=== PATIENT | female | born 1930 | race Caucasian/White ===

== ENCOUNTER → 2016-11-21 | Outpatient (CLI) | payer BC ==
[~2016-11-21] MED LIST: ASPI-232 PO; CALC/MAG/ZINC PO; CHOL1000 PO; HMLI SC; INSDGIPEN SC; LISI-729 PO; NIAC500T11 PO; PLV75 PO; SIMV40TA2 PO
[2016-11-21 10:04] LABS: ESTIMATED AVERAGE GLUCOSE 146 mg/dl; HA1C FLAG Normal (Normal)
[2016-11-21 10:14] LABS: ALT/SGPT 19 U/L (12-78); AST/SGOT 18 U/L (15-37); BLOOD UREA NITROGEN 33 mg/dl (7-18); BUN/CREATININE RATIO 30.3 (10-20); CALCIUM 8.8 mg/dl (8.5-10.1); CARBON DIOXIDE 29 mmol/L (21-32); CHLORIDE 110 mmol/L (98-107); GLUCOSE 97 mg/dl (70-99); POTASSIUM 4.6 mmol/L (3.5-5.1); SODIUM 145 mmol/L (136-145)
[2016-11-21 10:27] LABS: ALKALINE PHOSPHATASE 78 U/L (45-117); CHOLESTEROL 118 mg/dl (0-200); HDL CHOLESTEROL 40 mg/dl; LDL CHOLESTEROL CALCULATED 57 mg/dl; TRIGLYCERIDES 104 mg/dl (0-150); VERY LOW DENSITY LIPOPROT CALC 21 mg/dl
[2016-11-21 10:40] LABS: RATIO 51.6 mcg/mg (0-30.0)
== END | disposition home or self-care (01) ==
LOC: C.LAB1850 08:14
PROVIDERS: ATTEND Nurse Practitioner Family
DX: E11.40 Type 2 diabetes mellitus with diabetic neuropathy, unspecified (principal); I25.10 Atherosclerotic heart disease of native coronary artery without angina pectoris

== ENCOUNTER → 2017-05-19 | Outpatient (CLI) | payer BC ==
[2017-05-19 10:39] LABS: CHOLESTEROL/HDL RATIO 3.3
[2017-05-19 10:43] LABS: RATIO 29.1 mcg/mg (0-30.0)
== END | disposition home or self-care (01) ==
LOC: C.LAB1850 09:08
PROVIDERS: ATTEND Internal Medicine Cardiovascular Disease
DX: E11.40 Type 2 diabetes mellitus with diabetic neuropathy, unspecified (principal); E78.5 Hyperlipidemia, unspecified

== ENCOUNTER → 2017-11-24 | Outpatient (CLI) | payer BC ==
[~2017-11-24] MED LIST changes: +ASPCH81 PO; +CEPH500C PO; +CHOL100027 PO; +CLOP1TAB15 PO; +CYAN10005 PO; +INSU100I2 SQ; +LPT40 PO; +VITA400C3 PO
[2017-11-24 10:05] LABS: HEMOGLOBIN A1C 6.7 % (4.5-5.6)
--- NOTE | 2017-12-08 06:42 | CODING QUERY NO DIAGNOSIS ---
TREATMENT RENDERED WITHOUT A DIAGNOSIS Dr. Syed, To promote full compliance with coding requirements relating to patient care, physician participation is requested in all cases of named account executive uncertainty. Please assist us with providing a diagnosis/symptom for the test(s) below: A diagnosis/symptom was not documented on your Order. A valid diagnosis/symptom is required to bill all insurances. Please remember that we are unable to code a diagnosis of rule out, probable, possible, questionable, or suspected. Tests that require a diagnosis: * SGOT DIAGNOSIS: * LIPID PANEL DIAGNOSIS: * SGPT (ALT) DIAGNOSIS: DATE OF SERVICE: 11/24/17 Provider Signature: Date: Thank you Garfield Hoang [facility] Information Management Once completed, please kindly fax back to [phone] For questions please call [phone]
== END | disposition home or self-care (01) ==
LOC: C.LAB1850 08:36
PROVIDERS: ATTEND Internal Medicine Cardiovascular Disease
DX: E11.40 Type 2 diabetes mellitus with diabetic neuropathy, unspecified (principal); E78.00 Pure hypercholesterolemia, unspecified

== ENCOUNTER → 2018-03-24 | Outpatient (CLI) | payer BC ==
[~2018-03-24] MED LIST changes: -ASPI-232 PO; -CEPH500C PO; -CHOL1000 PO; -HMLI SC; -PLV75 PO; -SIMV40TA2 PO
== END | disposition home or self-care (01) ==
LOC: C.RDSM 14:00
PROVIDERS: ATTEND Family Medicine
DX: M25.551 Pain in right hip (principal); M25.552 Pain in left hip

== ENCOUNTER 2019-05-09 11:10 | Observation (INO) ==
[2019-05-09] MEDS ORDERED: SODIUM CHLORIDE 0.9% 500 ML IV ONE (12:10)
[2019-05-09 12:29] LABS: Appearance Urine Clear (Clear); Bacteria Urine Automated 3+ (Negative); Bilirubin Urine Negative (Negative); Blood Urine 1+ (Negative); Color Urine Yellow; Glucose Urine UA Negative (Negative); Ketones Urine Negative (Negative); Leukocyte Esterase Urine 2+ (Negative); Nitrite Urine Positive (Negative); Protein Urine Negative (Negative); RBC Urine Automated 0-4 /hpf (0-4); Specific Gravity Urine 1.015 (1.000-1.030); Urobilinogen Urine Negative (Negative); WBC Urine Automated >30 /hpf (0-5)
[2019-05-09 12:34] LABS: Basophils # (auto) 0.02 K/uL (0-0.2); Basophils % (auto) 0.3 %; Eosinophils % (auto) 1.3 %; Hematocrit (blood only) 35.8 % (37-47); Hemoglobin 11.7 g/dL (12.0-16.0); Immature Granulocytes # (auto) 0.02 K/uL (0.00-0.02); Immature Granulocytes % (auto) 0.3 %; Lymphocytes # (auto) 3.58 K/uL (1.2-3.4); Lymphocytes % (auto) 45.3 %; Mean Corpuscular Hgb Conc 32.7 g/dL (32-36); Mean Corpuscular Volume 88.6 fL (80-100); Mean Platelet Volume 11.2 fL (7.4-10.4); Monocytes # (auto) 0.33 K/uL (0.11-0.59); Monocytes % (auto) 4.2 %; Neutrophils # (auto) 3.85 K/uL (1.4-6.5); Neutrophils % (auto) 48.6 %; Platelet Count 173 K/uL (130-400); RDW Coefficient of Variation 13.9 % (11.5-14.5); RDW Standard Deviation 44.9 fL (36.4-46.3); Red Blood Count 4.04 M/uL (4.2-5.4)
[2019-05-09 12:41] LABS: Alanine Aminotransferase 41 U/L (12-78); Albumin Level 3.4 gm/dl (3.4-5.0); Aspartate Aminotransferase 35 U/L (15-37); BUN Creatinine Ratio 27.4 (10-20); Blood Urea Nitrogen 36 mg/dl (7-18); Carbon Dioxide 23 mmol/L (21-32); Chloride 106 mmol/L (98-107); Creatinine Clr Calc Pharmacy 25.6 ml/min; Est GFR (African American) 41.6; Est GFR (Non-African American) 35.9; Glucose 213 mg/dl (70-99); Lipase 195 U/L (73-393); Magnesium 1.9 mg/dl (1.8-2.4); Sodium 137 mmol/L (136-145)
--- NOTE | 2019-05-09 12:46 | XRay Report ---
XR chest 1V portable CLINICAL HISTORY: Chest pain. COMPARISON STUDY: Chest radiograph November 28, 2017. FINDINGS: Note is made of median sternotomy wires and mediastinal surgical clips. Cardiomediastinal s ilhouette is normal. There is no pneumothorax or pleural effusion. No consolidation is present. Minim al left lung opacities favor atelectasis. There is subtle interstitial prominence. IMPRESSION: Possible mild pulmonary edema. Electronically signed by: Andrew Rodgers M.D. 05/09/2019 12:44 PM
[2019-05-09 12:52] LABS: Albumin Globulin Ratio 0.9 (0.9-2); Alkaline Phosphatase 90 U/L (45-117); Bilirubin,Total 0.9 mg/dl (0.2-1); Globulin 3.6 gm/dl (2.5-4.0); Phosphorus 3.6 mg/dl (2.5-4.9); Troponin I < 0.015 ng/ml (0-0.045)
[2019-05-09] MEDS ORDERED: cefTRIAXone SODIUM 2,000 MG/70 ML BAG IV STA (12:53)
[2019-05-09] MEDS ORDERED: ACETAMINOPHEN 1,000 MG/100 ML VIAL IV STA (12:54)
[2019-05-09] MEDS ORDERED: OPTIRAY 320 125ml IV PRN (13:28)
--- NOTE | 2019-05-09 13:50 | CT Scan Report ---
UNENHANCED CT OF THE BRAIN; CT ANGIOGRAM OF THE BRAIN; CT ANGIOGRAM OF THE NECK CLINICAL HISTORY: Aphasia. COMPARISON STUDY: CT of the brain dated 11/28/2017. CT angiogram of the head and neck dated 11/29/2017 . TECHNIQUE: Unenhanced axial CT scan of the brain is performed. Subsequently, following the IV adminis tration of 120 of Optiray 320, CT angiogram of the head and neck was performed from the aortic arch t o the vertex. Images are reviewed in the axial, sagittal, and coronal planes. 3-D MIPS images are cre ated and assessed. IV contrast was administered without complication. All measurements were calculate d based on NASCET criteria. A dose lowering technique was utilized adhering to the principles of ALA RA. CT DOSE: 1089.01 mGy.cm FINDINGS: Brain parenchyma: There is age-related involutional change noting minimal microangiopathic disease. T here is no hemorrhage, mass effect, or evidence of acute territorial ischemia by CT criteria. There i s no evidence of enhancing mass lesion on the angiogram phase images. The ventricles, sulci, and cist erns are prominent secondary to involutional change. Hernandez-white matter differentiation is preserved. No extra-axial fluid collection is seen. Thoracic aorta: There is atherosclerotic calcification of the thoracic aorta. Visualized portions of the thoracic aorta are normal in caliber. The aortic arch demonstrates standard 3-vessel anatomy. Right carotid arterial system: The right common carotid artery is widely patent, as are the right int ernal and external carotid arteries. Atherosclerotic plaque is noted in the carotid bulb. Left carotid arterial system: The left common carotid artery is widely patent. There is less than 50% luminal narrowing at the origin of the left internal carotid artery secondary to calcified plaque. T he left internal carotid artery is otherwise widely patent. There is high-grade stenosis of the origi n of the left external carotid artery. The remainder of the vessels patent. Vertebral arteries: The vertebral arteries are widely patent and codominant. Subclavian arteries: Widely patent bilaterally. Intracranial vasculature: There is atherosclerotic calcification of the cavernous carotid and vertebr al arteries. The [place] is developmentally complete. The internal carotid arteries are yanez nt at the skull base, as are the anterior and middle cerebral arteries bilaterally. The vertebrobasil ar system and posterior cerebral arteries are widely patent. The vertebral arteries are codominant. T here is no aneurysm, high-grade stenosis, or focal vessel cut off seen throughout the intracranial ci rculation. Jugular veins: Patent bilaterally. Dural sinuses: Patent. Lung apices: Midline sternotomy wires are noted. Partially visualized upper lobe lung parenchyma appe ars clear. Soft tissues: The visualized pharyngeal soft tissues are normal in appearance noting angiographic pha se technique. The oropharyngeal airway appears widely patent. There are subcentimeter low-attenuation thyroid nodules. Calcifications are present within both thyroid lobes. The salivary glands are aguilar l in appearance. No cervical lymphadenopathy is seen. There are scattered calcified tonsilliths. Skeletal structures: The skeletal structures are osteopenic. The calvarium appears intact. The cervic al spine is maintained noting multilevel spondylosis. No lytic or blastic lesion is seen. Orbits: The bony orbits are intact. Orbital contents are normal in appearance noting bilateral ocular lens implants. Sinuses and mastoids: There is trace mucosal thickening within the maxillary antra. The remaining par anasal sinuses are clear. The mastoid air cells are well pneumatized. IMPRESSION: 1. There is no hemorrhage, mass effect, or evidence of acute territorial ischemia by CT criteria. 2. Unremarkable CT angiogram of the brain. 3. There is less than 50% stenosis at the origin of the left internal carotid artery secondary to sof t plaque. 4. There is high-grade stenosis at the origin of the left external carotid artery. 5. Otherwise unremarkable CT angiogram of the neck. Electronically signed by: Abdoul Shanks M.D. 05/09/2019 1:49 PM
--- NOTE | 2019-05-09 18:13 | History & Physical Report ---
Date of Service May 09, 2019 Assessment & Plan (1) UTI (urinary tract infection): Patient is an 88 year old female with PMHx DM2, S/P CABGx4, HLD, Spinal Stenosis, presenting initially with chief complaint of aphasia and dysuria. UTI -Urine in ED was (+) for Nitrates, Blood, and WBC -Urine sent for culture, results pending -Received 2000mg Ceftriaxone in the ED -Ceftriaxone 1000mg IV Q24h ordered Aphasia -Aphasia appears to have mostly resolved a this point in time. -CT Head negative for acute findings. -MRI pending. -If symptoms worsen/return can consider Neurology consult. -Patient did note a steroid injection in R shoulder 1 week ago. Recent steroid use, while localized, may have some contribution to her altered mental status. Diabetes -Continue home Insulin Glargine scheduled. -SSI ordered. -HgA1C pending. 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 Syed as her [employer] Consultant, next visit in May HLD -Continue home Atorvastatin 40mg QHS Spinal Stenosis of Lumbar Region -Patient states this has been a chronic ongoing issue. -Recently taken off of Gabapentin within the past week. -Currently stable. Dispo: Telemetry Obs. FEN: DM Diet DVT: SCD Code: DNR/DNI Present on Admission?: Yes (2) Aphasia: (3) Diabetes: (4) S/P CABG x 4: (5) HLD (hyperlipidemia): (6) Spinal stenosis of lumbar region: History of Present Illness Chief Complaint: Aphasia Primary Care Provider: Jez Swain DO Patient is an 88 year old female with PMHx of DM2, HLD, HTN, S/P CABGx4, Spinal Stenosis who lives alone at home who presents initially with chief complaint of aphasia and dysuria. Patient states that around midnight last night she was awoken from her sleep with a frontal headache. She notes that she just went back to bed and was awoken again around 7AM this morning when her nephew left her house. She states that at that time she still continued to have her headache, but also was having difficulty word finding and opening her medication bottles. She states that at that time she took 2 aspirin 325mg since she was "afraid of having a stroke" and went back to bed. Around 10:30AM she was awoken by a call from her daughter in law who noted the patient was calling her the wrong name and was still having difficulties talking. At that time she decided to pick the patient up and to bring her to the ED. Patient is currently seated in bed comfortably with her Daughter and Son-in-Law present in the room. She states that she is feeling much better and that her headache has mostly resolved. She does still state she has slight difficulty finding certain words, but that she can understand what people are saying and is able to navigate what she wants to say with other words. She states that she was not having any neurological symptoms yesterday morning or evening, but has been noting some dysuria and burning when she urinates. She notes that she has a similar course in the past where she would have a UTI that would progress to altered mental status like symptoms. She states that her most recent episode was 18 months ago and that it had happened again 3 years prior as well. Each time she was treated appropriately with antibiotics and she had no lasting focal deficits after treatment. Allergies Allergy/AdvReac Type Severity Reaction Status Date / Time No Known Allergies Allergy Mild Unverified 05/09/19 11:56 Home Medications Home Medications Medication Instructions Recorded Confirmed Type atorvastatin 40 mg tablet 40 mg PO HS #90 tab 05/03/19 05/09/19 History blood sugar diagnostic strips #10 ea 05/03/19 05/09/19 History clopidogrel 75 mg tablet 75 mg PO HS tab 05/03/19 05/09/19 History insulin glargine (U- 100) 100 18 units SUBCUT HS #2 ml 05/03/19 05/09/19 History unit/mL subcutaneous solution insulin lispro (U- 100) 100 6 units SUBCUT DAILY@1200,1800 #1 05/03/19 05/09/19 History unit/mL subcutaneous pen ml insulin syringe U-100 with needle #10 ea 05/03/19 05/09/19 History 0.5 mL 31 gauge x 12/30" lisinopril 5 mg tablet 5 mg PO QAM tab 05/03/19 05/09/19 History multivitamin with minerals tablet 1 tab PO QAM tab 05/03/19 05/09/19 History pen needle, diabetic 32 gauge x #10 ea 05/03/19 05/09/19 History " Past Med/Surg History Medical History Diabetes (Chronic) UTI (urinary tract infection) Surgical History S/P CABG x 4 (Resolved) Family History Sister Diabetes Dyslipidemia Sister Dyslipidemia Brother Heart disease Father Cancer Mother Diabetes Other No pertinent family history in first degree relatives Social History Feels Safe at Home: Yes Smoking Status: Never smoker Hx Alcohol Use: No Hx Substance Use: No Review of Systems Constitutional: no fever, no chills, no body aches and no weakness Eyes: no blind spots, no diplopia, no eye pain, no loss of peripheral vision, no photophobia, not seeing flashes, no tunnel vision and no worsening vision Ear, Nose, Mouth, Throat: no ear pain, no tinnitus, no hearing loss and no dizziness Respiratory: no cough, no chest congestion, no dyspnea and no pain with cough Cardiovascular: + dyspnea on exertion (patient states this is chronic); no chest pain, no radiating jaw, neck or arm pain, no palpitations, no lightheadedness, no edema and no calf pain Gastrointestinal: no abdominal pain, no nausea, no vomiting, no constipation, no diarrhea/loose stools, no blood in stools and no melena Genitourinary: + dysuria and + urinary frequency (states this is chronic); no hematuria and no flank pain Musculoskeletal: + back pain (chronic low back pain); no myalgia and no muscle weakness Integumentary: no rash Neurologic: + loss of sensation (decreased sensation of LE b/l 2/2 neuropathy), + tingling, + paresthesia and + problem reported (Difficulty word finding/aphasia); no localized weakness, no headache(s) and no behavioral changes Psychiatric: no behavioral changes Physical Exam Physical Exam: Exam as done by Silvia Escalera DO: Constitutional: WD/WN, vitals as above well developed, well nourished and cooperative; no acute distress Eyes: PERRL, conjunctivae normal, anicteric sclerae normal visual guthrie by confrontation, + anicteric sclerae, PERRL and EOM intact bilaterally ENMT: external ear and nose normal, oropharynx normal Neck: trachea midline, no thyromegaly normal visual inspection and trachea midline Respiratory: normal respiratory effort, lungs clear to auscultation Cardiovascular: Rate/Rhythm: regular rate and regular rhythm Heart Sounds: normal S1 and normal S2 Extremities: no calf tenderness and no edema Gastrointestinal (Abdomen): Inspection/Auscultation: abdomen normal to inspection and normal bowel sounds; abdomen not distended Percussion/Palpation: abdomen soft; abdomen nontender and abdomen not rigid Musculoskeletal: Head/Neck/Chest: normocephalic and head atraumatic Neg for peripheral LE edema, + pedal pulses Skin: no rashes, warm and dry Neurologic: normal touch/pain/proprioception, CN's II-XI intact bilaterally and awake; not confused and not obtunded Speech / Cognition: + abnormal speech (slow speech pattern with pauses for word finding) and + expressive aphasia Motor/Sensory: no pronator drift Cranial Nerves: PERRL, normal accommodation, EOM intact bilaterally, normal facial strength, tongue midline, normal hearing, able to rotate head bilaterally, able to elevate shoulders bilaterally, no nystagmus and symmetric palate elevation Psychiatric: A+Ox3, euthymic affect Genitourinary: no CVA tenderness Lymphatic: Exam as done by Silvia Escalera DO Results & Data Vital Signs (Past 12 Hours) Vital Signs Temp Pulse Pulse Resp BP BP Pulse Ox 05/09/19 15:00 54 L 16 153/75 H 97 05/09/19 13:16 49 L 16 162/58 H 95 05/09/19 12:10 98 05/09/19 11:20 36.5 C 64 18 153/66 H 98 Laboratory Results Abnormal lab results 05/09/19 05/09/19 05/09/19 Range/Units 11:35 11:35 12:15 RBC 4.04 L (4.2-5.4) M/uL Hgb 11.7 L (12.0-16.0) g/dL Hct 35.8 L (37-47) % MPV 11.2 H (7.4-10.4) fL Lymph # (Auto) 3.58 H (1.2-3.4) K/uL BUN 36 H (7-18) mg/dl Creatinine 1.32 H (0.6-1.2) mg/dl BUN/Creatinine Ratio 27.4 H (10-20) Glucose 213 H (70-99) mg/dl Urine Blood 1+ H (Negative) Urine Nitrite Positive A (Negative) Ur Leukocyte Esterase 2+ H (Negative) Urine WBC (Auto) >30 H (0-5) /hpf U Epithel Cells (Auto) 5-10 H (0-5) /lpf Urine Bacteria (Auto) 3+ H (Negative) Medications Administered Current Inpatient Medications Ioversol (Optiray 320 125ml) 120 ml IV ONCE PRN PRN Reason: Interaction Checking Stop: 05/13/19 13:27 Last Admin: 05/09/19 13:29 Dose: 120 ml Documented by: Code Status & VTE Plan Code Status DNR/DNI VTE Prophylaxis Plan VTE Prophylaxis will be ordered: Yes Supervising Physician Co-Signing Physician Notes Pt seen and examined by me. States word finding issues earlier this AM, but improving. Still not at her usual. Hx of similar sx about 18 months go with UTI. 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 Also notes urinary burning. Denies chest pain or SOB. Tolerating PO without issue. Agree with HPI/ROS as noted by resident See above for my exam in PE section Agree with plan as outlined above UTI, ceftriaxone, cx pending TIA vs CVA vs early sepsis from UTI CT head/CTA noted MRI pending Continue plavix Hold on neuro c/s for now given similar sx with UTI and on plavix Cr 1.3, baseline cr 1.3--monitor Taking PO, no IVF PG Care Time/CCT Total # of Minutes Spent Total Time Spent with Patient: Total time spent is greater than 50% in coordination of care (as documented) at patient's floor/unit and/or counseling patient: Resident Activity Tracking Resident Involvement: Resident Care Provided Care Provided: Adult Hospital Medicine
--- NOTE | 2019-05-09 19:49 | Emergency Department Note ---
Entered by Georgina Dooley acting as a scribe for Lawson Shook MD History of Present Illness General Chief complaint: Urinary Symptoms Stated complaint: UTI Time Seen by Provider: 05/09/19 12:09 Source: patient History of Present Illness Onset (ago): hour(s) (14) Location: head Severity: similar to prior episodes Pain Consistency: + other (persistent) Maximum Pain Intensity: 8 Quality: + other (aphasia) Associated symptoms: + headaches and + other (positive trouble finding right words; positive difficulty getting words out; positive slurring words; negative diarrhea); no nausea/vomiting Treatments prior to arrival: aspirin The patient is a 88 year old female who presents to the Emergency Room with complaints of persistent aphasia that began last night at about 2230, about 14 hours prior to arrival, per the patient's daughter. The patient's daughter states that she was on the phone with the patient last night at this time and the patient was having trouble finding the right words and getting her words out. Per the patient's daughter, the patient is somewhat slurring her words. The patient states that she had a headache that began last night and lasted throughout the night. She states that she took Aspirin this morning for her symptoms. Per the patient's daughter, the patient has had two prior episodes of this and she was found to have UTI at this time and it was believed that the patient may have had a TIA. The patient denies nausea, vomiting, and diarrhea. Home Medications Home Medications Medication Instructions Recorded Confirmed Type atorvastatin 40 mg tablet 40 mg PO HS #90 tab 05/03/19 05/09/19 History blood sugar diagnostic strips #10 ea 05/03/19 05/09/19 History clopidogrel 75 mg tablet 75 mg PO HS tab 05/03/19 05/09/19 History insulin glargine (U- 100) 100 18 units SUBCUT HS #2 ml 05/03/19 05/09/19 History unit/mL subcutaneous solution insulin lispro (U- 100) 100 6 units SUBCUT DAILY@1200,1800 #1 05/03/19 05/09/19 History unit/mL subcutaneous pen ml insulin syringe U-100 with needle #10 ea 05/03/19 05/09/19 History 0.5 mL 31 gauge x 5/16" lisinopril 5 mg tablet 5 mg PO QAM tab 05/03/19 05/09/19 History multivitamin with minerals tablet 1 tab PO QAM tab 05/03/19 05/09/19 History pen needle, diabetic 32 gauge x #10 ea 05/03/19 05/09/19 History /32" Allergies Allergy/AdvReac Type Severity Reaction Status Date / Time No Known Allergies Allergy Mild Unverified 05/09/19 11:56 Past Med/Surg History Medical History Diabetes (Chronic) UTI (urinary tract infection) Surgical History S/P CABG x 4 (Resolved) Family History Sister Diabetes Dyslipidemia Sister Dyslipidemia Brother Heart disease Father Cancer Mother Diabetes Other No pertinent family history in first degree relatives Social History Preferred Language: Venezuelan Communication Ability: Effective Business Continuity Planning Director Required: No Beliefs That Will Affect Care: None Current Living Situation: Alone Other Information That Helps Us Care for You: No Feels Safe at Home: Yes Safety Concerns: Feels Safe At This Time Smoking Status: Never smoker Do You Dip or Chew Tobacco: No ; Second Hand Exposure: No ; Tobacco Cessation Education Requested by Patient: No Hx Alcohol Use: No Hx Substance Use: No Review of Systems See HPI for pertinent positives & negatives. and A total of 10 systems reviewed and were otherwise negative Physical Exam Vital Signs Vital Signs - 24 hr 05/09/19 11:20 05/09/19 12:10 05/09/19 13:16 Temperature 36.5 C Temperature Source Oral Sepsis Recent Fever Within 48 Hours No Sepsis New/Unexplained Change in Mental Status No Sepsis Action Taken by Nursing No Action Required Pulse Rate 64 Pulse Rate [Left] 49 L Respiratory Rate 18 16 Respiratory Effort / Characteristics Non-Labored Non-Labored Spontaneous Respiratory Depth Normal Blood Pressure 153/66 H Blood Pressure [Left Arm] 162/58 H Blood Pressure Mean 95 Blood Pressure Mean [Left Arm] 92 Blood Pressure Position [Left Arm] Lying Pulse Oximetry 98 98 95 Oxygen Delivery Method Room Air Room Air Room Air 05/09/19 15:00 Temperature Temperature Source Sepsis Recent Fever Within 48 Hours Sepsis New/Unexplained Change in Mental Status Sepsis Action Taken by Nursing Pulse Rate Pulse Rate [Left] 54 L Respiratory Rate 16 Respiratory Effort / Characteristics Respiratory Depth Blood Pressure Blood Pressure [Left Arm] 153/75 H Blood Pressure Mean Blood Pressure Mean [Left Arm] 101 Blood Pressure Position [Left Arm] Pulse Oximetry 97 Oxygen Delivery Method Room Air GENERAL: Awake, alert, fatigued-appearing, in no distress HENT: Normocephalic, atraumatic. Oropharynx with dry mucous membranes and otherwise unremarkable. EYES: Normal conjunctiva. Sclera non-icteric. EOMI. No nystamgus. PEARRL. NECK: Supple. No nuchal rigidity. FROM. No JVD. RESPIRATORY: CTAB. CARDIAC: Regular rate, normal rhythm. Extremities warm and well perfused. Pulses equal. ABDOMEN: Soft, non-distended. No tenderness to palpation. No rebound or guarding. No masses. RECTAL: Deferred. MUSCULOSKELETAL: Chest examination reveals no tenderness. The back is symmetrical on inspection without obvious abnormality. There is no CVA tenderness to palpation. No joint edema. LOWER EXTREMITIES: Calves are equal size bilaterally and non-tender. No edema. No discoloration. NEURO: Subtle word finding difficulty, fluent speech otherwise. Normal sensorium. No sensory or motor deficits noted. 5/5 strength and SILT x4 extremities. SKIN: No rash or jaundice noted. Course 1240: Past medical records reviewed. The patient was evaluated in room A12B. A complete history and physical exam was performed. 1640: I discussed the patient's case with Dr. Escalera- [facility] Hospitalist, she will accept the patient for further evaluation. Administered Medications Ioversol (Optiray 320 125ml) 120 ml IV ONCE PRN PRN Reason: Interaction Checking Stop: 05/13/19 13:27 Last Admin: 05/09/19 13:29 Dose: 120 ml Documented by: [id number] Discontinued Medications Sodium Chloride (Nss) 500 mls @ 999 mls/hr IV .Q31M ONE Stop: 05/09/19 12:40 Last Infusion: 05/09/19 13:36 Dose: 0 mls/hr Documented by: [id number] Admin: 05/09/19 13:04 Dose: 999 mls/hr Documented by: [id number] Ceftriaxone Sodium (Rocephin) 2,000 mg in 70 mls @ 140 mls/hr IV NOW STA Stop: 05/09/19 13:22 Last Infusion: 05/09/19 13:44 Dose: 0 mls/hr Documented by: [id number] Admin: 05/09/19 13:13 Dose: 140 mls/hr Documented by: [id number] Acetaminophen (Ofirmev) 1,000 mg in 100 mls @ 400 mls/hr IV NOW STA Stop: 05/09/19 13:08 Last Infusion: 05/09/19 13:34 Dose: 0 mls/hr Documented by: [id number] Admin: 05/09/19 13:08 Dose: 400 mls/hr Documented by: [id number] Medical Decision Making Differential Diagnosis Differential Diagnosis includes but is not limited to dehydration, stroke, anemia, hypoglycemia, hyponatremia, hypernatremia, urinary tract infection, pneumonia, bronchitis, sepsis, gastroenteritis, additional abdominal pathology, metabolic abnormalities and infections. Medical Records Attestation: I reviewed the patient's medical records. Home Medications Current Medication List: was personally reviewed by me Laboratory Data Attestation: I reviewed the patient's lab results. Result diagrams: 05/09/19 11:35 05/09/19 11:35 Lab Results 05/09/19 05/09/19 05/09/19 Range/Units 11:35 11:35 12:15 WBC 7.90 (4.8-10.8) K/uL RBC 4.04 L (4.2-5.4) M/uL Hgb 11.7 L (12.0-16.0) g/dL Hct 35.8 L (37-47) % MCV 88.6 (80-100) fL MCH 29.0 (25-34) pg MCHC 32.7 (32-36) g/dL RDW Std Deviation 44.9 (36.4-46.3) fL RDW Coeff of [place] 13.9 (11.5-14.5) % Plt Count 173 (130-400) K/uL MPV 11.2 H (7.4-10.4) fL Immature Gran % (Auto) 0.3 % Neut % (Auto) 48.6 % Lymph % (Auto) 45.3 % Maries % (Auto) 4.2 % Eos % (Auto) 1.3 % Baso % (Auto) 0.3 % Immature Gran # (Auto) 0.02 (0.00-0.02) K/uL Neut # (Auto) 3.85 (1.4-6.5) K/uL Lymph # (Auto) 3.58 H (1.2-3.4) K/uL Maries # (Auto) 0.33 (0.11-0.59) K/uL Eos # (Auto) 0.10 (0-0.5) K/uL Baso # (Auto) 0.02 (0-0.2) K/uL Sodium 137 (136-145) mmol/L Potassium 5.0 (3.5-5.1) mmol/L Chloride 106 (98-107) mmol/L Carbon Dioxide 23 (21-32) mmol/L Anion Gap 8.0 (3-11) BUN 36 H (7-18) mg/dl Creatinine 1.32 H (0.6-1.2) mg/dl Est Cr Clr Drug Dosing 25.6 ml/min Est GFR ( Amer) 41.6 Est GFR (Non-Af Amer) 35.9 BUN/Creatinine Ratio 27.4 H (10-20) Glucose 213 H (70-99) mg/dl Calcium 9.0 (8.5-10.1) mg/dl Phosphorus 3.6 (2.5-4.9) mg/dl Magnesium 1.9 (1.8-2.4) mg/dl Total Bilirubin 0.9 (0.2-1) mg/dl AST 35 (15-37) U/L ALT 41 (12-78) U/L Alkaline Phosphatase 90 (45-117) U/L Troponin I < 0.015 (0-0.045) ng/ml Total Protein 7.0 (6.4-8.2) gm/dl Albumin 3.4 (3.4-5.0) gm/dl Globulin 3.6 (2.5-4.0) gm/dl Albumin/Globulin Ratio 0.9 (0.9-2) Lipase 195 (73-393) U/L TSH 1.440 (0.300-4.500) uIu/ml Urine Color Yellow Urine Appearance Clear (Clear) Urine pH 5.0 (4.5-7.5) Ur Specific [place] 1.015 (1.000-1.030) Urine Protein Negative (Negative) Urine Glucose (UA) Negative (Negative) Urine Ketones Negative (Negative) Urine Blood 1+ H (Negative) Urine Nitrite Positive A (Negative) Urine Bilirubin Negative (Negative) Urine Urobilinogen Negative (Negative) Ur Leukocyte Esterase 2+ H (Negative) Urine WBC (Auto) >30 H (0-5) /hpf Urine RBC (Auto) 0-4 (0-4) /hpf U Hyaline Cast (Auto) 1-5 (0-5) /lpf U Epithel Cells (Auto) 5-10 H (0-5) /lpf Urine Bacteria (Auto) 3+ H (Negative) Imaging Data Radiologist's Impression: Radiology results as stated below per my review and the radiologist's interpretation: XR chest 1V portable CLINICAL HISTORY: Chest pain. COMPARISON STUDY: Chest radiograph November 28, 2017. FINDINGS: Note is made of median sternotomy wires and mediastinal surgical clips. Cardiomediastinal silhouette is normal. There is no pneumothorax or pleural effusion. No consolidation is present. Minimal left lung opacities favor atelectasis. There is subtle interstitial prominence. IMPRESSION: Possible mild pulmonary edema. Electronically signed by: Andrew Rodgers M.D. 05/09/2019 12:[address] OF THE BRAIN; CT ANGIOGRAM OF THE BRAIN; CT ANGIOGRAM OF THE NECK CLINICAL HISTORY: Aphasia. COMPARISON STUDY: CT of the brain dated 11/28/2017. CT angiogram of the head and neck dated 11/29/2017. TECHNIQUE: Unenhanced axial CT scan of the brain is performed. Subsequently, following the IV administration of 120 of Optiray 320, CT angiogram of the head and neck was performed from the aortic arch to the vertex. Images are reviewed in the axial, sagittal, and coronal planes. 3-D MIPS images are created and assessed. IV contrast was administered without complication. All measurements were calculated based on NASCET criteria. A dose lowering technique was utilized adhering to the principles of ALARA. CT DOSE: 1089.01 mGy.cm FINDINGS: Brain parenchyma: There is age-related involutional change noting minimal microangiopathic disease. There is no hemorrhage, mass effect, or evidence of acute territorial ischemia by CT criteria. There is no evidence of enhancing mass lesion on the angiogram phase images. The ventricles, sulci, and cisterns are prominent secondary to involutional change. Hernandez-white matter differentiation is preserved. No extra-axial fluid collection is seen. Thoracic aorta: There is atherosclerotic calcification of the thoracic aorta. Visualized portions of the thoracic aorta are normal in caliber. The aortic arch demonstrates standard 3-vessel anatomy. Right carotid arterial system: The right common carotid artery is widely patent, as are the right internal and external carotid arteries. Atherosclerotic plaque is noted in the carotid bulb. Left carotid arterial system: The left common carotid artery is widely patent. There is less than 50% luminal narrowing at the origin of the left internal carotid artery secondary to calcified plaque. The left internal carotid artery i s otherwise widely patent. 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 The remainder of the vessels patent. Vertebral arteries: The vertebral arteries are widely patent and codominant. Subclavian arteries: Widely patent bilaterally. Intracranial vasculature: There is atherosclerotic calcification of the cavernous carotid and vertebral arteries. The [place] is developmentally complete. The internal carotid arteries are patent at the skull base, as are the anterior and middle cerebral arteries bilaterally. The vertebrobasilar system and posterior cerebral arteries are widely patent. The vertebral arteries are codominant. There is no aneurysm, high-grade stenosis, or focal vessel cut off seen throughout the intracranial circulation. Jugular veins: Patent bilaterally. Dural sinuses: Patent. Lung apices: Midline sternotomy wires are noted. Partially visualized upper lobe lung parenchyma appears clear. Soft tissues: The visualized pharyngeal soft tissues are normal in appearance noting angiographic phase technique. The oropharyngeal airway appears widely patent. There are subcentimeter low-attenuation thyroid nodules. Calcifications are present within both thyroid lobes. The salivary glands are normal in appearance. No cervical lymphadenopathy is seen. There are scattered calcified tonsilliths. Skeletal structures: The skeletal structures are osteopenic. The calvarium appears intact. The cervical spine is maintained noting multilevel spondylosis. No lytic or blastic lesion is seen. Orbits: The bony orbits are intact. Orbital contents are normal in appearance noting bilateral ocular lens implants. Sinuses and mastoids: There is trace mucosal thickening within the maxillary antra. The remaining paranasal sinuses are clear. The mastoid air cells are well pneumatized. IMPRESSION: 1. There is no hemorrhage, mass effect, or evidence of acute territorial ischemia by CT criteria. 2. Unremarkable CT angiogram of the brain. 3. There is less than 50% stenosis at the origin of the left internal carotid artery secondary to soft plaque. 4. There is high-grade stenosis at the origin of the left external carotid artery. 5. Otherwise unremarkable CT angiogram of the neck. Electronically signed by: Abdoul Shanks M.D. 05/09/2019 1:49 PM ECG Data Attestation: I personally reviewed and interpreted this ECG as follows: Indication: weakness Rate (beats per minute): 45 Rhythm: sinus bradycardia Findings: + left axis deviation; no acute ischemic change Blood Pressure Blood Pressure Findings: Elevated blood pressure Blood Pressure Disposition: further management by hospitalist SILVANO Narrative The patient is a pleasant 88-year-old woman with a past medical history of hypertension, hyperlipidemia, CABG on Plavix, history of TIA who presents emergency department with difficulty with word finding that began last night and persisted to this morning with associated mild headache per hpi. Of note, the patient arrives coming by her daughter and they report that she had similar symptoms over a year ago that was in the setting of a UTI. However I did review the patient's notes from this admission and while she did have a urinary tract infection it was thought that she had MRI findings that could have suggested a TIA. At that time it was recommended that the patient be on dual antiplatelet therapy for 3 months. Arrival patient is no acute distress, afebrile stable vital signs. The patient appears clinically dry. She does have subtle word finding difficulty but is otherwise able to speak fluently. Daughter reports that the subtle word finding difficulty she exhibits is not her normal status as she is usually quite sharp. On arrival patient is clinically dry. She has intact [id number] and alternating palms. 5/5 strength and SILT x 4 extremities. EKG without overt acute ischemia. Chest x-ray negative for acute process. WBC within normal limits. H/H 11.7/35.8 approximate 2 prior range of values. Platelets within normal limits. Chemistry without acidosis. Creatinine 1.32 similar to prior range of values. Electrolytes and LFTs unremarkable. Troponin negative. UA is consistent with infection with nitrite positive, LE 2+, WBC> 30, 3+ bacteria. Patient was ordered for dose of ceftriaxone. CT head and CTA head and neck negative for acute process and otherwise demonstrates <50% stenosis at the origin of the left ICA and high- grade stenosis at the origin of the left ECA. While the patient does have a UTI which could contribute to the patient's symptoms either directly or by locus menoris, given the patient's history of previous TIA with symptoms that are similar reasonable to admit for further stroke evaluation. Patient and family are agreeable with admission. Case was discussed [place]. [place]alera, [facility] [place], who will evaluate the patient for admission. Impression & Plan Aphasia, Acute UTI Discharge Plan Visit Data *Final* Discharge Date/Time: 05/09/19 20:30 Chief Complaint: Urinary Symptoms Stated Complaint: UTI ED Provider: Lawson Shook Discharge Problem: Aphasia, Acute UTI Patient Disposition: Admitted As Inpatient Discharge Instructions Interventions: ED Discharge Assessment Last Done: 05/09/19 20:30 The scribe's documentation has been prepared under my direction and personally reviewed by me in its entirety. I confirm that the note above accurately reflects all work, treatment, procedures, and medical decision making performed by me.
[2019-05-09] MEDS ORDERED: PHARMACIST DISCHARGE MED REC CONSULT PRN (20:46)
[2019-05-09] MEDS ORDERED: GLUCOSE 40% GEL 15 GM TUBE PO PRN (20:46)
[2019-05-09] MEDS ORDERED: CARBOHYDRATES FOR HYPOGLYCEMIA PO PRN (20:46)
[2019-05-09] MEDS ORDERED: GLUCOSE 10 TABS/TUBE PO PRN (20:46)
[2019-05-09] MEDS ORDERED: ACETAMINOPHEN 325 MG TAB PO PRN (20:46)
[2019-05-09] MEDS ORDERED: GLUCAGON FOR INJ 1 MG VIAL SQ PRN (20:46)
[2019-05-09] MEDS ORDERED: ONDANSETRON INJ 2 MG/ML 2 ML VIAL IV PRN (20:46)
[2019-05-09] MEDS ORDERED: DEXTROSE 50% 50 ML SYRINGE IV PRN (20:46)
[2019-05-09] MEDS ORDERED: MAGNESIUM HYDROXIDE SUSP 30 ML UDC PO PRN (20:46)
[2019-05-09] MEDS ORDERED: ATORVASTATIN 40 MG TAB PO SCH (21:00)
[2019-05-09] MEDS ORDERED: INSULIN GLARGINE SOLOSTAR 100 UNITS/ML 3 ML PEN SQ SCH (21:00)
[2019-05-09] MEDS ORDERED: CLOPIDOGREL BISULFATE 75 MG TAB PO SCH (21:00)
[2019-05-09] MEDS ORDERED: INFLUENZA ADMINISTRATION CHARGE ONE (21:30)
[2019-05-09] MEDS ORDERED: INFLUENZA VIRUS QUAD VACCINE 0.5 ML SYR IM ONE (21:30)
[2019-05-09] MEDS: INSULIN ASPART 100 UNITS/ML 3 ML PEN SC SCH (22:35)
--- NOTE | 2019-05-09 22:35 | Magnetic Resonance Report ---
MR brain wo con HISTORY: 88 years-old Female Stroke like symptoms acute headache with strokelike symptoms. COMPARISON: CT head of same day, brain MRI 11/29/2017 TECHNIQUE: Multiplanar multisequence MRI of the brain was obtained without the use of IV contrast. FINDINGS: Hydro Station Operator localizer images demonstrate no gross extracranial abnormality. No restricted diffusion to sugg est acute or subacute infarction. 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 No cerebellar tonsillar herniation. Degenerative changes are note d about the imaged cervical spine. Age-related involutional changes. No acute intracranial hemorrhage, midline shift, abnormal extra axi al collections, hydrocephalus or intracranial mass identified. Minimal patchy white matter hyperinten sities are suggestive of chronic microvascular ischemic disease. Major flow voids at the level of the skull base appear patent. Mastoid air cells are clear. Mild mucosal thickening of the paranasal sinu ses and nasal turbinates. Prior bilateral cataract repair. Skull and soft tissues are within normal l imits. IMPRESSION: No acute intracranial abnormality, specifically no acute or subacute infarction. The above report was generated using voice recognition software. It may contain grammatical, syntax o r spelling errors. Electronically signed by: Beto Veloz M.D. 05/09/2019 10:34 PM
[2019-05-10 07:04] LABS: Hematocrit (blood only) 32.4 % (37-47); Hemoglobin 10.6 g/dL (12.0-16.0); Mean Corpuscular Hemoglobin 29.1 pg (25-34); Mean Corpuscular Hgb Conc 32.7 g/dL (32-36); Mean Platelet Volume 10.8 fL (7.4-10.4); Platelet Count 146 K/uL (130-400); RDW Coefficient of Variation 13.9 % (11.5-14.5); RDW Standard Deviation 45.2 fL (36.4-46.3); Red Blood Count 3.64 M/uL (4.2-5.4); White Blood Count 6.47 K/uL (4.8-10.8)
[2019-05-10 07:35] LABS: Estimated Average Glucose 157 mg/dl; Hemoglobin A1C 7.1 % (4.5-5.6)
[2019-05-10 07:38] LABS: ALC (manual) 2.53 K/uL (1.2-3.4); ANC (manual) 3.38 K/uL (1.4-6.5); Eosinophils # (manual) 0.11 K/uL (0-0.5); Eosinophils % (manual) 1.7 %; Lymphocytes # (manual) 2.53 K/uL (1.2-3.4); Lymphocytes % (manual) 39.1 %; Monocytes # (manual) 0.45 K/uL (0.11-0.59); Neutrophils # (manual) 3.38 K/uL (1.4-6.5); Neutrophils % (manual) 52.2 %; RBC Morphology Unremarkable
[2019-05-10 07:40] LABS: BUN Creatinine Ratio 27.5 (10-20); Calcium 8.8 mg/dl (8.5-10.1); Creatinine Clr Calc Pharmacy 27.9 ml/min; Est GFR (African American) 46.7; Est GFR (Non-African American) 40.3; Potassium 4.7 mmol/L (3.5-5.1)
[2019-05-10] MEDS: INSULIN ASPART 100 UNITS/ML 3 ML PEN SC SCH ×2 (08:06→12:15)
[2019-05-10] MEDS ORDERED: lisinopriL 5 MG TAB PO SCH (09:00)
[2019-05-10] MEDS ORDERED: cefTRIAXone SODIUM 1,000 MG in DEXTROSE 5% 50 ML IV SCH (13:00)
[2019-05-10] MEDS ORDERED: STROKE PATIENT DISCHARGE STA (16:02)
--- NOTE | 2019-05-10 18:40 | Discharge Summary ---
Date of Service May 10, 2019 Admission HPI Per Admitting Provider Patient is an 88 year old female with PMHx of DM2, HLD, HTN, S/P CABGx4, Spinal Stenosis who lives alone at home who presents initially with chief complaint of aphasia and dysuria. Patient states that around midnight last night she was awoken from her sleep with a frontal headache. She notes that she just went back to bed and was awoken again around 7AM this morning when her nephew left her house. She states that at that time she still continued to have her headache, but also was having difficulty word finding and opening her medication bottles. She states that at that time she took 2 aspirin 325mg since she was "afraid of having a stroke" and went back to bed. Around 10:30AM she was awoken by a call from her daughter in law who noted the patient was calling her the wrong name and was still having difficulties talking. At that time she decided to pick the patient up and to bring her to the ED. Patient is currently seated in bed comfortably with her Daughter and Son-in-Law present in the room. She states that she is feeling much better and that her headache has mostly resolved. She does still state she has slight difficulty finding certain words, but that she can understand what people are saying and is able to navigate what she wants to say with other words. She states that she was not having any neurological symptoms yesterday morning or evening, but has been noting some dysuria and burning when she urinates. She notes that she has a similar course in the past where she would have a UTI that would progress to altered mental status like symptoms. She states that her most recent episode was 18 months ago and that it had happened again 3 years prior as well. Each time she was treated appropriately with antibiotics and she had no lasting focal deficits after treatment. Admission Exam Per Admitting Provider Physical Exam Physical Exam: Exam as done by Silvia Escalera, DO: Constitutional: WD/WN, vitals as above well developed, well nourished and cooperative; no acute distress Eyes: PERRL, conjunctivae normal, anicteric sclerae normal visual guthrie by confrontation, + anicteric sclerae, PERRL and EOM intact bilaterally ENMT: external ear and nose normal, oropharynx normal Neck: trachea midline, no thyromegaly normal visual inspection and trachea midline Respiratory: normal respiratory effort, lungs clear to auscultation Cardiovascular: Rate/Rhythm: regular rate and regular rhythm Heart Sounds: normal S1 and normal S2 Extremities: no calf tenderness and no edema Gastrointestinal (Abdomen): Inspection/Auscultation: abdomen normal to inspection and normal bowel sounds; abdomen not distended Percussion/Palpation: abdomen soft; abdomen nontender and abdomen not rigid Musculoskeletal: Head/Neck/Chest: normocephalic and head atraumatic Neg for peripheral LE edema, + pedal pulses Skin: no rashes, warm and dry Neurologic: normal touch/pain/proprioception, CN's II-XI intact bilaterally and awake; not confused and not obtunded Speech / Cognition: + abnormal speech (slow speech pattern with pauses for word finding) and + expressive aphasia Motor/Sensory: no pronator drift Cranial Nerves: PERRL, normal accommodation, EOM intact bilaterally, normal facial strength, tongue midline, normal hearing, able to rotate head bilaterally, able to elevate shoulders bilaterally, no nystagmus and symmetric palate elevation Psychiatric: A+Ox3, euthymic affect Genitourinary: no CVA tenderness Lymphatic: Exam as done by Silvia Escalera, Principal Diagnosis TIA, UTI Discharge Exam Constitutional WD/WN, vitals as above Eyes PERRL, conjunctivae normal, anicteric sclerae ENMT external ear and nose normal, oropharynx normal Neck trachea midline, no thyromegaly Respiratory normal respiratory effort, lungs clear to auscultation Cardiovascular RRR, no murmur, no edema Gastrointestinal (Abdomen) normal bowel sounds, soft, nontender, no hepatosplenomegaly Musculoskeletal no cyanosis or clubbing, extremities motor strength 5/5 Skin no rashes, warm and dry Neurologic PERRL, EOMI, accommodation nl, no face palsy, no dysarthria Psychiatric A+Ox3, euthymic affect Discharge Data Allergies Allergy/AdvReac Type Severity Reaction Status Date / Time No Known Allergies Allergy Mild Unverified 05/09/19 11:56 Consultations 05/09/19 16:58 ED Decision to Admit Stat 05/09/19 20:46 Consult Case Management - Discharge Planning Routine Consult Case Management - Discharge Planning Routine Ordered Studies 05/09/19 12:49 CT angio head w con Stat CT angio neck with con Stat CT head/brain wo con Stat 05/09/19 20:46 MR brain wo con Routine [place], [place] [phone] Magnetic Resonance Report Patient: JAKE WINCHESTER Admit Date: 05/09/19 MR#: [id number] Address1: [address] GARNER Acct ID:[id number] Address2: Date: [address] [facility] Zip: [place] [address] Age: 88 Location: 2S Sex: F Room/Bed: [facility] Att Phy: Silvia Escalera DO Diagnosis: UTI,STROKE LIKE SYMPTOMS Anusha Phy: Jez Swain D.O. Service Date: 05/09/19 Fam Phy: Interpreting Phy: Angel Veloz Admit Phy: Silvia Escalera DO Ordering Phy: Chris Solorio DO cc: ~ MR brain wo con HISTORY: 88 years-old Female Stroke like symptoms acute headache with strokelike symptoms. COMPARISON: CT head of same day, brain MRI 11/29/2017 TECHNIQUE: Multiplanar multisequence MRI of the brain was obtained without the use of IV contrast. FINDINGS: Adult Ministries Director localizer images demonstrate no gross extracranial abnormality. No restricted diffusion to suggest acute or subacute infarction. 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 No cerebellar tonsillar herniation. Degenerative changes are noted about the imaged cervical spine. Age-related involutional changes. No acute intracranial hemorrhage, midline shift, abnormal extra axial collections, hydrocephalus or intracranial mass identified. Minimal patchy white matter hyperintensities are suggestive of chronic microvascular ischemic disease. Major flow voids at the level of the skull base appear patent. Mastoid air cells are clear. Mild mucosal thickening of the paranasal sinuses and nasal turbinates. Prior bilateral cataract repair. Skull and soft tissues are within normal limits. IMPRESSION: No acute intracranial abnormality, specifically no acute or subacute infarction. The above report was generated using voice recognition software. It may contain grammatical, syntax or spelling errors. Electronically signed by: Beto Veloz M.D. 05/09/2019 10:34 PM Dictated: 05/09/192229 Transcribed: 05/09/192229 [place], [place] [phone] CT Scan Report Patient: JAKE WINCHESTER Admit Date: 05/09/19 MR#: [id number] Address1: Tamika GARNER Acct ID:[id number] Address2: Date: [address] [facility] Zip: [place] [address] Age: 88 Location: ED Sex: F Room/Bed: Att Phy: Diagnosis: UTI Anusha Phy: Jez Swain D.O. Service Date: 05/09/19 Fam Phy: Interpreting Phy: Abdoul Shanks MD Admit Phy: Ordering Phy: Lawson Shook M.D. cc: ~ UNENHANCED CT OF THE BRAIN; CT ANGIOGRAM OF THE BRAIN; CT ANGIOGRAM OF THE NECK CLINICAL HISTORY: Aphasia. COMPARISON STUDY: CT of the brain dated 11/28/2017. CT angiogram of the head and neck dated 11/29/2017. TECHNIQUE: Unenhanced axial CT scan of the brain is performed. Subsequently, following the IV administration of 120 of Optiray 320, CT angiogram of the head and neck was performed from the aortic arch to the vertex. Images are reviewed in the axial, sagittal, and coronal planes. 3-D MIPS images are created and assessed. IV contrast was administered without complication. All measurements were calculated based on NASCET criteria. A dose lowering technique was utilized adhering to the principles of ALARA. CT DOSE: 1089.01 mGy.cm FINDINGS: Brain parenchyma: There is age-related involutional change noting minimal microangiopathic disease. There is no hemorrhage, mass effect, or evidence of acute territorial ischemia by CT criteria. There is no evidence of enhancing mass lesion on the angiogram phase images. The ventricles, sulci, and cisterns are prominent secondary to involutional change. Hernandez-white matter differentiation is preserved. No extra-axial fluid collection is seen. Thoracic aorta: There is atherosclerotic calcification of the thoracic aorta. Visualized portions of the thoracic aorta are normal in caliber. The aortic arch demonstrates standard 3-vessel anatomy. Right carotid arterial system: The right common carotid artery is widely patent, as are the right internal and external carotid arteries. Atherosclerotic plaque is noted in the carotid bulb. Left carotid arterial system: The left common carotid artery is widely patent. There is less than 50% luminal narrowing at the origin of the left internal carotid artery secondary to calcified plaque. The left internal carotid artery is otherwise widely patent. 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 The remainder of the vessels patent. Vertebral arteries: The vertebral arteries are widely patent and codominant. Subclavian arteries: Widely patent bilaterally. Intracranial vasculature: There is atherosclerotic calcification of the cavernous carotid and vertebral arteries. The [place] is de velopmentally complete. The internal carotid arteries are patent at the skull base, as are the anterior and middle cerebral arteries bilaterally. The vertebrobasilar system and posterior cerebral arteries are widely patent. The vertebral arteries are codominant. There is no aneurysm, high-grade stenosis, or focal vessel cut off seen throughout the intracranial circulation. Jugular veins: Patent bilaterally. Dural sinuses: Patent. Lung apices: Midline sternotomy wires are noted. Partially visualized upper lobe lung parenchyma appears clear. Soft tissues: The visualized pharyngeal soft tissues are normal in appearance noting angiographic phase technique. The oropharyngeal airway appears widely patent. There are subcentimeter low-attenuation thyroid nodules. Calcifications are present within both thyroid lobes. The salivary glands are normal in appearance. No cervical lymphadenopathy is seen. There are scattered calcified tonsilliths. Skeletal structures: The skeletal structures are osteopenic. The calvarium appears intact. The cervical spine is maintained noting multilevel spondylosis. No lytic or blastic lesion is seen. Orbits: The bony orbits are intact. Orbital contents are normal in appearance noting bilateral ocular lens implants. Sinuses and mastoids: There is trace mucosal thickening within the maxillary antra. The remaining paranasal sinuses are clear. The mastoid air cells are well pneumatized. IMPRESSION: 1. There is no hemorrhage, mass effect, or evidence of acute territorial ischemia by CT criteria. 2. Unremarkable CT angiogram of the brain. 3. There is less than 50% stenosis at the origin of the left internal carotid artery secondary to soft plaque. 4. There is high-grade stenosis at the origin of the left external carotid artery. 5. Otherwise unremarkable CT angiogram of the neck. Electronically signed by: Abdoul Shanks M.D. 05/09/2019 1:49 PM Dictated: 05/09/19 1339 Transcribed: 05/09/19 1339 [facility], [place] [phone] CT Scan Report Patient: JAKE WINCHESTER Admit Date: 05/09/19 MR#: [id number] Address1: [address] [facility] Acct ID:[id number] Address2: Date: [address] [facility] Zip: [place] [address] Age: 88 Location: ED Sex: F Room/Bed: Att Phy: Diagnosis: UTI Anusha Phy: Jez Swain D.O. Service Date: 05/09/19 [facility] Phy: Interpreting Phy: Abdoul Shanks MD Admit Phy: Ordering Phy: Lawson Shook M.D. cc: ~ UNENHANCED CT OF THE BRAIN; CT ANGIOGRAM OF THE BRAIN; CT ANGIOGRAM OF THE NECK CLINICAL HISTORY: Aphasia. COMPARISON STUDY: CT of the brain dated 11/28/2017. CT angiogram of the head and neck dated 11/29/2017. TECHNIQUE: Unenhanced axial CT scan of the brain is performed. Subsequently, following the IV administration of 120 of Optiray 320, CT angiogram of the head and neck was performed from the aortic arch to the vertex. Images are reviewed in the axial, sagittal, and coronal planes. 3-D MIPS images are created and assessed. IV contrast was administered without complication. All measurements were calculated based on NASCET criteria. A dose lowering technique was utilized adhering to the principles of ALARA. CT DOSE: 1089.01 mGy.cm FINDINGS: Brain parenchyma: There is age-related involutional change noting minimal microangiopathic disease. There is no hemorrhage, mass effect, or evidence of acute territorial ischemia by CT criteria. There is no evidence of enhancing mass lesion on the angiogram phase images. The ventricles, sulci, and cisterns are prominent secondary to involutional change. Hernandez-white matter differentiation is preserved. No extra-axial fluid collection is seen. Thoracic aorta: There is atherosclerotic calcification of the thoracic aorta. Visualized portions of the thoracic aorta are normal in caliber. The aortic arch demonstrates standard 3-vessel anatomy. Right carotid arterial system: The right common carotid artery is widely patent, as are the right internal and external carotid arteries. Atherosclerotic plaque is noted in the carotid bulb. Left carotid arterial system: The left common carotid artery is widely patent. There is less than 50% luminal narrowing at the origin of the left internal carotid artery secondary to calcified plaque. The left internal carotid artery is otherwise widely patent. 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 The remainder of the vessels patent. Vertebral arteries: The vertebral arteries are widely patent and codominant. Subclavian arteries: Widely patent bilaterally. Intracranial vasculature: There is atherosclerotic calcification of the cavernous carotid and vertebral arteries. The [place] is developmentally complete. The internal carotid arteries are patent at the skull base, as are the anterior and middle cerebral arteries bilaterally. The ve rtebrobasilar system and posterior cerebral arteries are widely patent. The vertebral arteries are codominant. There is no aneurysm, high-grade stenosis, or focal vessel cut off seen throughout the intracranial circulation. Jugular veins: Patent bilaterally. Dural sinuses: Patent. Lung apices: Midline sternotomy wires are noted. Partially visualized upper lobe lung parenchyma appears clear. Soft tissues: The visualized pharyngeal soft tissues are normal in appearance noting angiographic phase technique. The oropharyngeal airway appears widely patent. There are subcentimeter low-attenuation thyroid nodules. Calcifications are present within both thyroid lobes. The salivary glands are normal in appearance. No cervical lymphadenopathy is seen. There are scattered calcified tonsilliths. Skeletal structures: The skeletal structures are osteopenic. The calvarium appears intact. The cervical spine is maintained noting multilevel spondylosis. No lytic or blastic lesion is seen. Orbits: The bony orbits are intact. Orbital contents are normal in appearance noting bilateral ocular lens implants. Sinuses and mastoids: There is trace mucosal thickening within the maxillary antra. The remaining paranasal sinuses are clear. The mastoid air cells are well pneumatized. IMPRESSION: 1. There is no hemorrhage, mass effect, or evidence of acute territorial ischemia by CT criteria. 2. Unremarkable CT angiogram of the brain. 3. There is less than 50% stenosis at the origin of the left internal carotid artery secondary to soft plaque. 4. There is high-grade stenosis at the origin of the left external carotid artery. 5. Otherwise unremarkable CT angiogram of the neck. Electronically signed by: Abdoul Shakns M.D. 05/09/2019 1:49 PM Dictated: 05/09/19 1339 Transcribed: 05/09/19 1339 [facility], [place] [phone] CT Scan Report Patient: JAKE WINCHESTER Admit Date: 05/09/19 MR#: [id number] Address1: Tamika [facility] Acct ID:[id number] Address2: Date: [address] [facility] Zip: [place] [address] Age: 88 Location: ED Sex: F Room/Bed: Att Phy: Diagnosis: UTI Anusha Phy: Jez Swain D.O. Service Date: 05/09/19 Fam Phy: Interpreting Phy: Abdoul Shanks MD Admit Phy: Ordering Phy: Lawson Shook M.D. cc: ~ UNENHANCED CT OF THE BRAIN; CT ANGIOGRAM OF THE BRAIN; CT ANGIOGRAM OF THE NECK CLINICAL HISTORY: Aphasia. COMPARISON STUDY: CT of the brain dated 11/28/2017. CT angiogram of the head and neck dated 11/29/2017. TECHNIQUE: Unenhanced axial CT scan of the brain is performed. Subsequently, following the IV administration of 120 of Optiray 320, CT angiogram of the head and neck was performed from the aortic arch to the vertex. Images are reviewed in the axial, sagittal, and coronal planes. 3-D MIPS images are created and assessed. IV contrast was administered without complication. All measurements were calculated based on NASCET criteria. A dose lowering technique was utilized adhering to the principles of ALARA. CT DOSE: 1089.01 mGy.cm FINDINGS: Brain parenchyma: There is age-related involutional change noting minimal microangiopathic disease. There is no hemorrhage, mass effect, or evidence of acute territorial ischemia by CT criteria. There is no evidence of enhancing mass lesion on the angiogram phase images. The ventricles, sulci, and cisterns are prominent secondary to involutional change. Hernandez-white matter differentiation is preserved. No extra-axial fluid collection is seen. Thoracic aorta: There is atherosclerotic calcification of the thoracic aorta. Visualized portions of the thoracic aorta are normal in caliber. The aortic arch demonstrates standard 3-vessel anatomy. Right carotid arterial system: The right common carotid artery is widely patent, as are the right internal and external carotid arteries. Atherosclerotic plaque is noted in the carotid bulb. Left carotid arterial system: The left common carotid artery is widely patent. There is less than 50% luminal narrowing at the origin of the left internal carotid artery secondary to calcified plaque. The left internal carotid artery is otherwise widely patent. 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 The remainder of the vessels patent. Vertebral arteries: The vertebral arteries are widely patent and codominant. Subclavian arteries: Widely patent bilaterally. Intracranial vasculature: There is atherosclerotic calcification of the cavernous carotid and vertebral arteries. The [place] is developmentally complete. The internal carotid arteries are patent at the skull base, as are the anterior and middle cerebral arteries bilaterally. The vertebrobasilar system and posterior cerebral arteries are widely patent. The vertebral arteries are codominant. There is no aneurysm, high-grade stenosis, or focal vessel cut off seen throughout the intracranial circulation. Jugular veins: Patent bilaterally. Dural sinuses: Patent. Lung apices: Midline sternotomy wires are noted. Partially visualized upper lobe lung parenchyma appears clear. Soft tissues: The visualized pharyngeal soft tissues are normal in appearance noting angiographic phase technique. The oropharyngeal airway appears widely patent. There are subcentimeter low-attenuation thyroid nodules. Calcifications are present within both thyroid lobes. The salivary glands are normal in appearance. No cervical lymphadenopathy is seen. There are scattered calcified tonsilliths. Skeletal structures: The skeletal structures are osteopenic. The calvarium appears intact. The cervical spine is maintained noting multilevel spondylosis. No lytic or blastic lesion is seen. Orbits: The bony orbits are intact. Orbital contents are normal in appearance noting bilateral ocular lens implants. Sinuses and mastoids: There is trace mucosal thickening within the maxillary antra. The remaining paranasal sinuses are clear. The mastoid air cells are well pneumatized. IMPRESSION: 1. There is no hemorrhage, mass effect, or evidence of acute territorial ischemia by CT criteria. 2. Unremarkable CT angiogram of the brain. 3. There is less than 50% stenosis at the origin of the left internal carotid artery secondary to soft plaque. 4. There is high-grade stenosis at the origin of the left external carotid artery. 5. Otherwise unremarkable CT angiogram of the neck. Electronically signed by: Abdoul Shanks M.D. 05/09/2019 1:49 PM Dictated: 05/09/19 1339 Transcribed: 05/09/19 1332 Hospital Course (1) UTI (urinary tract infection): Patient is an 88 year old female with PMHx DM2, S/P CABGx4, HLD, Spinal Stenosis, presented with chief complaint of aphasia similar to past TIAs. She was admitted for stroke work-up which included CTA of the head and neck, MRI. Imaging was not significant for acute or subacute stroke. Discharged with instructions to continue plavix and atorvastatin. She was also treated for a UTIreceived dose of the Rocephin and was discharged home on Macrobid 100 mg twice daily. TIA/Aphasia - Similar to past symptoms, resolved by morning rounds, CTA neck/head and MRI negative for acute or subacute findings - Patient shown to have L internal Carotid stenosis, <50%--consider vascular surgery follow up - Continue with risk factor management- BP control, HLD rx. Continue Plavix and Atorvastatin Dysuria/UTI - Received Rocephin, dc'ed with Macrobid x 5days, follow cultures, tailor abx accordingly Diabetes -Metformin held in context of IV contrast, can resume at discharge S/P CABGx4/HLD -Continue home Plavix 75mg QD, -Continue Atorvastatin 40mg QHS -Continue Lisinopril Spinal Stenosis of Lumbar Region -Patient states this has been a chronic ongoing issue. -Recently taken off of Gabapentin -Currently stable. (2) Aphasia: (3) Diabetes: (4) S/P CABG x 4: (5) HLD (hyperlipidemia): (6) Spinal stenosis of lumbar region: Total Time Total Time Spent Total Time Spent (In Minutes): greater than 30 minutes Total Time Includes: Examination of the Patient, Discharge Planning, Medication Reconciliation and Communication With Other Providers Discharge Plan Discharge Items Patient Disposition: Home - Self-Care Reason For Visit: UTI,STROKE LIKE SYMPTOMS Discharge Diagnosis: TIA Condition on Discharge: Good Activity: Resume your previous activity Non-emergency contact: Primary Care Provider Call non-emergency contact if: your symptoms worsen Follow-up/Referrals: Jez Swain, [Primary Care Provider] - 05/13/19 10:30 am (Please, follow up with Dr. Swain on ThursdayMay 13 at 10:30 am. *If you need to change this appointment, call the office at [phone].) Diet: Heart Healthy Addtl Attending Provider Instructions: You were found to have symptoms concerning for a TIA (see the information below for more information). Fortunately, the imaging of your brain did not show signs concerning for a stroke. We would like you to continue with your current medical regimen. We recommend that you follow up with your PCP in the next 5-7 business days. We are also sending you home with an antibiotic for the UTI, Macrobid 100mg BID. What causes a TIA? Just like a stroke, a TIA can happen when the blood supply to part of the brain is cut off for a short time. This can happen if a blood clot blocks the flow of blood through an artery in the brain and then dissolves or moves away. It can also happen if one of the small arteries in the brain begins to close off from the effects of high blood pressure. We are also sending you home with a medication for a UTI. You can take this medication twice daily for the next 5 days. It's called Macrobid. How can you tell if someone is having a TIA? The symptoms of a TIA are the same as the symptoms of a stroke. There is an easy way to remember the signs of a stroke. Just think of the word "FAST" (figure 1). Each letter in the word stands for 1 of the signs you should watch for: Face Does the person's face look uneven or droop on 1 side? Arm Does the person have weakness or numbness in 1 or both arms? Does 1 arm drift down if the person tries to hold both arms out? Speech Is the person having trouble speaking? Does his or her speech sound strange? Time If you notice any of these stroke signs, even if they go away, call for an ambulance (in the [place] and [place], dial [id number]). You need to act FAST. The sooner treatment begins, the better the chances of recovery. In the hospital, doctors can do tests to look for problems in the brain, blood vessels, and heart. This can help them choose the right treatment. What is the risk of stroke after TIA? A person who has had a TIA is at high risk of having a stroke. This risk is highest in the first few days to weeks after the TIA. That is why it is so important to get medical attention right away if you think you (or someone else) might have had a TIA. How is a TIA treated? TIAs are not usually treated directly. Instead, treatments are directed at reducing the risk that a person will go on to have a full-blown stroke. To lower your risk of stroke, you should: Take your medicines exactly as directed. Medicines that are especially important in preventing strokes include: Medicines to lower blood pressure Medicines called statins, which lower cholesterol Medicines to prevent blood clots, such aspirin or blood thinners Medicines that help to keep your blood sugar as close to normal as possible (if you have diabetes) Make lifestyle changes: Stop smoking, if you smoke Get regular exercise (if your doctor says it's safe) for at least 30 minutes a day on most days of the week Lose weight, if you are overweight Eat a diet rich in fruits, vegetables, and low-fat dairy products, and low in meats, sweets, and refined grains (such as white bread or white rice) Eat less salt (sodium) Limit the amount of alcohol you drink -If you are a woman, do not drink more than 1 drink a day -If you are a man, do not drink more than 2 drinks a day Another way to prevent strokes is to have surgery to reopen clogged arteries in the neck. This surgery is appropriate for only a small group of people. Pending Studies at Discharge: Yes Studies:: Urine culture Stand-Alone Forms: My [facility] Medications and DC Order Prescriptions: New nitrofurantoin monohyd/m-cryst [Macrobid] 100 mg capsule 100 mg PO BID 5 Days Qty: 10 RF: 0 Continued clopidogrel 75 mg tablet 75 mg PO HS RF: 0 insulin glargine 100 unit/mL solution 18 units subcut HS Qty: 2 RF: 0 atorvastatin 40 mg tablet 40 mg PO HS Qty: 90 RF: 0 multivitamin with minerals [Multiple Vitamin-Minerals] tablet 1 tab PO QAM RF: 0 lisinopril 5 mg tablet 5 mg PO QAM RF: 0 insulin syringe-needle U-100 [BD Insulin Syringe Ultra-Fine] 0.5 mL 31 gauge x 5/16" syringe .ROUTE .MEDSUPPLY Qty: 10 RF: 0 insulin lispro 100 unit/mL insulin pen 6 units subcut DAILY@1200,1800 Qty: 1 RF: 0 OneTouch Ultra Blue Test Strip strip .ROUTE .MEDSUPPLY Qty: 10 RF: 0 pen needle, diabetic [ReliOn Pen [place]] 32 gauge x 5/32" needle .ROUTE .MEDSUPPLY Qty: 10 RF: 0 Discharge Orders: Discharge Order (Routine); Ordered 05/10/19 Ordered By: Adalid Michele Admission Data Admit Date/Time: 05/09/19 18:44 Attending Provider: Mimi Waldron Admit Provider: Silvia Escalera Primary Care Provider: Jez Swain Other Providers: Silvia Escalera Other Interventions: Discharge Summary Assessment (RN) Last Done: 05/10/19 17:10 DC Date/Time DO NOT enter until pt leaves facility: 05/10/19 17:23 Supervising Physician Co-Signing Physician Notes Resident Physician Supervision Note: I independently interviewed and examined the patient and verified the mac history and physical, reviewed labs and image studies, discussed the case with the resident Dr. Michele and agree with the findings and care plan. Resident Activity Tracking Resident Involvement: Resident Care Provided Care Provided: Adult Hospital Medicine
== END 2019-05-10 17:23 | disposition home or self-care (01) ==
LOC: ED 11:10 → 2S 11:10 → SUATTDRO 18:44 → 2S 20:30

== ENCOUNTER 2019-09-05 17:17 | Inpatient (IN) ==
--- NOTE | 2019-09-05 17:30 | CT Scan Report ---
CT head/brain wo con CLINICAL HISTORY: 88 years-old Female presenting with Stroke Alert. TECHNIQUE: Multidetector CT imaging of the head was performed without the use of intravenous contrast . IV contrast: None. One or more dose lowering techniques were used consistent with the principles of ALARA (as low as reasonably achievable), including automatic exposure control, mA or kV adjustment t o individual patient size, and/or use of iterative reconstruction. COMPARISON: 08/05/2019. CT DOSE (mGy.cm): The estimated cumulative dose is 537.48 mGy.cm. 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 Proportional ventricular and sulcal prominence, likely age-related parenchymal volume loss. No hemorr real. Brain parenchyma normal in appearance with preserved veras-white differentiation. No acute clark torial infarct. No mass effect or midline shift. No extra-axial fluid collection. Paranasal sinuses a nd mastoid air cells clear. Calvarium intact. IMPRESSION: 1. No acute intracranial abnormality. These findings were discussed with charge nurse Tierney by Dr. Chou on 09/05/2019 5:27 PM. ACT 112: Negative or not required by law. Electronically signed by: Milan Chou M.D. 09/05/2019 5:28 PM
[2019-09-05 17:55] LABS: Hematocrit (blood only) 38.1 % (37-47); Hemoglobin 12.6 g/dL (12.0-16.0); Mean Corpuscular Hemoglobin 29.7 pg (25-34); Mean Corpuscular Hgb Conc 33.1 g/dL (32-36); Mean Corpuscular Volume 89.9 fL (80-100); Mean Platelet Volume 11.1 fL (7.4-10.4); Platelet Count 148 K/uL (130-400); RDW Coefficient of Variation 13.6 % (11.5-14.5); RDW Standard Deviation 44.7 fL (36.4-46.3); Red Blood Count 4.24 M/uL (4.2-5.4); White Blood Count 7.87 K/uL (4.8-10.8)
[2019-09-05] MEDS ORDERED: OPTIRAY 320 125ml IV PRN (17:57)
[2019-09-05 18:05] LABS: Partial Thromboplastin Time 26.2 Seconds (21.0-31.0); Prothrombin Time 10.1 Seconds (9.0-12.0)
--- NOTE | 2019-09-05 18:12 | CT Scan Report ---
CT angio head w con HISTORY: cva TECHNIQUE: Multiaxial CT angiography of the head was performed IV contrast: 120 cc Maximum intensi ty projection images were also obtained. A dose lowering technique was utilized adhering to the prin ciples of LANI. COMPARISON: None. FINDINGS: There is no mass, hematoma, midline shift, or acute infarct. 70% stenosis origin right post erior cerebral artery. Mild compensatory flow from the right posterior communicator. Mild scattered plaque formation throughout the intracranial vessels. No additional significant stenot ic changes present. IMPRESSION: 1. 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 2.. Compensatory and/or augmentation of flow via a patent right posterior communicating vessel. 3. Minimal scattered plaque formation throughout the intracranial vasculature ACT 112: Negative or not required by law. The above report was generated using voice recognition software. It may contain grammatical, syntax or spelling errors. Electronically signed by: Irving Bashir M.D. 09/05/2019 6:10 PM
--- NOTE | 2019-09-05 18:16 | CT Scan Report ---
CT angio neck with con HISTORY: Mental status change cva TECHNIQUE: Multiaxial CT angiography of the neck was performed 100 cc IV contrast: None. All measu rements were calculated based on NASCET criteria. Maximum intensity projection images were also obta ined. A dose lowering technique was utilized adhering to the principles of ALARA. COMPARISON STUDY: 05/09/2019 FINDINGS: The aortic arch and proximal great vessels are widely patent. The vertebral basilar system is considered unremarkable. Moderate plaque formation at the carotid siphons. 70% stenosis origin le ft internal carotid artery. 80% stenosis origin left external carotid artery. Plaque formation right bifurcation with no significant stenosis. 1. IMPRESSION: 1. Normal vertebral basilar system. 2. 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 3. 80% stenosis origin left external carotid artery. 4. These findings are similar to the prior study dated 05/09/2019 ACT 112: Negative or not required by law. The above report was generated using voice recognition software. It may contain grammatical, syntax or spelling errors. Electronically signed by: Irving Bashir M.D. 09/05/2019 6:15 PM
[2019-09-05 18:19] LABS: Alanine Aminotransferase 31 U/L (12-78); Albumin Level 3.7 gm/dl (3.4-5.0); Aspartate Aminotransferase 27 U/L (15-37); BUN Creatinine Ratio 26.5 (10-20); Blood Urea Nitrogen 32 mg/dl (7-18); Calcium 9.7 mg/dl (8.5-10.1); Carbon Dioxide 26 mmol/L (21-32); Chloride 109 mmol/L (98-107); Est GFR (African American) 46.3; Est GFR (Non-African American) 39.9; Glucose 180 mg/dl (70-99); Potassium 4.7 mmol/L (3.5-5.1); Sodium 139 mmol/L (136-145)
--- NOTE | 2019-09-05 18:21 | XRay Report ---
XR chest 1V portable CLINICAL HISTORY: stroke alert mental status change COMPARISON STUDY: 08/07/2019 FINDINGS: The bones soft tissues and hemidiaphragms are normal. The cardiomediastinal silhouette is n ormal. The lungs are clear. The pulmonary vasculature is normal. IMPRESSION: Negative chest. ACT 112: Negative or not required by law. The above report was generated using voice recognition software. It may contain grammatical, syntax or spelling errors. Electronically signed by: Irving Bashir M.D. 09/05/2019 6:20 PM
[2019-09-05 18:22] LABS: Alkaline Phosphatase 94 U/L (45-117); Bilirubin,Total 0.6 mg/dl (0.2-1); Globulin 3.6 gm/dl (2.5-4.0); Total Protein 7.3 gm/dl (6.4-8.2)
[2019-09-05] MEDS ORDERED: LABETALOL HCL IV 5 MG/ML 20ML IV STA ×2 (18:33→19:28)
[2019-09-05] MEDS: MAGNESIUM SULFATE / D5W 1 GM/100 ML BAG IV SCH ×2 (18:39→19:40)
[2019-09-05 18:50] LABS: Appearance Urine Clear (Clear); Bacteria Urine Automated Negative (Negative); Bilirubin Urine Negative (Negative); Blood Urine Trace (Negative); Color Urine Yellow; Epithelial Cell Urine Auto >30 /lpf (0-5); Glucose Urine UA Negative (Negative); Ketones Urine Negative (Negative); Leukocyte Esterase Urine 1+ (Negative); Nitrite Urine Negative (Negative); Protein Urine Negative (Negative); RBC Urine Automated 0-4 /hpf (0-4); Specific Gravity Urine 1.029 (1.000-1.030); Urobilinogen Urine Negative (Negative)
[2019-09-05] MEDS ORDERED: ACETAMINOPHEN 65 ML IV ONE ×2 (19:31→20:21)
--- NOTE | 2019-09-05 19:59 | Emergency Department Note ---
Entered by Nicolasa Sanders acting as a scribe for Fred Welsh DO History of Present Illness General Chief complaint: Stroke Alert Stated complaint: STROKE ALERT Source: EMS Mode of arrival: EMS Limitations: other (aphasia) History of Present Illness Provider complaint: Stroke Onset (ago): hour(s) (today) Location: head Severity: similar to prior episodes (UTI) Pain Consistency: + other (episode) Quality: + other (stoke) Associated symptoms: + other (Additional symptoms: expressive aphasia, dimi nished paper maker strength on the right) The patient is an 88 year old female with a history of atrial fibrillation, CVA, TIA, diabetes, hyperlipidemia, and CABG x 4 who presents to the Emergency Room with complaints of an episode of a stroke starting today. Per EMS, the patient pushed her alarm button at 1630 today and had difficulty expressing her problem. Upon EMS arrival, the patient reportedly had expressive aphasia and slightly diminished paper maker strength on the right. Per [id number], the patient has experienced a few similar episodes over the past couple of months and has been diagnosed with a UTI. She notes that the patient's aphasia has previously resolved as soon as she was administered IV fluids. She explains that the patient lives by herself and that she is unsure when her last known well time was. She recalls that the patient acted normally while she was with family last night but that when her mother called the patient around 1610 today, the patient was unable to form words. She mentions that the patient normally goes to water aerobics with a friend every Thursday morning, so she predicts she might find out more information if she calls this friend to see if the patient was well this morning. Upon calling this friend, the daughter in law reports that the patient went to water aerobics this morning, so her last known well was 1030 today. HPI limited secondary to aphasia. Home Medications Home Medications Medication Instructions Recorded Confirmed Type atorvastatin 40 mg tablet 40 mg PO HS #90 tab 05/03/19 09/05/19 History blood sugar diagnostic #10 ea 05/03/19 05/09/19 History clopidogrel 75 mg tablet 75 mg PO HS tab 05/03/19 09/05/19 History insulin glargine 100 unit/mL 18 units SUBCUT HS #2 ml 05/03/19 09/05/19 History subcutaneous solution insulin syringe-needle U-100 0.5 #10 ea 05/03/19 05/09/19 History mL 31 gauge x /16" lisinopril 5 mg tablet 5 mg PO QAM tab 05/03/19 09/05/19 History multivitamin with minerals 1 tab PO QAM tab 05/03/19 09/05/19 History pen needle, diabetic 32 gauge x #10 ea 05/03/19 05/09/19 History 5/32" acetaminophen [Tylenol] 325 mg PO Q6H PRN 08/05/19 09/05/19 History aspirin 325 mg PO BID PRN 08/07/19 09/05/19 History insulin lispro [Humalog KwikPen 6 unit SUBCUT BIDM 08/07/19 09/05/19 History Insulin] Allergies Allergy/AdvReac Type Severity Reaction Status Date / Time No Known Allergies Allergy Verified 09/05/19 19:05 Past Med/Surg History Medical History Aphasia Atrial fibrillation, controlled (Inactive) CVA (cerebral vascular accident) (Inactive) Diabetes (Chronic) HLD (hyperlipidemia) TIA (transient ischemic attack) (Inactive) UTI (urinary tract infection) Surgical History S/P CABG x 4 (Resolved) Family History Sister Diabetes Dyslipidemia Sister Dyslipidemia Brother Heart disease Father Cancer Mother Diabetes Other No pertinent family history in first degree relatives Social History Preferred Language: Wolof Communication Ability: Effective Learning Disabilities Specialist Required: No Beliefs That Will Affect Care: None marital status: / Current Living Situation: Alone Feels Safe at Home: Yes Smoking Status: Unknown if ever smoked Hx Alcohol Use: No Hx Substance Use: No Review of Systems Other (Limited secondary to aphasia) Physical Exam Vital Signs Vital Signs - 24 hr 09/05/19 17:20 09/05/19 18:07 09/05/19 18:28 Temperature 97.9 F Temperature Source Oral Pulse Rate 63 Pulse Rate [Left] 69 59 L Respiratory Rate 20 24 17 Respiratory Effort / Characteristics Non-Labored Spontaneous Non-Labored Spontaneous Non-Labored Spontaneous Respiratory Depth Normal Normal Normal Blood Pressure 174/100 H Blood Pressure [Left Arm] 203/69 H 216/66 H Blood Pressure Mean 124 Blood Pressure Mean [Left Arm] 113 116 Blood Pressure Position Lying Blood Pressure Position [Left Arm] Lying Lying Pulse Oximetry 98 99 100 Oxygen Delivery Method Room Air Room Air Room Air Sepsis Recent Fever Within 48 Hours No Sepsis New/Unexplained Change in Mental Status Yes Sepsis Action Taken by Nursing No Action Required 09/05/19 18:59 09/05/19 19:12 09/05/19 19:31 Temperature Temperature Source Pulse Rate Pulse Rate [Left] 55 L 62 58 L Respiratory Rate 20 20 22 Respiratory Effort / Characteristics Non-Labored Spontaneous Non-Labored Spontaneous Non-Labored Spontaneous Respiratory Depth Normal Normal Blood Pressure Blood Pressure [Left Arm] 204/66 H 215/57 H 186/103 H Blood Pressure Mean Blood Pressure Mean [Left Arm] 112 109 130 Blood Pressure Position Blood Pressure Position [Left Arm] Lying Pulse Oximetry 97 100 100 Oxygen Delivery Method Room Air Room Air Room Air Sepsis Recent Fever Within 48 Hours Sepsis New/Unexplained Change in Mental Status Sepsis Action Taken by Nursing 09/05/19 19:50 Temperature Temperature Source Pulse Rate Pulse Rate [Left] 74 Respiratory Rate 24 Respiratory Effort / Characteristics Respiratory Depth Blood Pressure Blood Pressure [Left Arm] 189/73 H Blood Pressure Mean Blood Pressure Mean [Left Arm] 111 Blood Pressure Position Blood Pressure Position [Left Arm] Pulse Oximetry 98 Oxygen Delivery Method Room Air Sepsis Recent Fever Within 48 Hours Sepsis New/Unexplained Change in Mental Status Sepsis Action Taken by Nursing VITAL SIGNS: were reviewed as above. GENERAL:Non-toxic in appearance. SKIN: Warm dry and pink. HEAD: Normocephalic and atraumatic. OROPHARYNX: Is clear and moist NECK: Supple without lymphadenopathy or meningismus. LUNGS: clear. HEART: Regular rate and rhythm. ABDOMEN: Soft and nontender. EXTREMITIES: Warm and well perfused. NEUROLOGICALLY: Awake and alert. Unable to determine orientation. Cranial nerves 2-12 are intact. There is no pronator drift. There is no nystagmus. There is no facial droop. Vision is grossly normal. Expressive and receptive aphasia. Does not follow verbal commands but does follow some visual commands. Moves all 4 extremities with normal strength. MUSCULOSKELETAL: Good muscle tone. No evidence of trauma. Course Course 170: I took the command call for the patient. She will be taken straight to CT when she arrives. 172: I reviewed the patient's case with Dr. Briggs - [facility]. 1728: The patient was evaluated in room B1, and a complete history and physical examination were performed. 1820: I spoke to Dr. Briggs again and he recommended that the patient be admitted here. He suggested giving the patient IV magnesium and keeping her blood pressure around 160/80. 1838: I reviewed the patient's case with Dr. Turner - [facility]. Dr. Turner will evaluate the patient for further management. Consultations Consultation #1: I reviewed the patient's case with Dr. Briggs - [facility]. Time: 17:24 Consultation #2: I spoke to Dr. Briggs again and he recommended that the patient be admitted here. He suggested giving the patient IV magnesium and keeping her blood pressure around 160/80. Time: 18:20 Consultation #3: I [facility] will evaluate the patient for further management. Time: 18:38 Administered Medications Magnesium Sulfate/Dextrose (Magnesium Sulfate / D5w) 1 gm in 100 mls @ 100 mls/hr IV Q1H ALEX Stop: 09/05/19 20:29 Last Admin: 09/05/19 19:40 Dose: 100 mls/hr Documented by: [id number] Infusion: 09/05/19 19:40 Dose: 0 mls/hr Documented by: [id number] Admin: 09/05/19 18:39 Dose: 100 mls/hr Documented by: [id number] Ioversol (Optiray 320 125ml) 116 ml IV ONCE PRN PRN Reason: Interaction Checking Stop: 09/09/19 17:56 Last Admin: 09/05/19 17:57 Dose: 116 ml Documented by: [id number] Discontinued Medications Acetaminophen (Ofirmev) 65 mls @ 200 mls/hr IV NOW ONE; Protocol Stop: 09/05/19 19:50 Last Admin: 09/05/19 19:52 Dose: 200 mls/hr Documented by: [id number] Labetalol HCl (Normodyne) 10 mg IV NOW STA Stop: 09/05/19 18:34 Last Admin: 09/05/19 18:39 Dose: 10 mg Documented by: [id number] Cosigned by: [id number] Labetalol HCl (Normodyne) 10 mg IV NOW STA Stop: 09/05/19 19:29 Last Admin: 09/05/19 19:38 Dose: 10 mg Documented by: [id number] Cosigned by: [id number] Critical Care Time Critical Care Time: Yes Total Critical Care Time: 35 I have personally spent 35 minutes of critical care time in the direct management of this patient. This includes bedside care, interpretation of diagnostic studies, and testing, discussion with consultants, patient, and family members, and other required patient management activities. This 35 minutes is in excess of all separately billable procedures. Medical Decision Making Differential Diagnosis Differential diagnosis: Etiologies such as metabolic, infection, hypo/hyperglycemia, electrolyte abnormalities, cardiac sources, intracerebral event, toxicologic, neurologic, as well as others were entertained. Medical Records Attestation: I reviewed the patient's medical records. Home Medications Current Medication List: was personally reviewed by me Laboratory Data Attestation: I reviewed the patient's lab results. Result diagrams: 09/05/19 17:42 09/05/19 17:42 Lab Results 09/05/19 09/05/19 09/05/19 Range/Units 17:31 17:42 17:42 WBC 7.87 (4.8-10.8) K/uL RBC 4.24 (4.2-5.4) M/uL Hgb 12.6 (12.0-16.0) g/dL Hct 38.1 (37-47) % MCV 89.9 (80-100) fL MCH 29.7 (25-34) pg MCHC 33.1 (32-36) g/dL RDW Std Deviation 44.7 (36.4-46.3) fL RDW Coeff of [place] 13.6 (11.5-14.5) % Plt Count 148 (130-400) K/uL MPV 11.1 H (7.4-10.4) fL PT 10.1 (9.0-12.0) Seconds INR 1.0 (0.9-1.1) APTT 26.2 (21.0-31.0) Seconds PTT Ratio 1.0 Sodium (136-145) mmol/L Potassium (3.5-5.1) mmol/L Chloride (98-107) mmol/L Carbon Dioxide (21-32) mmol/L Anion Gap (3-11) BUN (7-18) mg/dl Creatinine (0.6-1.2) mg/dl POC Creatinine (0.6-1.3) mg/dl Est Cr Clr Drug Dosing Est GFR ( Amer) Est GFR (Non-Af Amer) BUN/Creatinine Ratio (10-20) Glucose (70-99) mg/dl POC Glucose 165 H (70-99) mg/dl Calcium (8.5-10.1) mg/dl Magnesium (1.8-2.4) mg/dl Total Bilirubin (0.2-1) mg/dl AST (15-37) U/L ALT (12-78) U/L Alkaline Phosphatase (45-117) U/L Total Protein (6.4-8.2) gm/dl Albumin (3.4-5.0) gm/dl Globulin (2.5-4.0) gm/dl Albumin/Globulin Ratio (0.9-2) Urine Color Urine Appearance (Clear) Urine pH (4.5-7.5) Ur Specific [place] (1.000-1.030) Urine Protein (Negative) Urine Glucose (UA) (Negative) Urine Ketones (Negative) Urine Blood (Negative) Urine Nitrite (Negative) Urine Bilirubin (Negative) Urine Urobilinogen (Negative) Ur Leukocyte Esterase (Negative) Urine WBC (Auto) (0-5) /hpf Urine RBC (Auto) (0-4) /hpf U Hyaline Cast (Auto) (0-5) /lpf U Epithel Cells (Auto) (0-5) /lpf Urine Bacteria (Auto) (Negative) 09/05/19 09/05/19 09/05/19 Range/Units 17:42 17:47 18:30 WBC (4.8-10.8) K/uL RBC (4.2-5.4) M/uL Hgb (12.0-16.0) g/dL Hct (37-47) % MCV (80-100) fL MCH (25-34) pg MCHC (32-36) g/dL RDW Std Deviation (36.4-46.3) fL RDW Coeff of [place] (11.5-14.5) % Plt Count (130-400) K/uL MPV (7.4-10.4) fL PT (9.0-12.0) Seconds INR (0.9-1.1) APTT (21.0-31.0) Seconds PTT Ratio Sodium 139 (136-145) mmol/L Potassium 4.7 (3.5-5.1) mmol/L Chloride 109 H (98-107) mmol/L Carbon Dioxide 26 (21-32) mmol/L Anion Gap 5.0 (3-11) BUN 32 H (7-18) mg/dl Creatinine 1.21 H (0.6-1.2) mg/dl POC Creatinine 1.3 (0.6-1.3) mg/dl Est Cr Clr Drug Dosing Not Reportable Est GFR ( Amer) 46.3 Est GFR (Non-Af Amer) 39.9 BUN/Creatinine Ratio 26.5 H (10-20) Glucose 180 H (70-99) mg/dl POC Glucose (70-99) mg/dl Calcium 9.7 (8.5-10.1) mg/dl Magnesium 2.0 (1.8-2.4) mg/dl Total Bilirubin 0.6 (0.2-1) mg/dl AST 27 (15-37) U/L ALT 31 (12-78) U/L Alkaline Phosphatase 94 (45-117) U/L Total Protein 7.3 (6.4-8.2) gm/dl Albumin 3.7 (3.4-5.0) gm/dl Globulin 3.6 (2.5-4.0) gm/dl Albumin/Globulin Ratio 1.0 (0.9-2) Urine Color Yellow Urine Appearance Clear (Clear) Urine pH 7.0 (4.5-7.5) Ur Specific [place] 1.029 (1.000-1.030) Urine Protein Negative (Negative) Urine Glucose (UA) Negative (Negative) Urine Ketones Negative (Negative) Urine Blood Trace H (Negative) Urine Nitrite Negative (Negative) Urine Bilirubin Negative (Negative) Urine Urobilinogen Negative (Negative) Ur Leukocyte Esterase 1+ H (Negative) Urine WBC (Auto) 1-5 (0-5) /hpf Urine RBC (Auto) 0-4 (0-4) /hpf U Hyaline Cast (Auto) 1-5 (0-5) /lpf U Epithel Cells (Auto) >30 H (0-5) /lpf Urine Bacteria (Auto) Negative (Negative) Imaging Data Radiologist's Impression: Radiology results as stated below per my review and the radiologist's interpretation: CT head/brain wo con CLINICAL HISTORY: 88 years-old Female presenting with Stroke Alert. TECHNIQUE: Multidetector CT imaging of the head was performed without the use of intravenous contrast. IV contrast: None. One or more dose lowering techniques were used consistent with the principles of ALARA (as low as reasonably achievable), including automatic exposure control, mA or kV adjustment to individual patient size, and/or use of iterative reconstruction. COMPARISON: 08/05/2019. CT DOSE (mGy.cm): The estimated cumulative dose is 537.48 mGy.cm. FINDINGS: Wide Area Network Administrator topogram: Unremarkable. Proportional ventricular and sulcal prominence, likely age-related parenchymal volume loss. No hemorrhage. Brain parenchyma normal in appearance with preserved veras-white differentiation. No acute territorial infarct. No mass effect or midline shift. No extra-axial fluid collection. Paranasal sinuses and mastoid air cells clear. Calvarium intact. IMPRESSION: 1. No acute intracranial abnormality. These findings were discussed with charge nurse Tierney by Dr. Chou on 09/05/2019 5:27 PM. ACT 112: Negative or not required by law. Electronically signed by: Milan Chou M.D. 09/05/2019 5:[address] angio head w con HISTORY: cva TECHNIQUE: Multiaxial CT angiography of the head was performed IV contrast: 120 cc Maximum intensity projection images were also obtained. A dose lowering technique was utilized adhering to the principles of ALARA. COMPARISON: None. FINDINGS: There is no mass, hematoma, midline shift, or acute infarct. 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 Mild compensatory flow from the right posterior communicator. Mild scattered plaque formation throughout the intracranial vessels. No additional significant stenotic changes present. IMPRESSION: 1. 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 2.. Compensatory and/or augmentation of flow via a patent right posterior communicating vessel. 3. Minimal scattered plaque formation throughout the intracranial vasculature ACT 112: Negative or not required by law. The above report was generated using voice recognition software. It may contain grammatical, syntax or spelling errors. Electronically signed by: Irving Bashir M.D. 09/05/2019 6:[address] angio neck with con HISTORY: Mental status change cva TECHNIQUE: Multiaxial CT angiography of the neck was performed 100 cc IV contrast: None. All measurements were calculated based on NASCET criteria. Maximum intensity projection images were also obtained. A dose lowering technique was utilized adhering to the principles of ALARA. COMPARISON STUDY: 05/09/2019 FINDINGS: The aortic arch and proximal great vessels are widely patent. The vertebral basilar system is considered unremarkable. Moderate plaque formation at the carotid siphons. 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 80% stenosis origin left external carotid artery. Plaque formation right bifurcation with no significant stenosis. 1. IMPRESSION: 1. Normal vertebral basilar system. 2. 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 3. 80% stenosis origin left external carotid artery. 4. These findings are similar to the prior study dated 05/09/2019 ACT 112: Negative or not required by law. The above report was generated using voice recognition software. It may contain grammatical, syntax or spelling errors. Electronically signed by: Irving Bashir M.D. 09/05/2019 6:15 PM XR chest 1V portable CLINICAL HISTORY: stroke alert mental status change COMPARISON STUDY: 08/07/2019 FINDINGS: The bones soft tissues and hemidiaphragms are normal. The cardiomediastinal silhouette is normal. The lungs are clear. The pulmonary vasculature is normal. IMPRESSION: Negative chest. ACT 112: Negative or not required by law. The above report was generated using voice recognition software. It may contain grammatical, syntax or spelling errors. Electronically signed by: Irving Bashir M.D. 09/05/2019 6:20 PM ECG Data Attestation: I personally reviewed and interpreted this ECG as follows: Indication: + other (stroke) Rate (beats per minute): 58 Rhythm: + sinus bradycardia ECG Intervals/blocks: + Normal QT-c ECG Findings: no PVCs Blood Pressure Blood Pressure Findings: Elevated blood pressure Blood Pressure Disposition: further management by hospitalist SILVANO Presley This is an 88-year-old female who presents to the ED with a chief complaint of strokelike symptoms. EMS contacted us prior to arrival. A stroke alert was called. The patient went directly to CT. Her initial last known well time was around 1630 hrs. today based on when she pushed the alert button to [facility]. The actual last known well time was 10:30 AM. When the [id number] arrived, she reported that the patient went to a water exercise class around 10:30 AM and a friend had picked her up and dropped her off at home. It was 1030 that she was last known well. The patient has clearly an expressive and receptive aphasia. No obvious focal deficits otherwise recognized on exam. The initial CT scan of the brain did not show bleed. The patient was evaluated by Dr. Briggs from [facility]. I spoke with him on the phone. He did not feel the patient was a candidate for thrombolytics at this time. He did recommend 2 g of magnesium IV as well as blood pressure control. The patient was given labetalol 10 mg IV for blood pressure control. Her blood pressures were running in the 1 90-200 systolic range. He would like her blood pressure to be lowered into the 1 60-80 range. The patient's blood work including a CBC and chemistry panel was unremarkable. Glucose was 180. Chest x-ray was negative for acute disease. EKG showed a sinus bradycardia. CT angiogram of the head and neck was performed as well. This is noted above. I did talk with Dr. Briggs about these tests as well. He did not feel these needed to be addressed in an acute or emergent nature. He did recommend MRI as well as EEG and inpatient evaluation by our neurology service. I spoke with the hospitalist, who will see the patient for further inpatient evaluation and care. Impression & Plan CVA (cerebral vascular accident), Hypertension, Aphasia due to acute stroke Discharge Plan Visit Data Chief Complaint: Stroke Alert Stated Complaint: STROKE ALERT ED Provider: Fred Welsh Discharge Problem: CVA (cerebral vascular accident), Hypertension, Aphasia due to acute stroke Patient Disposition: Admitted As Inpatient Forms Stand Alone Forms: My [facility] Prescriptions Prescriptions: No Action clopidogrel 75 mg tablet 75 mg PO HS RF: 0 Lantus U-100 Insulin 100 unit/mL solution 18 units subcut HS Qty: 2 RF: 0 atorvastatin 40 mg tablet 40 mg PO HS Qty: 90 RF: 0 multivitamin with minerals [Multiple Vitamin-Minerals] tablet 1 tab PO QAM RF: 0 lisinopril 5 mg tablet 5 mg PO QAM RF: 0 (DME) insulin syringe-needle U-100 [BD Insulin Syringe Ultra-Fine] 0.5 mL 31 gauge x 5/16" syringe See Dose Instructions .ROUTE .MEDSUPPLY Qty: 10 RF: 0 (DME) OneTouch Ultra Blue Test Strip strip See Dose Instructions .ROUTE .MEDSUPPLY Qty: 10 RF: 0 (DME) pen needle, diabetic [ReliOn Pen [place]] 32 gauge x 5/32" needle See Dose Instructions .ROUTE .MEDSUPPLY Qty: 10 RF: 0 acetaminophen [Tylenol] 325 mg Tablet 325 mg PO Q6H PRN (Reason: Pain) RF: 0 aspirin 325 mg Tablet 325 mg PO BID PRN (Reason: Headache) RF: 0 insulin lispro [Humalog KwikPen Insulin] 100 unit/mL insulin pen 6 unit subcut BIDM RF: 0 Referrals Referrals: Jze Swain DO [Primary Care Provider] - Discharge Problem: CVA (cerebral vascular accident) Qualifiers: CVA mechanism: unspecified Qualified Code(s): I63.9 - Cerebral infarction, unspecified Hypertension Qualifiers: Hypertension type: unspecified Qualified Code(s): I10 - Essential (primary) hypertension The scribe's documentation has been prepared under my direction and personally reviewed by me in its entirety. I confirm that the note above accurately reflects all work, treatment, procedures, and medical decision making performed by me.
--- NOTE | 2019-09-05 20:12 | History & Physical Report ---
Date of Service September 05, 2019 Assessment & Plan (1) Dysphasia due to recent stroke: Admit to PCU on telemetry Follow the stroke pathway without TPA Patient is not a candidate for the TPA since she was outside of the window and her family did not wanted to pursue any heroic measures. Monitor blood pressure every 4 hours Keep blood pressure with permissive hypertension Continue labetalol as needed for elevated blood pressure systolic 160 and above and diastolic over 90 Continue lisinopril 5 mg p.o. every morning, continue atorvastatin 40 mg p.o. nightly. Neurology consult MRI pending TTE pending Continue aspirin 325 mg p.o. twice daily as needed Continue clopidogrel 75 mg p.o. nightly DVT prophylaxis SCDs and teds until MRI results is available Code DNR/DNI discussed with family Present on Admission?: Yes (2) Hypertensive emergency: Continue monitoring blood pressure closely. Labetalol 10 mg IV every every 4 hours as needed for systolic blood pressure over 160 and diastolic blood pressure over 90 Continue stroke protocol Present on Admission?: Yes (3) Hypertension: As the above, continue home medicine Present on Admission?: Yes (4) UTI (urinary tract infection): Will start empirically ceftriaxone 2 g IV daily. Follow-up with urine cultures Present on Admission?: Yes (5) HLD (hyperlipidemia): Lipid panel pending, continue atorvastatin 40mg p.o. nightly Present on Admission?: Yes (6) Diabetes mellitus type 2 in nonobese: Continue toward two thirds of home insulin. Continue sliding scale insulin. Accu-Cheks before meals and at bedtime. Glycemic control per pharmacy. A1c pending. Present on Admission?: Yes History of Present Illness Chief Complaint: Altered mental status, dysarthria Primary Care Provider: Jez Swain DO The patient is a 88 years old female with past medical history of hypertension, hyperlipidemia, diabetes, CABG x4, who was brought to the emergency room by EMS with a complaint of inability to speak and with generalized weakness. Per her family this is her fifth similar episode of transient ischemic attack attack ve rsus stroke in the past several months. She is also had very elevated blood pressure systolic above 200 and diastolic below 100. ER physician discussed the case with stroke center neurology hydrogenation still operator in [facility] and and he recommended MRI of the brain, continue home medicine clopidogrel, aspirin and atorvastatin and for hypertensive emergency to start labetalol. Patient is poor historian and her speech is difficult to understand. Her family said that patient was usually able to speak very well. Appears that patient understands but cannot express herself properly. Patient words do not make any sense. She has expressive dysphasia. Patient last 12 hours at 10:30 AM when she made a phone call to her asking for help. EKG shows broad sinus bradycardia, with left axis deviation, septal infarct when compared to ECG from this July 2019. Labs WBC is 7.87, hemoglobin 12.6, hematocrit 38.1, platelets 148, PT 10.1, INR 1, sodium 139, potassium 4.7, chloride 109, BUN 32, creatinine 1.21, GFR 39.9, glucose 180, magnesium 2, AST 27, ALT 31, alkaline phosphatase 94, TSH pending. In the ER patient was started on magnesium and she was IV and she was given labetalol for hypertensive emergency. Urine: Trace blood, 1+ leukocyte esterase, over 30 epithelial cells negative for bacteria negative for nitrates. CT of the head shows no acute intracranial abnormality.CTA of the head and neck shows compensatory and or augmentation of flow via patient right posterior communicating vessel. Minimal scattered plaque formation throughout the intracranial vasculature.No acute intracranial abnormality, 80% stenosis of the origin left external carotid artery. These findings were similar to the prior study dated May 09, 2019. Decision was made to admit patient to PCU on telemetry for possible stroke versus TIA with expressive dysphasia and generalized body weakness. Allergies Allergy/AdvReac Type Severity Reaction Status Date / Time No Known Allergies Allergy Verified 09/05/19 19:05 Home Medications Home Medications Medication Instructions Recorded Confirmed Type atorvastatin 40 mg tablet 40 mg PO HS #90 tab 05/03/19 09/05/19 History blood sugar diagnostic #10 ea 05/03/19 05/09/19 History clopidogrel 75 mg tablet 75 mg PO HS tab 05/03/19 09/05/19 History insulin glargine 100 unit/mL 18 units SUBCUT HS #2 ml 05/03/19 09/05/19 History subcutaneous solution insulin syringe-needle U-100 0.5 #10 ea 05/03/19 05/09/19 History mL 31 gauge x 5/16" lisinopril 5 mg tablet 5 mg PO QAM tab 05/03/19 09/05/19 History multivitamin with minerals 1 tab PO QAM tab 05/03/19 09/05/19 History pen needle, diabetic 32 gauge x #10 ea 05/03/19 05/09/19 History " acetaminophen [Tylenol] 325 mg PO Q6H PRN 08/05/19 09/05/19 History aspirin 325 mg PO BID PRN 08/07/19 09/05/19 History insulin lispro [Humalog KwikPen 6 unit SUBCUT BIDM 08/07/19 09/05/19 History Insulin] Past Med/Surg History Medical History Aphasia Atrial fibrillation, controlled (Inactive) CVA (cerebral vascular accident) (Inactive) Diabetes (Chronic) HLD (hyperlipidemia) TIA (transient ischemic attack) (Inactive) UTI (urinary tract infection) Surgical History S/P CABG x 4 (Resolved) Family History Sister Diabetes Dyslipidemia Sister Dyslipidemia Brother Heart disease Father Cancer Mother Diabetes Other No pertinent family history in first degree relatives Social History Preferred Language: Slovak Communication Ability: Effective Ticker Maintainer Required: No Beliefs That Will Affect Care: None marital status: / Current Living Situation: Alone Feels Safe at Home: Yes Smoking Status: Unknown if ever smoked Hx Alcohol Use: No Hx Substance Use: No Review of Systems Review of Systems: All systems reviewed & are unremarkable except as noted in HPI & below Physical Exam Constitutional: WD/WN, vitals as above well developed Eyes: PERRL, conjunctivae normal, anicteric sclerae ENMT: external ear and nose normal, oropharynx normal Neck: trachea midline, no thyromegaly Respiratory: normal respiratory effort, lungs clear to auscultation Cardiovascular: Heart Sounds: normal S1, normal S2 and + murmur Gastrointestinal (Abdomen): normal bowel sounds, soft, nontender, no hepatosplenomegaly Musculoskeletal: Head/Neck/Chest: normocephalic, head atraumatic and neck supple Extremities: + abnormal strength (Strength in upper extremity both left and right 2 of 5, lower extremity 5/5) and + limited ROM of upper extremity Skin: no rashes, warm and dry Neurologic: PERRL, EOMI, accommodation nl, no face palsy, no dysarthria deep tendon reflexes 2+ bilaterally, + focal motor deficit and awake Expressive dysphagia Genitourinary: no vaginal lesions, no adnexal mass Lymphatic: no cervical or axillary lymphadenopathy Results & Data Vital Signs (Past 12 Hours) Vital Signs Temp Pulse Pulse Resp BP BP Pulse Ox 09/05/19 19:12 62 20 215/57 H 100 09/05/19 18:59 55 L 20 204/66 H 97 09/05/19 18:28 59 L 17 216/66 H 100 09/05/19 18:07 69 24 203/69 H 99 09/05/19 17:20 36.6 C 63 20 174/100 H 98 Code Status & VTE Plan Code Status DNR/DNI VTE Prophylaxis Plan VTE Prophylaxis will be ordered: Yes PG Care Time/CCT Total # of Minutes Spent Total Time Spent with Patient: Total time spent is greater than 50% in coordination of care (as documented) at patient's floor/unit and/or counseling patient: (1) Hypertension Hypertension type: unspecified Qualified Code(s): I10 - Essential (primary) hypertension
[2019-09-05] MEDS ORDERED: POLYETHYLENE (MIRALAX) 17 GM PACK PO PRN (20:21)
[2019-09-05] MEDS ORDERED: LABETALOL HCL IV 5 MG/ML 20ML IV PRN (20:21)
[2019-09-05] MEDS ORDERED: ONDANSETRON INJ 2 MG/ML 2 ML VIAL IV PRN (20:21)
[2019-09-05] MEDS ORDERED: SODIUM CHLORIDE 0.9% 1000ML 1,000 ML IV SCH (20:21)
[2019-09-05] MEDS ORDERED: PHARMACIST DISCHARGE MED REC CONSULT PRN (20:21)
[2019-09-05] MEDS ORDERED: MAGNESIUM HYDROXIDE SUSP 30 ML UDC PO PRN (20:21)
[2019-09-05] MEDS ORDERED: ALUMINUM/MAGNESIUM SUSP 30 ML UDC PO PRN (20:21)
[2019-09-05] MEDS ORDERED: ASPIRIN 325 MG ECTAB PO PRN (21:00)
[2019-09-05] MEDS ORDERED: INSULIN GLARGINE SOLOSTAR 100 UNITS/ML 3 ML PEN SC SCH (21:00)
[2019-09-05] MEDS ORDERED: PNEUMOCOCCAL ADMINISTRATION CHARGE ONE (21:01)
[2019-09-05] MEDS ORDERED: PNEUMOCOCCAL POLYSACCHARIDES 25 MCG/0.5 ML VIAL/SYR IM ONE (21:01)
[2019-09-05] MEDS: ATORVASTATIN 40 MG TAB PO SCH (21:18)
[2019-09-05] MEDS: CLOPIDOGREL BISULFATE 75 MG TAB PO SCH (21:19)
[2019-09-05 21:20] LABS: Partial Thromboplastin Ratio 0.9; Partial Thromboplastin Time 25.4 Seconds (21.0-31.0); Prothrombin Time 9.8 Seconds (9.0-12.0)
[2019-09-05] MEDS ORDERED: INSULIN GLARGINE SOLOSTAR 100 UNITS/ML 3 ML PEN SC ONE (21:45)
[2019-09-05] MEDS ORDERED: cefTRIAXone SODIUM 2,000 MG in DEXTROSE 5% 50 ML IV SCH (22:00)
[2019-09-05] MEDS ORDERED: GADOBUTROL 65ML VIAL IV PRN (22:11)
--- NOTE | 2019-09-05 22:17 | Magnetic Resonance Report ---
MR brain wo/w con CLINICAL HISTORY: TIA vs stroke mental status change COMPARISON STUDY: 05/09/2019 TECHNIQUE: Utilizing a 1.5 Myranda magnet and dedicated coil, multiplanar, multiecho imaging of the br ain was performed pre and postcontrast administration. IV administration of 8 mL of Gadavist contras t was uneventful. FINDINGS: Diffusion images show no evidence for an acute ischemic event. Findings of mild age-related chronic small vessel change and atrophy. The sella and parasellar regions are unremarkable. The internal lateral canals are symmetric. Postcontrast images are considered negative for enhancing lesion. IMPRESSION: No acute process. No change from the prior exam. ACT 112: Negative or not required by law. The above report was generated using voice recognition software. It may contain grammatical, syntax or spelling errors. Electronically signed by: Irving Bashir M.D. 09/05/2019 10:15 PM
[2019-09-06 06:26] LABS: Estimated Average Glucose 148 mg/dl; Hemoglobin A1C 6.8 % (4.5-5.6)
[2019-09-06 07:05] LABS: Basophils # (auto) 0.02 K/uL (0-0.2); Basophils % (auto) 0.2 %; Eosinophils # (auto) 0.03 K/uL (0-0.5); Eosinophils % (auto) 0.3 %; Hematocrit (blood only) 35.5 % (37-47); Hemoglobin 11.9 g/dL (12.0-16.0); Immature Granulocytes # (auto) 0.02 K/uL (0.00-0.02); Immature Granulocytes % (auto) 0.2 %; Lymphocytes # (auto) 3.92 K/uL (1.2-3.4); Lymphocytes % (auto) 38.3 %; Mean Corpuscular Hemoglobin 29.8 pg (25-34); Mean Corpuscular Hgb Conc 33.5 g/dL (32-36); Mean Corpuscular Volume 88.8 fL (80-100); Mean Platelet Volume 11.6 fL (7.4-10.4); Monocytes # (auto) 0.63 K/uL (0.11-0.59); Monocytes % (auto) 6.2 %; Neutrophils # (auto) 5.61 K/uL (1.4-6.5); Neutrophils % (auto) 54.8 %; Platelet Count 145 K/uL (130-400); RDW Coefficient of Variation 13.6 % (11.5-14.5); RDW Standard Deviation 44.1 fL (36.4-46.3); White Blood Count 10.23 K/uL (4.8-10.8)
[2019-09-06 07:39] LABS: Calcium 8.7 mg/dl (8.5-10.1); Creatinine Clr Calc Pharmacy 31.1 ml/min; Est GFR (African American) 51.9; Est GFR (Non-African American) 44.8; Potassium 4.5 mmol/L (3.5-5.1)
--- NOTE | 2019-09-06 08:39 | Neurology Consultation ---
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 On exam she has receptive and expressive deficits making this a combined aphasia. Interestingly, she has no other neurologic deficits on examination (no focal findings, meningeal signs, or encephalopathy). I do not think she is confused or has altered mental status. I do not think this is anything to do with a seizure. MRI of the brain did not actually show a stroke which is interesting because this would have to be fairly large, hitting both the expressive (Broca) and receptive (Wernicke) areas. Actually the MRI of the brain looks fairly good for age with only mild chronic cerebral ischemia and atrophy. Patient does have significant left internal carotid artery and right posterior cerebral artery stenosis at 70 percent each. This is despite being on Plavix daily. It has not even been 24 hours yet since her event so this still could be a prolonged TIA (reversible ischemic neurologic deficit-RIND). In addition, this event could be temporal/parietal lobe vasospasm due to significant hypertension. She has had 2 other episodes in the last few months which were very similar but of a lesser duration. Other risk factors for ischemic stroke would be diabetes and her history of dyslipidemia. Recommendations: 1. Add 81 milligram aspirin to the 75 milligram clopidogrel daily. She should probably be on both antiplatelet medications in the short-term. There is no indication for anticoagulation. 2. Control blood pressure as you are doing a me for a mean arterial pressure of 95 to 100. 3. Hemoglobin A1c is 6.8. Try to improve control to get the hemoglobin A1c closer to 6. 4. Continue atorvastatin at 40 milligrams daily. There is no indication for high-dose statins in this patient. 5. Speech therapy consultation. Increase activity and consider PT and OT consultations as well. 6. Echocardiogram is pending. 7. I see no need for additional neurologic testing at this time. I would be happy to follow as an outpatient to 3 weeks after discharge. 8. Social service consult to talk with the daughter. The question is can this patient go home with supervision or needs to be placed. Overall, I spent a total of 100 minutes with this case including review of records, review of MRI films, direct evaluation the patient at bedside, and discussing the case with the patient and her daughter at bedside, RN at bedside, and Dr. Crespo, including differential diagnosis and treatment options. History of Present Illness Reason for Consultation: Patient is an 88-year-old, who I was asked to see the request of Dr. Turner, neurologic consultation regarding acute aphasia. Requesting Physician: Dr. Turner Attending Physician: Tyree Crespo MD History of Present Illness This patient has a history of insulin-dependent diabetes mellitus for many years. She has had hypertension for years also along with dyslipidemia and coronary artery disease. She has diabetic retinopathy and polyneuropathy. There is history of a possible TIA in June of 2016. I 1st saw this patient in November of 2017. She a 60 minute episode of expressive aphasia consistent with a TIA. At that time MRI showed no stroke and angiography reviewed a 50-60 percent stenosis at the proximal left internal carotid artery. She has been on Plavix 75 milligrams daily since. According to the patient's daughter, who was in the room during the interview, the patient had an episode in April of 2019 of inability to speak properly or figure out how to dress herself. She had a urinary tract infection that day and the episode lasted that day only. Next day she was back to baseline. In July of 2019 she had the onset of an inability to speak which lasted 6-8 hours. She did not have urinary tract infection at that time. Patient went to [facility] morning of September 05 around 1030. That was the last time anyone knew she was completely well neurologically. She went back home (lives by herself) and at 4:30 p.m. it was noted that she was not speaking correctly. She arrived at the emergency room at 1720 with a pulse of 63 and regular, respiratory rate 20, blood pressure 174/100, and O2 saturation 98 percent. She was afebrile. She was noted to have expressive and receptive aphasia and was not able to follow commands. Tele-Stroke consultation was performed and she was out of the window for tPA. She was given IV magnesium. Blood pressure was treated and improved. CBC and Chem profile were unremarkable except for a glucose 180 and a mildly elevated BUN. UA looked negative cultures are pending. CT scan of the head showed no acute changes. Chest x-ray was unremarkable. CT angiography of the head and neck revealed a 70 percent stenosis of the right posterior cerebral artery and a 70 percent stenosis of the origin of the left internal carotid artery. Incidentally, the left external carotid artery was 80 percent stenotic. MRI of the brain was obtained and showed mild atrophy and mild nonspecific old small vessel ischemic changes (actually not that significant for her advanced age). There was no evidence of acute stroke and no enhancement with contrast. I reviewed this film. This morning patient's blood pressure is 132/55 and her pulse is in the 60s sinus rhythm. Echocardiogram is pending. Nurse reports no new events overnight and she is still having language difficulties. Triglycerides were 122 includes total cholesterol 97. Allergies Allergy/AdvReac Type Severity Reaction Status Date / Time No Known Allergies Allergy Verified 09/05/19 19:05 Home Medications Home Medications Medication Instructions Recorded Confirmed Type atorvastatin 40 mg tablet 40 mg PO HS #90 tab 05/03/19 09/05/19 History blood sugar diagnostic #10 ea 05/03/19 05/09/19 History clopidogrel 75 mg tablet 75 mg PO HS tab 05/03/19 09/05/19 History insulin glargine 100 unit/mL 18 units SUBCUT HS #2 ml 05/03/19 09/05/19 History subcutaneous solution insulin syringe-needle U-100 0.5 #10 ea 05/03/19 05/09/19 History mL 31 gauge x 5/16" lisinopril 5 mg tablet 5 mg PO QAM tab 05/03/19 09/05/19 History multivitamin with minerals 1 tab PO QAM tab 05/03/19 09/05/19 History pen needle, diabetic 32 gauge x #10 ea 05/03/19 05/09/19 History 5/32" acetaminophen [Tylenol] 325 mg PO Q6H PRN 08/05/19 09/05/19 History aspirin 325 mg PO BID PRN 08/07/19 09/05/19 History insulin lispro [Humalog KwikPen 6 unit SUBCUT BIDM 08/07/19 09/05/19 History Insulin] Patient History Medical History (Updated 09/06/19 @ 08:38 by Mann Medina III, MD) Aphasia Atrial fibrillation, controlled (Inactive) CVA (cerebral vascular accident) (Inactive) Diabetes (Chronic) HLD (hyperlipidemia) TIA (transient ischemic attack) (Inactive) UTI (urinary tract infection) Surgical History S/P CABG x 4 (Resolved) S/P cataract surgery Family History Sister Diabetes Dyslipidemia Sister Dyslipidemia Brother Heart disease Father , age 59 of lung cancer. 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 She cannot answer questions. She does not seem to be in pain or have a headache. Physical Exam Physical Exam: The patient is right-handed. The patient is awake, alert, and attentive. Speech is not fluent or understandable except for single words. She cannot formulate a sentence. She tries to answer questions but some few, disjointed words come out. She seems to have expressive and receptive aphasia problems. She does not have dysarthria as far as I can tell. She will not follow one-step commands verbally. She may imitate me visually on occasion. She is very calm and tries to communicate. She seems to be in a reasonable mood and not in any distress. General appearance and grooming are normal. Because of her aphasia, I cannot assess her memory. The discs are sharp with positive venous pulsations bilaterally. There are no exudates, hemorrhages, or blood vessel changes seen. Pupils are 3 mm bilaterally and reactive to light. Extraocular eye muscles are intact without nystagmus. Visual acuity and visual guthrie seem normal grossly to confrontation. There are no deficits to sensation in the face in all 3 distributions of the fifth cranial nerve bilaterally. Corneal reflexes are positive bilaterally. Facial strength and symmetry was normal bilaterally. Hearing seems normal to whisper and finger rub bilaterally. Palate moves well without asymmetry. There is normal sternocleidomastoid and trapezius (shoulder shrug) strength bilaterally. Tongue is midline with good strength bilaterally. Neck has a full range of motion without discomfort. There are no cervical bruits bilaterally. There are no cranial or ocular bruits. Heart is without murmur. There is a regular rhythm and rate. Cervical, thoracic, and lumbar spine are nontender to palpation. Gait was not tested but stance sitting up in bed was reasonable. With outstretched arms there is no drift. There are no resting, postural, or action tremors. There is no ataxia with finger to nose testing. There is good facility in the hands. No other abnormal involuntary movements are noted. Motor strength is 5/5 diffusely in the arms bilaterally including deltoids, biceps, triceps, brachioradialis, wrist flexors and extensors, furnace keeper, and intrinsic hand muscles. Motor strength is 5/5 diffusely in the legs bilaterally including hip flexors, quadriceps, hamstrings, gastrocnemius, tibialis anterior, tibialis posterior, and Peroneii muscles. Toe extensors are normal and there is good bulk in the extensor digitorum brevis muscles bilaterally. The limbs have good tone without rigidity or spasticity. There is no atrophy noted in the muscles. Muscle bulk is normal, there is no tenderness to palpation, no myotonia to percussion, and no fasciculations seen. Sensory examination is intact to touch and pin throughout all 4 limbs diffusely. Reflexes are 0/4 in the biceps, triceps, brachioradialis, quadriceps, and Achilles tendons bilaterally. There is no clonus bilaterally. Toes are downgoing with plantar stimulation bilaterally. She has good withdrawal and feels the scratch of the reflex hammer on her soles. Peripheral pulses are present and of normal quality distally in all 4 limbs. There is no peripheral edema noted in the limbs. Results & Data Vital Signs (Past 12 Hours) Vital Signs Temp Pulse Pulse Pulse Resp BP Pulse Ox 09/06/19 03:44 36.9 C 62 16 145/66 H 96 09/05/19 23:34 56 L 09/05/19 23:21 36.8 C 62 16 141/50 H 97 09/05/19 20:28 66 Diagnostic Findings MR brain wo/w con CLINICAL HISTORY: TIA vs stroke mental status change COMPARISON STUDY: 05/09/2019 TECHNIQUE: Utilizing a 1.5 Myranda magnet and dedicated coil, multiplanar, multiecho imaging of the brain was performed pre and postcontrast administra tion. IV administration of 8 mL of Gadavist contrast was uneventful. FINDINGS: Diffusion images show no evidence for an acute ischemic event. Findings of mild age-related chronic small vessel change and atrophy. The sella and parasellar regions are unremarkable. The internal lateral canals are symmetric. Postcontrast images are considered negative for enhancing lesion. IMPRESSION: No acute process. No change from the prior exam. ACT 112: Negative or not required by law. The above report was generated using voice recognition software. It may contain grammatical, syntax or spelling errors. Electronically signed by: Irving Bashir M.D. 09/05/2019 10:15 PM PG Care Time/CCT Total # of Minutes Spent Total Time Spent with Patient: Total time spent is greater than 50% in coordination of care (as documented) at patient's floor/unit and/or counseling patient:
[2019-09-06] MEDS: LACTATED RINGER'S 1,000 ML IV SCH ×2 (10:34→21:16)
[2019-09-06] MEDS: ACETAMINOPHEN 325 MG TAB PO PRN ×2 (14:17→21:15)
[2019-09-06] MEDS: lisinopriL 5 MG TAB PO SCH (17:03)
[2019-09-06] MEDS: ASPIRIN 81 MG ECTAB PO SCH (17:03)
[2019-09-06] MEDS: MULTIVITAMIN TAB PO SCH (17:04)
--- NOTE | 2019-09-06 20:53 | Hospitalist Progress Note ---
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 alternative explanation such as vasospasm for ongoing deficit. Will hold lisinopril to avoid further drop in BP during acute phases of CVA. Echo - pending ICA stenosis not felt to be contributory Rx ASA, Plavix, Atorvastatin (pt on plavix prior to admission) (2) Hypertensive emergency: Hold lisinopril as hypertension appears to have been over corrected with labetalol on admission x2 10mg. Labetalol for sBP > 220 Continue to monitor (3) Hypertension: As above (4) HLD (hyperlipidemia): LDL 43, continue atorvastatin 40mg p.o. nightly (5) Diabetes mellitus type 2 in nonobese: Increase lantus 10 units BID. Bolus sliding scale. Aim 110-140. Accu-Cheks before meals and at bedtime. (6) DVT prophylaxis: Lovenox 40 mg daily (7) Discharge planning issues: Continue PT/OT/speech Subjective Patient very lethargic all day. Awakes to voice but unable to have a conversation as currently with marked expressive dysphasia and wrong words coming out making her visibly frustrated. Appears able to move both arms and legs but favoring left side. Daughter in room reports at baseline she does water aerobics and is very active although does have underlying dementia. Review of Systems Review of Systems: Unobtainable due to cognitive status Physical Exam Constitutional: + not well nourished and no acute distress Eyes: PERRL, conjunctivae normal, anicteric sclerae ENMT: external ear and nose normal, oropharynx normal Neck: normal visual inspection and trachea midline Respiratory: normal respiratory effort, lungs clear to auscultation Cardiovascular: RRR, no murmur, no edema Gastrointestinal (Abdomen): normal bowel sounds, soft, nontender, no hepatosplenomegaly Skin: no rashes, warm and dry Neurologic: moves all extremities and awake; no focal motor deficits (d ifficult to assess in current stte but strength grossly appears normal b/l) Speech / Cognition: + abnormal speech, + expressive aphasia (word salad) and + receptive aphasia (follows simple commands L > R) Motor/Sensory: + pronator drift (b/l, unable to truly assess with receptive dysphasia); no tremor Cranial Nerves: PERRL, EOM intact bilaterally, able to rotate head bilaterally and able to elevate shoulders bilaterally Psychiatric: Orientation: alert (wakes to voice); + not oriented x 3 Results & Data Vital Signs (Past 12 Hours) Vital Signs Temp Pulse Resp BP Pulse Ox 09/06/19 19:15 36.8 C 57 L 18 118/68 93 09/06/19 15:18 36.5 C 55 L 18 130/56 L 95 09/06/19 11:11 37.4 C 53 L 19 147/65 H 96 PG Care Time/CCT Total # of Minutes Spent Total Time Spent with Patient: Total time spent is greater than 50% in coordination of care (as documented) at patient's floor/unit and/or counseling patient: Coding Level of Care Code 30059 Subseq Hosp Care Lvl 3 Diagnoses 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
[2019-09-06] MEDS ORDERED: GLUCAGON FOR INJ 1 MG VIAL IM PRN (21:00)
[2019-09-06] MEDS ORDERED: CARBOHYDRATES FOR HYPOGLYCEMIA PO PRN (21:00)
[2019-09-06] MEDS ORDERED: GLUCOSE 10 TABS/TUBE PO PRN (21:00)
[2019-09-06] MEDS ORDERED: GLUCOSE 40% GEL 15 GM TUBE PO PRN (21:00)
[2019-09-06] MEDS ORDERED: DEXTROSE 50% 50 ML SYRINGE IV PRN (21:00)
--- NOTE | 2019-09-06 21:16 | Electrocardiogram Report ---
Test Reason : Blood Pressure : / mmHG Vent. Rate : 058 BPM Atrial Rate : 058 BPM P-R Int : 134 ms QRS Dur : 096 ms QT Int : 438 ms P-R-T Axes : 071 -39 072 degrees QTc Int : 429 ms Poor data quality, interpretation may be adversely affected Sinus bradycardia Left axis deviation Septal infarct (cited on or before 28-NOV-2017) Abnormal ECG When compared with ECG of 07-AUG-2019 14:31, No significant change was found Confirmed by Vishal Sharpe ([id number]) on 09/06/2019 9:15:52 PM Referred By: REFERRED SELF Confirmed By:Vishal Sharpe
[2019-09-06] MEDS: ATORVASTATIN 40 MG TAB PO SCH (21:17)
[2019-09-06] MEDS: CLOPIDOGREL BISULFATE 75 MG TAB PO SCH (21:17)
[2019-09-06] MEDS: INSULIN ASPART 100 UNITS/ML 3 ML PEN SC SCH (21:20)
[2019-09-07 06:15] LABS: Hematocrit (blood only) 30.9 % (37-47); Hemoglobin 10.4 g/dL (12.0-16.0); Mean Corpuscular Hemoglobin 30.1 pg (25-34); Mean Corpuscular Hgb Conc 33.7 g/dL (32-36); Mean Corpuscular Volume 89.3 fL (80-100); Mean Platelet Volume 11.5 fL (7.4-10.4); Platelet Count 129 K/uL (130-400); RDW Coefficient of Variation 13.7 % (11.5-14.5); RDW Standard Deviation 44.7 fL (36.4-46.3); Red Blood Count 3.46 M/uL (4.2-5.4); White Blood Count 7.98 K/uL (4.8-10.8)
[2019-09-07 06:40] LABS: BUN Creatinine Ratio 25.2 (10-20); Calcium 8.2 mg/dl (8.5-10.1); Creatinine Clr Calc Pharmacy 31.7 ml/min; Est GFR (African American) 50.8; Est GFR (Non-African American) 43.8; Potassium 4.2 mmol/L (3.5-5.1)
[2019-09-07 06:42] LABS: ANC (manual) 3.74 K/uL (1.4-6.5); Large Granular Lymph # (manua 2.82 K/uL; Large Granular Lymph % (manual) 35.4 %; Lymphocytes # (manual) 0.77 K/uL (1.2-3.4); Lymphocytes % (manual) 9.7 %; Monocytes # (manual) 0.64 K/uL (0.11-0.59); Neutrophils # (manual) 3.74 K/uL (1.4-6.5); Neutrophils % (manual) 46.9 %; RBC Morphology Unremarkable
[2019-09-07] MEDS: LACTATED RINGER'S 1,000 ML IV SCH ×2 (06:45→14:36)
[2019-09-07] MEDS: INSULIN ASPART 100 UNITS/ML 3 ML PEN SC SCH ×4 (09:04→21:47)
[2019-09-07] MEDS: MULTIVITAMIN TAB PO SCH (09:05)
[2019-09-07] MEDS: ASPIRIN 81 MG ECTAB PO SCH (09:05)
[2019-09-07] MEDS ORDERED: lisinopriL 5 MG TAB PO ONE (20:18)
--- NOTE | 2019-09-07 20:23 | Hospitalist Progress Note ---
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 Although not confirmed on MRI I discussed case with Dr Medina today as patient having profound changes for no MRI changes and if still having symptoms tomorrow will repeat MRI as initial scan may have been too early in process. Possibly this episode was more prolonged due to intial sudden lowering of blood pressure from x2 10 mg labetalol given in quick succession. Her BP appears improved today off of lisinopril. Carotid artery stenosis as below Echo - no LV thrombus Rx ASA, Plavix, Atorvastatin (2) Hypertensive emergency: Continue monitoring blood pressure closely. Labetalol 10 mg IV every every 4 hours as needed for systolic blood pressure over 160 and diastolic blood pressure over 90 Continue stroke protocol (3) Hypertension: As the above, continue home medicine (4) HLD (hyperlipidemia): LDL 43, continue atorvastatin 40mg p.o. nightly (5) Diabetes mellitus type 2 in nonobese: Continue on increased lantus 10 units BID Continue sliding scale insulin. Accu-Cheks before meals and at bedtime. (6) Carotid stenosis, left: Consult vascular surgery as discussed with Dr Medina. Unclear whether this is contributing towards her recurrent events as previous < 50 % when she had similar symptoms. (7) DVT prophylaxis: Lovenox 40 mg daily Subjective Patient appears to be doing better today. Still having trouble with expressive and receptive dysphasia. Unable to tell me the day, month or year or where she is but mainly having trouble just getting the right words out. Simple words such as right, yes and no appear to be more fluent today. Still having some right sided neglect without power loss. Apparently doing better with right sided neglect with physical therapy but still with preference of left side despite being right handed. Much more alert and in the chair today. Review of Systems Review of Systems: All systems reviewed & are unremarkable except as noted in HPI & below Physical Exam Constitutional: WD/WN, vitals as above Eyes: PERRL, conjunctivae normal, anicteric sclerae ENMT: external ear and nose normal, oropharynx normal Neck: normal visual inspection and trachea midline Respiratory: normal respiratory effort, lungs clear to auscultation Cardiovascular: RRR, no murmur, no edema Gastrointestinal (Abdomen): normal bowel sounds, soft, nontender, no hepatosplenomegaly Musculoskeletal: no cyanosis or clubbing, extremities motor strength 5/5 Skin: no rashes, warm and dry Neurologic: moves all extremities (right sided neglect appears somewhat improved) and awake (more awake and alert than previous day); no focal motor deficits (difficult to assess due to receptive dysphasia but power appears equal b/l) Speech / Cognition: + abnormal speech, + expressive aphasia (similar to previous day) and + receptive aphasia (similar to previous day) Motor/Sensory: no tremor and no pronator drift (unable to truely access due to difficulty understanding) Cranial Nerves: PERRL, EOM intact bilaterally, normal facial strength, able to rotate head bilaterally and able to elevate shoulders bilaterally Psychiatric: Orientation: alert; + not oriented x 3 (suspect expressive dysphasia rather than truely disorientated) Results & Data Vital Signs (Past 12 Hours) Vital Signs Temp Pulse Pulse Pulse Resp BP Pulse Ox 09/07/19 19:41 37.0 C 55 L 19 180/54 H 95 09/07/19 16:00 58 L 09/07/19 15:19 36.6 C 57 L 20 172/52 H 96 09/07/19 11:44 36.4 C L 47 L 18 138/62 96 PG Care Time/CCT Total # of Minutes Spent Total Time Spent with Patient: Total time spent is greater than 50% in coordination of care (as documented) at patient's floor/unit and/or counseling patient: (1) HLD (hyperlipidemia) Hyperlipidemia type: mixed hyperlipidemia Qualified Code(s): E78.2 - Mixed hyperlipidemia (2) Hypertension Hypertension type: unspecified Qualified Code(s): I10 - Essential (primary) hypertension
[2019-09-07] MEDS: INSULIN GLARGINE SOLOSTAR 100 UNITS/ML 3 ML PEN SC SCH (21:46)
[2019-09-07] MEDS: ENOXAPARIN INJ 40 MG/0.4 ML SYR SQ SCH (21:46)
[2019-09-07] MEDS: ATORVASTATIN 40 MG TAB PO SCH (21:46)
[2019-09-07] MEDS: CLOPIDOGREL BISULFATE 75 MG TAB PO SCH (21:47)
[2019-09-08 07:10] LABS: Basophils # (auto) 0.01 K/uL (0-0.2); Basophils % (auto) 0.1 %; Eosinophils # (auto) 0.26 K/uL (0-0.5); Eosinophils % (auto) 3.7 %; Hematocrit (blood only) 34.8 % (37-47); Hemoglobin 11.6 g/dL (12.0-16.0); Immature Granulocytes # (auto) 0.01 K/uL (0.00-0.02); Immature Granulocytes % (auto) 0.1 %; Lymphocytes # (auto) 2.95 K/uL (1.2-3.4); Lymphocytes % (auto) 42.1 %; Mean Corpuscular Hemoglobin 29.6 pg (25-34); Mean Corpuscular Hgb Conc 33.3 g/dL (32-36); Mean Corpuscular Volume 88.8 fL (80-100); Mean Platelet Volume 11.7 fL (7.4-10.4); Monocytes # (auto) 0.48 K/uL (0.11-0.59); Monocytes % (auto) 6.8 %; Neutrophils % (auto) 47.2 %; Platelet Count 139 K/uL (130-400); RDW Coefficient of Variation 13.4 % (11.5-14.5); RDW Standard Deviation 43.7 fL (36.4-46.3); Red Blood Count 3.92 M/uL (4.2-5.4); White Blood Count 7.01 K/uL (4.8-10.8)
[2019-09-08 07:43] LABS: BUN Creatinine Ratio 24.2 (10-20); Calcium 8.6 mg/dl (8.5-10.1); Creatinine Clr Calc Pharmacy 38.8 ml/min; Est GFR (Non-African American) 58.7; Potassium 3.9 mmol/L (3.5-5.1)
[2019-09-08] MEDS: ASPIRIN 81 MG ECTAB PO SCH (09:29)
[2019-09-08] MEDS: lisinopriL 5 MG TAB PO SCH (09:29)
[2019-09-08] MEDS: MULTIVITAMIN TAB PO SCH (09:29)
[2019-09-08] MEDS: INSULIN ASPART 100 UNITS/ML 3 ML PEN SC SCH ×4 (09:29→20:17)
[2019-09-08] MEDS: INSULIN GLARGINE SOLOSTAR 100 UNITS/ML 3 ML PEN SC SCH ×2 (09:32→20:14)
--- NOTE | 2019-09-08 11:11 | Neurology Progress Note ---
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 On exam, she has mild receptive and expressive deficits making this a combined aphasia, but this is much improved compared to when I saw her September 06. She has no other neurologic deficits on examination (no focal findings, meningeal signs, or encephalopathy). I do not think she is confused or has altered mental status. I do not think this is anything to do with a seizure. MRI of the brain September 05 did not actually show a stroke which is interesting because this would have to be fairly large, hitting both the expressive (Broca) and receptive (Wernicke) areas. Actually the MRI of the brain looks fairly good for age with only mild chronic cerebral ischemia and atrophy. Patient does have significant left internal carotid artery and right posterior cerebral artery stenosis at 70 percent each. This is despite being on Plavix daily. It has not even been 24 hours yet since her event so this still could be a prolonged TIA (reversible ischemic neurologic deficit-RIND). In addition, this event could be temporal/parietal lobe vasospasm due to significant hypertension. She has had 2 other episodes in the last few months which were very similar but of a lesser duration. Other risk factors for ischemic stroke would be diabetes and her history of dyslipidemia. Echocardiogram was unremarkable. Recommendations: 1. Continue 81 mg aspirin and 75 milligram clopidogrel daily. She should probably be on both antiplatelet medications in the short-term. There is no indication for anticoagulation. 2. Control blood pressure as you are doing a me for a mean arterial pressure of 95 to 100. 3. Hemoglobin A1c is 6.8. Try to improve control to get the hemoglobin A1c closer to 6. 4. Continue atorvastatin at 40 milligrams daily. There is no indication for high-dose statins in this patient. 5. Speech therapy consultation. Increase activity and consider PT and OT consultations as well. 6. For repeat MRI of the brain to see if there was an actual ischemic area given this significant language issue. 7. Social service consult to talk with the daughter. The question is can this patient go home with supervision or needs to be placed. Overall, I spent a total of 35 minutes with this case including review of records, direct evaluation the patient at bedside, and discussing the case with the patient and her son at bedside, RN at bedside, and Dr. Crespo, including differential diagnosis and treatment options. Subjective Patient is doing well with no complaint of pain or headache. She is sitting up in a chair pleasant and cooperative. There is some reports that she is speaking a little bit better. Blood pressure is 185/66. CBC shows a mild anemia Chem profile was unremarkable. Physical Exam Physical Exam: She is awake and alert. She has trouble naming objects but can name some. She can name some colors. She can repeat some test phrases. There is no obvious dysarthria but there is still an expressive aphasia. She seems to comprehend fairly well but does get a little bit confused on 2 step commands. Extraocular eye muscles are intact without nystagmus. There is no facial droop. There is no weakness in the limbs and strength is symmetrical. There is no ataxia or tremors bilaterally. She is sitting up in the chair well. Results & Data Vital Signs (Past 12 Hours) Vital Signs Temp Pulse Pulse Pulse Resp BP BP 09/08/19 07:45 36.5 C 56 L 19 161/56 H 185/66 H 09/08/19 04:44 37 C 56 L 18 129/69 09/08/19 00:01 59 L 09/07/19 23:39 36.4 C L 58 L 22 162/63 H Pulse Ox 09/08/19 07:45 96 09/08/19 04:44 95 09/08/19 00:01 09/07/19 23:39 95 PG Care Time/CCT Total # of Minutes Spent Total Time Spent with Patient: Total time spent is greater than 50% in coordination of care (as documented) at patient's floor/unit and/or counseling patient:
--- NOTE | 2019-09-08 11:39 | Hospitalist Progress Note ---
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 alternative explanation such as vasospasm for ongoing deficit. Concerned prolonged event due to sudden drop in blood pressure initially with x2 labetalol use. Now blood pressure back up yesterday so had her usual lisinopril 5mg last night and will continue today. Carotid artery stenosis as below Echo - no LV thrombus Rx ASA, Plavix, Atorvastatin (pt on plavix prior to admission) (2) Hypertensive emergency: Continue lisinopril 5mg PO Daily Labetalol for sBP > 220 Continue to monitor (3) Hypertension: As above (4) HLD (hyperlipidemia): LDL 43, continue atorvastatin 40mg p.o. nightly (5) Diabetes mellitus type 2 in nonobese: BSG accetable. Continue on increased lantus 10 units BID. Novolog carb coverage 15, correction 45. Aim 110-140. Accu-Cheks before meals and at bedtime. (6) Carotid stenosis, left: Discussed with Dr Medina - Consult vascular surgery. Unclear whether this is contributing towards her recurrent events as previous < 50 % when she had similar symptoms and no MRI confirmation of stroke at present. (7) DVT prophylaxis: Lovenox 40 mg daily (8) Discharge planning issues: Continue PT/OT/speech Subjective Patient seen sitting in chair with son at bedside. Certainly seems much improved today and able to express exactly what she wants to say however her words and actions are somewhat delayed. No longer favoring left side. Orientated x3. No chest, abdominal or extremity pain. Review of Systems Review of Systems: All systems reviewed & are unremarkable except as noted in HPI & below Physical Exam Constitutional: WD/WN, vitals as above Eyes: PERRL, conjunctivae normal, anicteric sclerae ENMT: external ear and nose normal, oropharynx normal Neck: normal visual inspection and trachea midline Respiratory: normal respiratory effort, lungs clear to auscultation Cardiovascular: RRR, no murmur, no edema Musculoskeletal: no cyanosis or clubbing, extremities motor strength 5/5 Skin: no rashes, warm and dry Neurologic: moves all extremities and awake; no focal motor deficits Speech / Cognition: + abnormal speech, + expressive aphasia (much improved, very mild) and + receptive aphasia (still present but improved) Motor/Sensory: no tremor and no pronator drift Cranial Nerves: PERRL, EOM intact bilaterally, normal facial strength, able to rotate head bilaterally and able to elevate shoulders bilaterally Psychiatric: Orientation: alert and oriented x 3 Results & Data Vital Signs (Past 12 Hours) Vital Signs Temp Pulse Pulse Pulse Resp BP BP 09/08/19 11:24 36.8 C 60 18 131/72 09/08/19 07:45 36.5 C 56 L 19 161/56 H 185/66 H 09/08/19 04:44 37 C 56 L 18 129/69 09/08/19 00:01 59 L 09/07/19 23:39 36.4 C L 58 L 22 162/63 H Pulse Ox 09/08/19 11:24 97 09/08/19 07:45 96 09/08/19 04:44 95 09/08/19 00:01 09/07/19 23:39 95 PG Care Time/CCT Total # of Minutes Spent Total Time Spent with Patient: Total time spent is greater than 50% in coordination of care (as documented) at patient's floor/unit and/or counseling patient: (1) Hypertension Hypertension type: unspecified Qualified Code(s): I10 - Essential (primary) hypertension (2) HLD (hyperlipidemia) Hyperlipidemia type: mixed hyperlipidemia Qualified Code(s): E78.2 - Mixed hyperlipidemia
[2019-09-08] MEDS ORDERED: GADOBUTROL 65ML VIAL IV PRN (12:05)
--- NOTE | 2019-09-08 12:17 | Magnetic Resonance Report ---
MR brain wo/w con CLINICAL HISTORY: ongoing receptive > expressive dysphasia progressive neurologic deficit COMPARISON STUDY: 09/05/2012 TECHNIQUE: Utilizing a 1.5 Myranda magnet and dedicated coil, multiplanar, multiecho imaging of the br ain was performed pre and postcontrast administration. IV administration of 8 mL of Gadavist contras t was uneventful. FINDINGS: Diffusion images show no evidence for an acute ischemic process. Findings of age-related ce rebral atrophy as well as chronic small vessel change. The ventricular system is midline. Postcontrast images are considered negative for abnormal postcontrast enhancement. The ventricular sy stem is midline. Sella and parasellar regions are unremarkable. The internal auditory canals are symmetric. IMPRESSION: 1. No evidence for an acute ischemic process. 2. Age-related atrophy and chronic small vessel change. 3. No change of significance from the prior study. ACT 112: Negative or not required by law. The above report was generated using voice recognition software. It may contain grammatical, syntax or spelling errors. Electronically signed by: Irving Bashir M.D. 09/08/2019 12:16 PM
[2019-09-08] MEDS: ATORVASTATIN 40 MG TAB PO SCH (20:15)
[2019-09-08] MEDS: ENOXAPARIN INJ 40 MG/0.4 ML SYR SQ SCH (20:15)
[2019-09-08] MEDS: CLOPIDOGREL BISULFATE 75 MG TAB PO SCH (20:17)
[2019-09-08] MEDS: ACETAMINOPHEN 325 MG TAB PO PRN (22:17)
[2019-09-09] MEDS: ASPIRIN 81 MG ECTAB PO SCH (07:40)
[2019-09-09] MEDS: lisinopriL 5 MG TAB PO SCH (07:40)
[2019-09-09] MEDS: MULTIVITAMIN TAB PO SCH (07:40)
[2019-09-09] MEDS: INSULIN ASPART 100 UNITS/ML 3 ML PEN SC SCH ×4 (08:14→20:53)
--- NOTE | 2019-09-09 08:14 | Neurology Progress Note ---
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 On exam today, she she is markedly improved, getting better with her speech accuracy, comprehension, and fluency each day. She is probably close to baseline today but is still a little hesitant in her speech. She has no other neurologic deficits on examination (no focal findings, meningeal signs, or encephalopathy). I do not think she is confused or has altered mental status. I do not think this had anything to do with a seizure. Repeat MRI of the brain September 08 did not actually show a stroke. Given the time frame and her rapid improvement I suspected prolonged TIA, which is better classified as a RIND (reversible ischemic neurologic deficit). This event was likely temporal/parietal lobe vasospasm due to significant hypertension. She has had 2 other episodes in the last few months which were very similar but of a lesser duration. Other risk factors for ischemic stroke would be diabetes and her history of dyslipidemia. Echocardiogram was unremarkable. Patient does have a 70 percent stenosis of the origin of the left internal carotid artery and 70 percent stenosis of the origin of the right posterior cerebral artery, as seen on CT angiography Recommendations: 1. Continue 81 mg aspirin and 75 milligram clopidogrel daily. She should probably be on both antiplatelet medications in the short-term, but could be switched to clopidogrel alone in a few weeks. 2. Control blood pressure as you are doing, aiming for a mean arterial pressure of about 95. 3. Hemoglobin A1c is 6.8. Try to improve control to get the hemoglobin A1c closer to 6. 4. Continue atorvastatin at 40 milligrams daily. There is no indication for high-dose statins in this patient. 5. Continue speech therapy and consider ongoing physical/occupational therapy as well. 6. I see no need for a vascular surgery consultation at this time. We can follow the carotid stenosis over time. Overall, I spent a total of 25 minutes with this case including review of records, direct evaluation the patient at bedside, and discussing the case with the patient, RN at bedside, and Dr. Crespo, including differential diagnosis and treatment options. Subjective Patient feels much better today with her speech and ability to express herself. She denies any headache or pain except he has some ankle pain bilaterally. She is not dizzy. She does not have any weakness. Nursing reports no new incidence overnight. Blood pressure is 170/52 (MAP 91) She is afebrile. MRI of the brain yesterday showed no acute stroke. There was very mild generalized atrophy and small vessel ischemia as before (not really all that bad considering her age). Physical Exam Physical Exam: She is awake and alert. She is pleasant and cooperative. Speech is more fluent than previous. She can name objects and colors quicker and more accurately. She can repeat test phrases better today as well. She is not dysarthric. Extraocular eye muscles are intact without nystagmus. There is no facial droop. Coordination is normal in the arms without tremor or ataxia. Strength is symmetrical in the limbs Results & Data Vital Signs (Past 12 Hours) Vital Signs Temp Pulse Pulse Pulse Resp BP BP 09/09/19 07:30 36.6 C 54 L 16 170/52 H 09/09/19 02:50 36.7 C 64 17 152/67 H 09/09/19 01:17 76 09/08/19 23:47 36.9 C 59 L 18 120/69 Pulse Ox 09/09/19 07:30 97 09/09/19 02:50 97 09/09/19 01:17 09/08/19 23:47 96 PG Care Time/CCT Total # of Minutes Spent Total Time Spent with Patient: Total time spent is greater than 50% in coordination of care (as documented) at patient's floor/unit and/or counseling patient: Coding Level of Care Code 57969 Subseq Hosp Care Lvl 2 Diagnoses 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
[2019-09-09] MEDS: INSULIN GLARGINE SOLOSTAR 100 UNITS/ML 3 ML PEN SC SCH (08:15)
[2019-09-09] MEDS ORDERED: VERAPAMIL HCL 40 MG TAB PO SCH (14:00)
--- NOTE | 2019-09-09 19:26 | Hospitalist Progress Note ---
Date of Service September 09, 2019 Assessment & Plan (1) Acute reversible ischemic neurologic deficit: x2 MRIs without acute ischemic events ?due to vasospasm. BP management as below Echo - no LV thrombus ICA stenosis not felt to be contributory Rx ASA, Plavix, Atorvastatin (pt on plavix prior to admission) (2) Hypertension: Continue lisinopril 5mg PO daily. Add low dose of verapamil as still having elevated BP and also possibly help with vasospasm as discussed with Dr Adam Goodman for sBP > 220 Continue to monitor (3) HLD (hyperlipidemia): LDL 43, continue atorvastatin 40mg p.o. nightly (4) Diabetes mellitus type 2 in nonobese: Decrease lantus to 15 units daily as over controlled. Bolus sliding scale. Aim 110-140. Accu-Cheks before meals and at bedtime. (5) DVT prophylaxis: Lovenox 40 mg daily (6) Discharge planning issues: Continue PT/OT. Medically stable for discharge. Failed peer [facility] peer for [facility] Subjective Patient and family at bedside all feel she is somewhat improved today in addition. No problems with any words noted but still not completely fluent with her speech. Doing very well with physical therapy. Currently on regular meals with speech therapy and having no issues with eating. All questions and concerns answered from family members. Peer to peer with her insurance company - not a candidate for [facility] due to not needing PT. Review of Systems Review of Systems: All systems reviewed & are unremarkable except as noted in HPI & below Physical Exam Constitutional: WD/WN, vitals as above no acute distress Respiratory: normal respiratory effort, lungs clear to auscultation Gastrointestinal (Abdomen): normal bowel sounds, soft, nontender, no hepatosplenomegaly Musculoskeletal: no cyanosis or clubbing, extremities motor strength 5/5 Skin: no rashes, warm and dry Neurologic: moves all extremities and awake; no focal motor deficits Speech / Cognition: + abnormal speech and + expressive aphasia (mild); no receptive aphasia (appears to be resolved) Motor/Sensory: no tremor Cranial Nerves: able to rotate head bilaterally and able to elevate shoulders bilaterally Psychiatric: A+Ox3, euthymic affect Results & Data Vital Signs (Past 12 Hours) Vital Signs Temp Pulse Pulse Resp BP BP Pulse Ox 09/09/19 19:23 36.8 C 61 20 96/61 L 98 09/09/19 16:09 73 09/09/19 15:00 36.8 C 59 L 19 125/66 97 09/09/19 11:35 37.0 C 73 20 105/61 100 09/09/19 07:30 36.6 C 54 L 16 170/52 H 97 PG Care Time/CCT Total # of Minutes Spent Total Time Spent with Patient: Total time spent is greater than 50% in coordination of care (as documented) at patient's floor/unit and/or counseling patient: Coding Level of Care Code 43209 Subseq Hosp Care Lvl 1 Diagnoses Acute reversible ischemic neurologic deficit I63.9 Hypertension I10 Hypertension type: unspecified HLD (hyperlipidemia) E78.2 Hyperlipidemia type: mixed hyperlipidemia Diabetes mellitus type 2 in nonobese E11.9 DVT prophylaxis Z29.9 Discharge planning issues Z02.9 (1) HLD (hyperlipidemia) Hyperlipidemia type: mixed hyperlipidemia Qualified Code(s): E78.2 - Mixed hyperlipidemia (2) Hypertension Hypertension type: unspecified Qualified Code(s): I10 - Essential (primary) hypertension
[2019-09-09] MEDS: ENOXAPARIN INJ 40 MG/0.4 ML SYR SQ SCH (20:54)
[2019-09-09] MEDS: ATORVASTATIN 40 MG TAB PO SCH (20:54)
[2019-09-09] MEDS: CLOPIDOGREL BISULFATE 75 MG TAB PO SCH (20:55)
[2019-09-10] MEDS: lisinopriL 5 MG TAB PO SCH (08:11)
[2019-09-10] MEDS: MULTIVITAMIN TAB PO SCH (08:11)
[2019-09-10] MEDS: ASPIRIN 81 MG ECTAB PO SCH (08:12)
[2019-09-10] MEDS: INSULIN GLARGINE SOLOSTAR 100 UNITS/ML 3 ML PEN SC SCH (08:12)
[2019-09-10] MEDS: INSULIN ASPART 100 UNITS/ML 3 ML PEN SC SCH ×4 (08:26→21:19)
[2019-09-10] MEDS: ACETAMINOPHEN 325 MG TAB PO PRN ×2 (15:12→20:15)
--- NOTE | 2019-09-10 18:37 | Hospitalist Progress Note ---
Date of Service September 10, 2019 Assessment & Plan (1) Tension headache: Acetaminophen PRN. Possible related to lower BP today. (2) Acute reversible ischemic neurologic deficit: x2 MRIs without acute ischemic events ?due to vasospasm. BP management as below Echo - no LV thrombus ICA stenosis not felt to be contributory Rx ASA, Plavix, Atorvastatin (pt on plavix prior to admission) (3) Hypertension: Continue lisinopril 5mg PO daily. Very labile, unable to tolerate even one dose of verapamil yesterday. Labetalol for sBP > 220 Continue to monitor (4) HLD (hyperlipidemia): LDL 43, continue atorvastatin 40mg p.o. nightly (5) Diabetes mellitus type 2 in nonobese: Continue lantus to 15 units daily as over controlled. Bolus sliding scale. Aim 110-140. Accu-Cheks before meals and at bedtime. (6) DVT prophylaxis: Lovenox 40 mg daily (7) Discharge planning issues: Continue PT/OT. Medically stable for discharge. Awaiting insurance and bed at [facility]. Subjective Patient notes continued improvement in her speech. Doing well with PT although she does not some mild dizziness when she does her physical therapy. Having new acute mild frontal headache this morning, no radiation, no sinus or post nasal drip symptoms. Across the front of her forehead. Review of Systems Review of Systems: All systems reviewed & are unremarkable except as noted in HPI & below Physical Exam Constitutional: WD/WN, vitals as above no acute distress Respiratory: normal respiratory effort, lungs clear to auscultation Cardiovascular: RRR, no murmur, no edema Musculoskeletal: no cyanosis or clubbing, extremities motor strength 5/5 Skin: no rashes, warm and dry Neurologic: moves all extremities and awake; no focal motor deficits Speech / Cognition: + abnormal speech and + expressive aphasia (mild, improving); no receptive aphasia (resolved on exam) Motor/Sensory: no tremor Psychiatric: A+Ox3, euthymic affect Results & Data Vital Signs (Past 12 Hours) Vital Signs Temp Pulse Pulse Resp BP BP Pulse Ox 09/10/19 18:27 68 09/10/19 15:22 36.9 C 65 18 101/52 L 99 09/10/19 11:40 36.5 C 71 19 126/70 97 09/10/19 07:42 36.7 C 57 L 18 141/91 H 98 09/10/19 07:23 49 L PG Care Time/CCT Total # of Minutes Spent Total Time Spent with Patient: Total time spent is greater than 50% in coordination of care (as documented) at patient's floor/unit and/or counseling patient: Coding Level of Care Code 49863 Subseq Hosp Care Lvl 1 Diagnoses Tension headache G44.209 Acute reversible ischemic neurologic deficit I63.9 Hypertension I10 Hypertension type: unspecified HLD (hyperlipidemia) E78.2 Hyperlipidemia type: mixed hyperlipidemia Diabetes mellitus type 2 in nonobese E11.9 DVT prophylaxis Z29.9 Discharge planning issues Z02.9 (1) Hypertension Hypertension type: unspecified Qualified Code(s): I10 - Essential (primary) hypertension (2) HLD (hyperlipidemia) Hyperlipidemia type: mixed hyperlipidemia Qualified Code(s): E78.2 - Mixed hyperlipidemia
[2019-09-10] MEDS: ATORVASTATIN 40 MG TAB PO SCH (20:10)
[2019-09-10] MEDS: CLOPIDOGREL BISULFATE 75 MG TAB PO SCH (20:10)
[2019-09-10] MEDS: ENOXAPARIN INJ 40 MG/0.4 ML SYR SQ SCH (20:11)
[2019-09-11] MEDS: ACETAMINOPHEN 325 MG TAB PO PRN ×2 (00:26→08:13)
[2019-09-11 05:49] LABS: Basophils # (auto) 0.01 K/uL (0-0.2); Basophils % (auto) 0.1 %; Eosinophils # (auto) 0.34 K/uL (0-0.5); Eosinophils % (auto) 4.4 %; Hematocrit (blood only) 32.4 % (37-47); Hemoglobin 10.9 g/dL (12.0-16.0); Immature Granulocytes # (auto) 0.01 K/uL (0.00-0.02); Immature Granulocytes % (auto) 0.1 %; Lymphocytes % (auto) 49.2 %; Mean Corpuscular Hemoglobin 29.8 pg (25-34); Mean Corpuscular Hgb Conc 33.6 g/dL (32-36); Mean Corpuscular Volume 88.5 fL (80-100); Mean Platelet Volume 11.1 fL (7.4-10.4); Monocytes # (auto) 0.58 K/uL (0.11-0.59); Monocytes % (auto) 7.5 %; Neutrophils # (auto) 2.98 K/uL (1.4-6.5); Neutrophils % (auto) 38.7 %; Platelet Count 136 K/uL (130-400); RDW Coefficient of Variation 13.3 % (11.5-14.5); RDW Standard Deviation 43.2 fL (36.4-46.3); Red Blood Count 3.66 M/uL (4.2-5.4); White Blood Count 7.72 K/uL (4.8-10.8)
[2019-09-11 06:18] LABS: BUN Creatinine Ratio 32.7 (10-20); Calcium 8.5 mg/dl (8.5-10.1); Creatinine Clr Calc Pharmacy 23.4 ml/min; Est GFR (African American) 36.6; Est GFR (Non-African American) 31.5; Potassium 4.2 mmol/L (3.5-5.1)
[2019-09-11] MEDS: MULTIVITAMIN TAB PO SCH (08:14)
[2019-09-11] MEDS: ASPIRIN 81 MG ECTAB PO SCH (08:14)
[2019-09-11] MEDS: INSULIN GLARGINE SOLOSTAR 100 UNITS/ML 3 ML PEN SC SCH (08:15)
[2019-09-11] MEDS: INSULIN ASPART 100 UNITS/ML 3 ML PEN SC SCH ×4 (08:17→20:07)
[2019-09-11 11:20] LABS: C Reactive Protein 7.96 mg/dl (0-0.29)
--- NOTE | 2019-09-11 11:32 | XRay Report ---
XR ankle RT min 3V routine HISTORY: 88 years-old Female acute right ankle swelling, unable to put pressure acute pain and swell ing of the right ankle without reported trauma COMPARISON: None available TECHNIQUE: 3 views of the right ankle FINDINGS: Demineralized appearance of the bones. Severe multifocal midfoot with at least moderate hindfoot oste oarthritis. Spurring of the calcaneus. Soft tissue calcifications are noted within the region of the distal Achilles tendon and proximal plantar fascia with additional tissue calcifications projecting o maude the medial tissues of the ankle. Arterial calcifications are noted. Mild circumferential soft tis shamar swelling of the ankle. No acute fracture, or dislocation. IMPRESSION: 1. Mild soft tissue swelling without acute fracture or dislocation. 2. Additional findings as above. ACT 112: Negative or not required by law. The above report was generated using voice recognition software. It may contain grammatical, syntax o r spelling errors. Electronically signed by: Beto Veloz M.D. 09/11/2019 11:31 AM
[2019-09-11] MEDS ORDERED: AMLODIPINE BESYLATE 5 MG TAB PO ONE (12:17)
[2019-09-11] MEDS ORDERED: IBUPROFEN 200 MG TAB PO STA (12:18)
[2019-09-11] MEDS ORDERED: LACTATED RINGER'S 1,000 ML IV SCH (12:30)
--- NOTE | 2019-09-11 16:31 | Hospitalist Progress Note ---
Date of Service September 11, 2019 Assessment & Plan (1) Acute kidney injury: UA +/- micro Suspect from poor oral intake - give 1L LR 80ml/hr and recheck in AM Hold lisinopril and start amlodipine for BP control. Since she would benefit from ongoing NSAIDs will repeat BMP in afternoon to determine whether ibuprofen can be scheduled. (2) Inflammation of right ankle joint: XR - performed due to pain on ambulation and bone tenderness. No fracture. Mild soft tissue swelling with severe mid and hind foot arthritis. Uric acid leel WNL. In the absence of known gout or autoimmune disease with monoarthritis suspect acute inflammation after prolonged rest secondary to severe osteoarthritis. Rx Small doses of ibuprofen until her renal function improves (see above). (3) Tension headache: Resolved with acetaminophen. (4) Acute reversible ischemic neurologic deficit: x2 MRIs without acute ischemic events ?due to vasospasm. BP management as below Echo - no LV thrombus Left ICA stenosis not felt to be contributory Rx ASA, Plavix, Atorvastatin (pt on plavix prior to admission) (5) Hypertension: HR labile and sometimes in high 40s-50s in SR therefore will avoid beta- blockers or nondihydropyridine calcium channel blockers. Switch lisinopril for amlodipine 2.5mg PO daily due to MARICARMEN Continue to monitor (6) HLD (hyperlipidemia): LDL 43, continue atorvastatin 40mg p.o. nightly (7) Diabetes mellitus type 2 in nonobese: HbA1C 6.8. Continue lantus to 15 units daily. Bolus sliding scale 45 correction, carb ratio 1:15. Aim 110-140. Accu-Cheks before meals and at bedtime. (8) DVT prophylaxis: Lovenox 30 mg daily, reduced dose due to MARICARMEN as above (9) Discharge planning issues: Continue PT/OT. No longer medically stable due to MARICARMEN as above. Planning on [facility] on discharge. Subjective No acute events overnight. Appears to have mostly fluent speech today although she notes she is still having some difficulty with word finding. Reading and playing cards appears to be easier. Tension headache resolved with acetaminophen. Acute right ankle pain - started this morning while walking on it she noticed it was painful. Severity 4/10. Never had problems with her ankle before. Appears swollen. No gout or autoimmune history. No knee or foot pain. Review of Systems Review of Systems: All systems reviewed & are unremarkable except as noted in HPI & below Physical Exam Constitutional: WD/WN, vitals as above no acute distress ENMT: external ear and nose normal, oropharynx normal Neck: normal visual inspection and trachea midline Respiratory: normal respiratory effort, lungs clear to auscultation Cardiovascular: Rate/Rhythm: regular rate and regular rhythm Heart Sounds: no murmur Extremities: normal capillary refill and + pedal edema (b/l pedal edema 1+ in feet only); no calf tenderness Musculoskeletal: Ankle: + effusion (right ankle) and + joint line tenderness (ankle) (right medial and lateral malleolus); no skin erythema, no ecchymosis and normal ROM of ankle Skin: no rashes, warm and dry Neurologic: moves all extremities and awake; no focal motor deficits Speech / Cognition: + abnormal speech and + expressive aphasia (very occasional finds it difficult to find the right word); no receptive aphasia (resolved on exam) Psychiatric: A+Ox3, euthymic affect Results & Data Vital Signs (Past 12 Hours) Vital Signs Temp Pulse Pulse Resp BP BP Pulse Ox 09/11/19 16:19 36.6 C 48 L 16 130/52 L 96 09/11/19 15:06 60 09/11/19 11:37 55 L 16 143/57 H 98 09/11/19 07:20 36.5 C 51 L 18 154/61 H 97 09/11/19 07:12 46 L 09/11/19 04:47 36.4 C L 53 L 16 135/66 96 PG Care Time/CCT Total # of Minutes Spent Total Time Spent with Patient: Total time spent is greater than 50% in coordination of care (as documented) at patient's floor/unit and/or counseling patient: Coding Level of Care Code 87142 Subseq Hosp Care Lvl 2 Diagnoses Acute kidney injury N17.9 Inflammation of right ankle joint M19.071 Tension headache G44.209 Acute reversible ischemic neurologic deficit I63.9 Hypertension I10 Hypertension type: unspecified HLD (hyperlipidemia) E78.2 Hyperlipidemia type: mixed hyperlipidemia Diabetes mellitus type 2 in nonobese E11.9 DVT prophylaxis Z29.9 Discharge planning issues Z02.9 (1) Hypertension Hypertension type: unspecified Qualified Code(s): I10 - Essential (primary) hypertension (2) HLD (hyperlipidemia) Hyperlipidemia type: mixed hyperlipidemia Qualified Code(s): E78.2 - Mixed hyperlipidemia
[2019-09-11 17:43] LABS: BUN Creatinine Ratio 31.4 (10-20); Calcium 8.3 mg/dl (8.5-10.1); Creatinine Clr Calc Pharmacy 23.2 ml/min; Est GFR (African American) 36.3; Est GFR (Non-African American) 31.3; Potassium 4.3 mmol/L (3.5-5.1)
[2019-09-11] MEDS: ATORVASTATIN 40 MG TAB PO SCH (20:02)
[2019-09-11] MEDS: CLOPIDOGREL BISULFATE 75 MG TAB PO SCH (20:03)
[2019-09-11] MEDS: ENOXAPARIN INJ 30 MG/0.3 ML SYR SQ SCH (20:29)
[2019-09-11 23:42] LABS: Appearance Urine Clear (Clear); Bilirubin Urine Negative (Negative); Blood Urine Negative (Negative); Color Urine Yellow; Glucose Urine UA Negative (Negative); Ketones Urine Negative (Negative); Leukocyte Esterase Urine 1+ (Negative); Nitrite Urine Negative (Negative); Protein Urine Negative (Negative); Specific Gravity Urine 1.007 (1.000-1.030); Urobilinogen Urine Negative (Negative); pH Urine 5.5 (4.5-7.5)
[2019-09-11 23:54] LABS: Bacteria Urine Automated 1+ (Negative); Cast Urine Automated 0 /lpf (0-5); RBC Urine Automated 0-4 /hpf (0-4)
[2019-09-12 06:35] LABS: BUN Creatinine Ratio 34.8 (10-20); Calcium 8.9 mg/dl (8.5-10.1); Creatinine Clr Calc Pharmacy 26.6 ml/min; Est GFR (African American) 42.8; Est GFR (Non-African American) 36.9; Potassium 4.3 mmol/L (3.5-5.1)
[2019-09-12] MEDS: AMLODIPINE BESYLATE 5 MG TAB PO SCH (08:19)
[2019-09-12] MEDS: MULTIVITAMIN TAB PO SCH (08:20)
[2019-09-12] MEDS: INSULIN GLARGINE SOLOSTAR 100 UNITS/ML 3 ML PEN SC SCH (08:20)
[2019-09-12] MEDS: ASPIRIN 81 MG ECTAB PO SCH (08:20)
[2019-09-12] MEDS: INSULIN ASPART 100 UNITS/ML 3 ML PEN SC SCH ×4 (08:20→21:01)
--- NOTE | 2019-09-12 08:21 | Hospitalist Progress Note ---
Date of Service September 12, 2019 Assessment & Plan (1) Hypertension: Blood pressure was not controlled well today. Her blood pressure fluctuates and she was off of lisinopril 5 mg daily which was her home dose. Blood pressure was as high as 191/68 . We decided to keep patient in the hospital for 1 more day and observe her high blood pressure . Restarted lisinopril 5 mg p.o. and her pressure improved to 138/52 During the day blood pressure maintained to be in the same range. We are planning to discharge patient tomorrow to [facility]. Present on Admission?: Yes (2) Acute kidney injury: UA +/- micro Suspect from poor oral intake - give 1L LR 80ml/hr and recheck in AM Restart lisinopril and start amlodipine for BP control. (3) Inflammation of right ankle joint: XR - performed due to pain on ambulation and bone tenderness. No fracture. Mild soft tissue swelling with severe mid and hind foot arthritis. Uric acid leel WNL. In the absence of known gout or autoimmune disease with monoarthritis suspect acute inflammation after prolonged rest secondary to severe osteoarthritis. Rx Small doses of ibuprofen until her renal function improves (see above). (4) Tension headache: Resolved with acetaminophen. (5) Acute reversible ischemic neurologic deficit: x2 MRIs without acute ischemic events ?due to vasospasm. BP management as below Echo - no LV thrombus Left ICA stenosis not felt to be contributory Rx ASA, Plavix, Atorvastatin (pt on plavix prior to admission) (6) HLD (hyperlipidemia): LDL 43, continue atorvastatin 40mg p.o. nightly (7) Diabetes mellitus type 2 in nonobese: HbA1C 6.8. Continue lantus to 15 units daily. Bolus sliding scale 45 correction, carb ratio 1:15. Aim 110-140. Accu-Cheks before meals and at bedtime. (8) DVT prophylaxis: Lovenox 30 mg daily, reduced dose due to MARICARMEN as above (9) Discharge planning issues: Continue PT/OT. No longer medically stable due to MARICARMEN as above. Planning on [facility] on discharge. Subjective Patient seen and examined at the bedside. No acute events overnight. Patient had elevated blood pressure in the morning to 191/68. In consideration of her history of TIA we decided to keep her for 1 more day in the hospital and observe her high blood pressure. Patient did not have any complaint at this time and she was denying any chest pain, headache, shortness of breath, abdominal pain, frequency, urgency. Review of Systems Review of Systems: All systems reviewed & are unremarkable except as noted in HPI & below Physical Exam Constitutional: WD/WN, vitals as above well developed Eyes: PERRL, conjunctivae normal, anicteric sclerae ENMT: external ear and nose normal, oropharynx normal Neck: trachea midline, no thyromegaly Respiratory: normal respiratory effort, lungs clear to auscultation Cardiovascular: Heart Sounds: normal S1, normal S2 and + murmur Gastrointestinal (Abdomen): normal bowel sounds, soft, nontender, no hepatosplenomegaly Musculoskeletal: Head/Neck/Chest: normocephalic, head atraumatic and neck supple Extremities: + abnormal strength (Strength in upper extremity both left and right 2 of 5, lower extremity 5/5) and + limited ROM of upper extremity Skin: no rashes, warm and dry Neurologic: PERRL, EOMI, accommodation nl, no face palsy, no dysarthria deep tendon reflexes 2+ bilaterally, + focal motor deficit and awake Genitourinary: no vaginal lesions, no adnexal mass Lymphatic: no cervical or axillary lymphadenopathy Results & Data Vital Signs (Past 12 Hours) Vital Signs Temp Pulse Pulse Pulse Resp BP Pulse Ox 09/12/19 07:31 36.4 C L 61 16 191/68 H 98 09/12/19 04:58 58 L 113/42 L 09/12/19 04:40 36.5 C 54 L 18 97 09/12/19 02:02 55 L 09/12/19 00:43 63 09/11/19 23:14 36.5 C 55 L 16 145/66 H 98 PG Care Time/CCT Total # of Minutes Spent Total Time Spent with Patient: Total time spent is greater than 50% in coordination of care (as documented) at patient's floor/unit and/or counseling patient: Coding Level of Care Code 17573 Subseq Hosp Care Lvl 3 Diagnoses Hypertension I10 Hypertension type: unspecified Acute kidney injury N17.9 Inflammation of right ankle joint M19.071 Tension headache G44.209 Acute reversible ischemic neurologic deficit I63.9 HLD (hyperlipidemia) E78.2 Hyperlipidemia type: mixed hyperlipidemia Diabetes mellitus type 2 in nonobese E11.9 DVT prophylaxis Z29.9 Discharge planning issues Z02.9 (1) HLD (hyperlipidemia) Hyperlipidemia type: mixed hyperlipidemia Qualified Code(s): E78.2 - Mixed hyperlipidemia (2) Hypertension Hypertension type: unspecified Qualified Code(s): I10 - Essential (primary) hypertension
[2019-09-12] MEDS ORDERED: lisinopriL 5 MG TAB PO ONE (09:07)
[2019-09-12] MEDS: ENOXAPARIN INJ 30 MG/0.3 ML SYR SQ SCH (19:57)
[2019-09-12] MEDS: ATORVASTATIN 40 MG TAB PO SCH (19:58)
[2019-09-12] MEDS: CLOPIDOGREL BISULFATE 75 MG TAB PO SCH (19:58)
[2019-09-13] MEDS: AMLODIPINE BESYLATE 5 MG TAB PO SCH (07:50)
[2019-09-13] MEDS: MULTIVITAMIN TAB PO SCH (07:50)
[2019-09-13] MEDS: ASPIRIN 81 MG ECTAB PO SCH (07:50)
--- NOTE | 2019-09-13 08:10 | Hospitalist Progress Note ---
Date of Service September 13, 2019 Assessment & Plan (1) Hypertension: Blood pressure is well controlled today. Patient is ready to be discharged to [facility], waiting on authorization and placement. (2) Acute kidney injury: UA +/- micro Suspect from poor oral intake - give 1L LR 80ml/hr and recheck in AM Restart lisinopril and start amlodipine for BP control. (3) Inflammation of right ankle joint: XR - performed due to pain on ambulation and bone tenderness. No fracture. Mild soft tissue swelling with severe mid and hind foot arthritis. Uric acid leel WNL. In the absence of known gout or autoimmune disease with monoarthritis suspect acute inflammation after prolonged rest secondary to severe osteoarthritis. Rx Small doses of ibuprofen until her renal function improves (see above). (4) Tension headache: Resolved with acetaminophen. (5) Acute reversible ischemic neurologic deficit: x2 MRIs without acute ischemic events ?due to vasospasm. BP management as below Echo - no LV thrombus Left ICA stenosis not felt to be contributory Rx ASA, Plavix, Atorvastatin (pt on plavix prior to admission) (6) HLD (hyperlipidemia): LDL 43, continue atorvastatin 40mg p.o. nightly (7) Diabetes mellitus type 2 in nonobese: HbA1C 6.8. Continue lantus to 15 units daily. Bolus sliding scale 45 correction, carb ratio 1:15. Aim 110-140. Accu-Cheks before meals and at bedtime. (8) DVT prophylaxis: Lovenox 30 mg daily, reduced dose due to MARICARMEN as above (9) Discharge planning issues: Continue PT/OT. No longer medically stable due to MARICARMEN as above. Planning on [facility] on discharge. Subjective Patient seen and examined at the bedside. No acute events overnight. Patient had elevated blood pressure in the morning to 191/68. In consideration of her history of TIA we decided to keep her for 1 more day in the hospital and observe her high blood pressure. Patient did not have any complaint at this time and she was denying any chest pain, headache, shortness of breath, abdominal pain, frequency, urgency. Review of Systems Review of Systems: All systems reviewed & are unremarkable except as noted in HPI & below Physical Exam Constitutional: WD/WN, vitals as above well developed Eyes: PERRL, conjunctivae normal, anicteric sclerae ENMT: external ear and nose normal, oropharynx normal Neck: trachea midline, no thyromegaly Respiratory: normal respiratory effort, lungs clear to auscultation Cardiovascular: Heart Sounds: normal S1, normal S2 and + murmur Gastrointestinal (Abdomen): normal bowel sounds, soft, nontender, no hepatosplenomegaly Musculoskeletal: Head/Neck/Chest: normocephalic, head atraumatic and neck supple Extremities: + limited ROM of upper extremity; normal strength (Strength in upper extremity both left and right 2 of 5, lower extremity 5/5) Skin: no rashes, warm and dry Neurologic: PERRL, EOMI, accommodation nl, no face palsy, no dysarthria deep tendon reflexes 2+ bilaterally, + focal motor deficit and awake Genitourinary: no vaginal lesions, no adnexal mass Lymphatic: no cervical or axillary lymphadenopathy Results & Data Vital Signs (Past 12 Hours) Vital Signs Temp Pulse Pulse Resp BP BP Pulse Ox 09/13/19 07:44 36.4 C L 59 L 18 162/72 H 98 09/13/19 07:23 45 L 09/13/19 04:36 36.4 C L 57 L 18 150/66 H 96 09/13/19 00:10 36.7 C 48 L 18 139/40 L 98 09/12/19 22:20 49 L PG Care Time/CCT Total # of Minutes Spent Total Time Spent with Patient: Total time spent is greater than 50% in coordination of care (as documented) at patient's floor/unit and/or counseling patient: Coding Level of Care Code 73111 Subseq Hosp Care Lvl 3 Diagnoses Hypertension I10 Hypertension type: unspecified Acute kidney injury N17.9 Inflammation of right ankle joint M19.071 Tension headache G44.209 Acute reversible ischemic neurologic deficit I63.9 HLD (hyperlipidemia) E78.2 Hyperlipidemia type: mixed hyperlipidemia Diabetes mellitus type 2 in nonobese E11.9 DVT prophylaxis Z29.9 Discharge planning issues Z02.9 (1) HLD (hyperlipidemia) Hyperlipidemia type: mixed hyperlipidemia Qualified Code(s): E78.2 - Mixed hyperlipidemia (2) Hypertension Hypertension type: unspecified Qualified Code(s): I10 - Essential (primary) hypertension
[2019-09-13] MEDS: INSULIN GLARGINE SOLOSTAR 100 UNITS/ML 3 ML PEN SC SCH (08:18)
[2019-09-13] MEDS: INSULIN ASPART 100 UNITS/ML 3 ML PEN SC SCH ×4 (08:20→20:40)
[2019-09-13] MEDS: ENOXAPARIN INJ 30 MG/0.3 ML SYR SQ SCH (20:41)
[2019-09-13] MEDS: CLOPIDOGREL BISULFATE 75 MG TAB PO SCH (20:42)
[2019-09-13] MEDS: ATORVASTATIN 40 MG TAB PO SCH (20:42)
[2019-09-14] MEDS: INSULIN GLARGINE SOLOSTAR 100 UNITS/ML 3 ML PEN SC SCH (08:37)
[2019-09-14] MEDS: ASPIRIN 81 MG ECTAB PO SCH (08:37)
[2019-09-14] MEDS: AMLODIPINE BESYLATE 5 MG TAB PO SCH (08:37)
[2019-09-14] MEDS: MULTIVITAMIN TAB PO SCH (08:37)
[2019-09-14] MEDS: INSULIN ASPART 100 UNITS/ML 3 ML PEN SC SCH ×2 (08:40→12:26)
[2019-09-14 10:17] LABS: Hematocrit (blood only) 34.5 % (37-47); Hemoglobin 11.4 g/dL (12.0-16.0); Mean Corpuscular Hemoglobin 29.5 pg (25-34); Mean Corpuscular Volume 89.4 fL (80-100); Mean Platelet Volume 10.9 fL (7.4-10.4); Platelet Count 200 K/uL (130-400); RDW Coefficient of Variation 13.4 % (11.5-14.5); RDW Standard Deviation 43.9 fL (36.4-46.3); Red Blood Count 3.86 M/uL (4.2-5.4); White Blood Count 5.74 K/uL (4.8-10.8)
[2019-09-14 10:39] LABS: BUN Creatinine Ratio 35.6 (10-20); Calcium 9.1 mg/dl (8.5-10.1); Creatinine Clr Calc Pharmacy 29.9 ml/min; Est GFR (African American) 50.3; Est GFR (Non-African American) 43.4; Potassium 4.3 mmol/L (3.5-5.1)
[2019-09-14 10:56] LABS: ALC (manual) 2.69 K/uL (1.2-3.4); ANC (manual) 2.49 K/uL (1.4-6.5); Basophils # (manual) 0.15 K/uL (0-0.2); Basophils % (manual) 2.7 %; Eosinophils # (manual) 0.26 K/uL (0-0.5); Eosinophils % (manual) 4.5 %; Large Granular Lymph # (manua 2.01 K/uL; Large Granular Lymph % (manual) 35.1 %; Lymphocytes # (manual) 0.67 K/uL (1.2-3.4); Lymphocytes % (manual) 11.7 %; Monocytes # (manual) 0.15 K/uL (0.11-0.59); Monocytes % (manual) 2.7 %; Neutrophils # (manual) 2.49 K/uL (1.4-6.5); Neutrophils % (manual) 43.3 %
--- NOTE | 2019-09-22 10:08 | Discharge Summary ---
Date of Service date of admission - September 05, 2019 date of discharge - September 14, 2019 Admission HPI Per Admitting Provider The patient is a 88 year old female with past medical history of hypertension, hyperlipidemia, diabetes, CABG x 4-vesssel, who was brought to the emergency room by EMS with a complaint of inability to speak and with generalized weakness. Per her family this is her fifth similar episode of transient ischemic attack attack versus stroke in the past several months. She is also had very elevated blood pressure systolic above 200. ER physician discussed the case with stroke center neurology environmental compliance manager at [facility] () and he recommended MRI of the brain, to continue home medicines including clopidogrel/aspirin/atorvastatin, and for hypertensive emergency to start labetalol. Patient is poor historian and her speech is difficult to understand. Her family said that patient was usually able to speak very well. Appears that patient understands but cannot express herself properly. Patient words do not make any sense. She has expressive dysphasia. Patient last 12 hours at 10:30 AM when she made a phone call to her asking for help. EKG shows broad sinus bradycardia, with left axis deviation, septal infarct when compared to ECG from this July 2019. Labs WBC is 7.87, hemoglobin 12.6, hematocrit 38.1, platelets 148, PT 10.1, INR 1, sodium 139, potassium 4.7, chloride 109, BUN 32, creatinine 1.21, GFR 39.9, glucose 180, m agnesium 2, AST 27, ALT 31, alkaline phosphatase 94, TSH pending. In the ER patient was started on magnesium and she was IV and she was given labetalol for hypertensive emergency. Urine: Trace blood, 1+ leukocyte esterase, over 30 epithelial cells negative for bacteria negative for nitrates. CT of the head shows no acute intracranial abnormality.CTA of the head and neck shows compensatory and or augmentation of flow via patient right posterior communicating vessel. Minimal scattered plaque formation throughout the intracranial vasculature.No acute intracranial abnormality, 80% stenosis of the origin left external carotid artery. These findings were similar to the prior study dated May 09, 2019. Decision was made to admit patient to PCU on telemetry for possible stroke versus TIA with expressive aphasia and generalized body weakness. Principal Diagnosis Transient ischemic attack Discharge Exam Constitutional well developed and well nourished; no acute distress and no altered mental status ENMT external ear and nose normal, oropharynx normal Respiratory normal respiratory effort, lungs clear to auscultation Cardiovascular Rate/Rhythm: regular rate and regular rhythm Heart Sounds: normal S1 and normal S2; no murmur Vessels: posterior tibial pulses present and dorsalis pedis pulses present; no JVD Extremities: no edema Gastrointestinal (Abdomen) normal bowel sounds, soft, nontender, no hepatosplenomegaly Neurologic deep tendon reflexes 2+ bilaterally and moves all extremities; no focal motor deficits and not confused Speech / Cognition: normal speech, no expressive aphasia and no receptive aphasia Psychiatric Orientation: alert, oriented to person and oriented to place; + not oriented to time (slight confusion with time ) Discharge Data Allergies Allergy/AdvReac Type Severity Reaction Status Date / Time No Known Allergies Allergy Verified 09/05/19 19:05 Consultations [facility] - Murphy Medina MD PT, OT speech therapy Ordered Studies 1. CT head/brain - no acute process 2. CT angio neck - IMPRESSION: 1. Normal vertebral basilar system. 2. 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 3. 80% stenosis origin left external carotid artery. 4. These findings are similar to the prior study dated 05/09/2019. 3. CT angio head - IMPRESSION: 1. 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 2. Compensatory and/or augmentation of flow via a patent right posterior communicating vessel. 3. Minimal scattered plaque formation throughout the intracranial vasculature. 4. MRI brain with and without contrast x 2 on separate dates - NEGATIVE for acute or old strokes. Age-related atrophy and chronic small vessel change. 5. echocardiogram - * EF 65-70% * moderate LVH * mild MR * mild TR * mild pulmonary HTN * aortic valve sclerosis but no stenosis Hospital Course (1) TIA (transient ischemic attack): The patient's presenting symptoms of difficulty speaking, weakness, etc was likely due to a TIA. MRI x 2 of the brain (first on 09/05 and second on 09/08) did NOT show acute stroke. Old stroke was not seen either. The exact etiology of the TIA was uncertain but potentially due to vasospasm in the setting of markedly elevated blood pressure. Additional TIA work-up including telemetry, echocardiogram, and arterial imaging were negative (except for left-sided ICA stenosis which is chronic and felt NOT to be the cause of the TIA). Seen by neurology and they recommended ongoing use of aspirin and Plavix for secondary prevention at least in the short-term. Atorvastatin will be continued as well. Could consider a 30-day event monitor to rule out paroxysmal a.fib as the cause of her event. A loop recorder could also be considered. (2) Cognitive impairment: Family reports intermittent issues with cognitive function at home, some short-term memory dysfunction, etc. This appears to be a separate issue from her TIA events. TSH in 04/2019 was normal. Consider checking Vitamin B1, B12, RPR, etc as outpatient. Speech therapy recommended outpatient speech therapy services for cognitive function issues. Could also consider referral for neuropsychiatric testing. (3) Hypertensive emergency: Markedly elevated BPs at time of admission in the setting of expressive & receptive aphasia. Her BPs remained labile throughout her stay. In the 24 hours prior to discharge, however, her BPs were stable. She will continue on low-dose EBONY inhibitor as previous. (4) Hypertension: Controlled at discharge with lisinopril. (5) Acute kidney injury: Peak Cr 1.4, improving to 1.1 at discharge. EBONY was held around the time of the MARICARMEN; lisinopril was resumed once creatinine had normalized. (6) Chronic kidney disease, stage IV (severe): Baseline CrCl in the 20s. (7) Inflammation of right ankle joint: This occurred during her hospital stay and improved prior to discharge. Uric acid level was normal. x-rays did not show fracture or CPPD changes. Due to osteoarthritis? (8) Tension headache: Resolved with acetaminophen while hospitalized. Cannot rule out that headache was related to HTN. Sed rate was 34 making temporal arteritis highly unlikely. (9) HLD (hyperlipidemia): LDL was 43 on lipid profile. Continue atorvastatin 40mg p.o. nightly. (10) Diabetes mellitus type 2 in nonobese: HbA1C 6.8. Continue lantus 18 units daily. Continue humalog twice daily with meals. Control was excellent while hospitalized. (11) Carotid stenosis, left: 70% - chronic. Cont aspirin, plavix, statin. Nothing to do at this time. (12) Discharge planning issues: Patient and family desired the patient to go to rehab at a local SNF. Her insurance denied the request to go to SNF. I performed a "[id number]" with the registered medical transcriptionist at her insurance company and the request for SNF was still denied. The patient will return home with home health, home PT, etc. Family plans to stay with her for a few days as she transitions home. I discussed her discharge care plan with her PCP Dr Richard Swain. Ultimately the patient may need assisted living in the future if her cognitive impairment worsens. Total Time Total Time Spent Total Time Spent (In Minutes): 45 Total Time Includes: Examination of the Patient, Discharge Planning, Medication Reconciliation and Communication With Other Providers Discharge Plan Discharge Items Patient Disposition: Home - Home Health Services Reason For Visit: ALTERED MENTAL STATUS Discharge Diagnosis: TIA (transient ischemic attack) -- this is NOT a stroke but IS a risk factor for future stroke Activity: Resume your previous activity Non-emergency contact: Primary Care Provider Call non-emergency contact if: you have any medication questions, your symptoms worsen and you have a fever Follow-up/Referrals: Jez Swain, [Primary Care Provider] - 09/20/19 1:30 pm (Please, follow up at Dr. Swain's office on ThursdaySeptember 20 at 1:30 pm. *If you need to change the appointment, call the office at [phone].) Diet: Carb Consistent or DM2 Addtl Attending Provider Instructions: You were seen and treated for suspected TIA. TIA stands for transient ischemic attack. This is NOT the same thing as a stroke; however, TIA is a risk factor for future TIA and/or stroke. It is a neurological symptom or set of symptoms that occur and then resolve. You had 2 MRI tests of the brain both of which did NOT show stroke. You were seen by the neurologist who recommended starting a baby aspirin daily IN ADDITION to plavix. This is to help prevent another TIA and/or stroke. I am also recommending that you take an acid evp head of smg [employer] experience strategy as taking both aspirin with plavix can lead to stomach irritation and even ulcers. Take pantoprazole 40mg once daily. I sent this to [facility] for you. We found evidence of plaque build-up in the arteries of your neck (carotid arteries). Continue on your cholesterol medication and your aspirin with plavix. No surgery of the carotid is needed at this time. Follow-up -- see Dr Swain as scheduled. Additional instructions - Risk Factors for Stroke: You can reduce your chances of stroke by working with your medical provider to adopt a healthy lifestyle. Some specific ways to lower your chance of stroke are: * If you are a smoker, now is the time to stop smoking cigarettes * If you are diabetic, improve the control of your blood sugars * Avoid excessive amounts of alcohol * Control high blood pressure * Lose weight if you are overweight * Be sure to lead an active lifestyle * Eat a healthy diet low in salt, cholesterol and fat You should know about other risk factors for stroke that you are unable to control. These include: * Age 55 years or older * Male gender * Certain racial groups: , or / * Family History of Stroke, Mini stroke or Heart Attack * Sickle Cell Disease Who to Call and When: Medical Emergencies: Call 911 immediately if you experience any of the following warning signs and symptoms of Stroke: * Sudden numbness or weakness of the face, arm or leg, especially on one side of the body * Sudden confusion, trouble speaking or understanding * Sudden trouble seeing in one or both eyes * Sudden trouble walking, dizziness, loss of balance or coordination * Sudden severe headache with no cause Do not delay calling 911 if you experience any warning signs or symptoms of a stroke. Delay in seeking medical attention may affect what treatments can be given to you. . Pending Studies at Discharge: No Stand-Alone Forms: My [facility], Smoking Cessation Medications and DC Order Prescriptions: New aspirin [Ecotrin Low Strength] 81 mg Tablet,Delayed Release (Dr/Ec) 81 mg PO QAM Qty: 90 RF: 3 pantoprazole [Protonix] 40 mg tablet,delayed release (DR/EC) 40 mg PO DAILY Qty: 30 RF: 5 Continued clopidogrel 75 mg tablet 75 mg PO HS RF: 0 Lantus U-100 Insulin 100 unit/mL solution 18 units subcut HS Qty: 2 RF: 0 atorvastatin 40 mg tablet 40 mg PO HS Qty: 90 RF: 0 multivitamin with minerals [Multiple Vitamin-Minerals] tablet 1 tab PO QAM RF: 0 lisinopril 5 mg tablet 5 mg PO QAM RF: 0 (DME) insulin syringe-needle U-100 [BD Insulin Syringe Ultra-Fine] 0.5 mL 31 gauge x 5/16" syringe See Dose Instructions .ROUTE .MEDSUPPLY Qty: 10 RF: 0 (DME) OneTouch Ultra Blue Test Strip strip See Dose Instructions .ROUTE .MEDSUPPLY Qty: 10 RF: 0 (DME) pen needle, diabetic [ReliOn Pen [place]] 32 gauge x 5/32" needle See Dose Instructions .ROUTE .MEDSUPPLY Qty: 10 RF: 0 acetaminophen [Tylenol] 325 mg Tablet 325 mg PO Q6H PRN (Reason: Pain) RF: 0 insulin lispro [Humalog KwikPen Insulin] 100 unit/mL insulin pen 6 unit subcut BIDM RF: 0 Discontinued aspirin 325 mg Tablet 325 mg PO BID PRN (Reason: Headache) RF: 0 Discharge Orders: Discharge Order (Routine); Ordered 09/14/19 Ordered By: Tyree Quinteros Admission Data Admit Date/Time: 09/05/19 19:11 Attending Provider: Tyree Quinteros Admit Provider: Edison Turner Primary Care Provider: Jez Swain Other Providers: Mann Medina III Other Interventions: Discharge Summary Assessment (RN) Last Done: 09/14/19 16:56 DC Date/Time DO NOT enter until pt leaves facility: 09/14/19 18:14 Coding Level of Care Code D/C Day Management >30 mins Diagnoses TIA (transient ischemic attack) G45.9 Cognitive impairment R41.89 Hypertensive emergency I16.1 Hypertension I10 Hypertension type: unspecified Acute kidney injury N17.9 Chronic kidney disease, stage IV (severe) N18.4 Inflammation of right ankle joint M19.071 Tension headache G44.209 HLD (hyperlipidemia) E78.2 Hyperlipidemia type: mixed hyperlipidemia Diabetes mellitus type 2 in nonobese E11.9 Carotid stenosis, left I65.22 Discharge planning issues Z02.9
== END 2019-09-14 18:14 | disposition home health service (06) | DRG 69 ==
LOC: ED 17:17 → 2S 19:11 → SUATTDRO 19:11 → 2S 20:04 → 2N 09-08 14:37

== ENCOUNTER 2020-02-10 11:19 | Observation (INO) ==
[2020-02-10] MEDS ORDERED: OPTIRAY 320 125ml IV PRN (11:23)
--- NOTE | 2020-02-10 11:34 | Emergency Department Note ---
Impression & Plan Stroke-like symptoms, Confusion, Headache, Dehydration, Hypocalcemia, Hypomagnesemia ED Provider Note NAME: JAKE WINCHESTER AGE: 89 SEX: F : 1930 ARRIVES VIA: Ambulance INFORMANT: Patient, ED PROVIDER(S): Claudio Núñez MD Chief Complaint: Difficulty with speech, confusion HPI: Patient does present with the above complaints with concern for stroke alert as I did receive prehospital phone call about the patient's clinical status. Patient may have had a fall this morning. I did further discuss with t he patient upon arrival as well as the patient's daughter was present at bedside. This was after the patient returned from CAT scan. No concern for COVID at this time. Patient is prior history with some issues with hypertensive encephalopathy as well as UTI which may be causing her symptoms per the daughter. Patient denies any urinary symptoms. The patient is having some difficulty with speaking and confusion but the patient does not complain of any numbness tingling or focal weakness. No facial droop initially on exam. Patient does have mild nonspecific headache. No associated nausea or vomiting. ROS: See HPI for pertinent positives and negatives. A total of 10 systems were reviewed and otherwise negative. Past medical history: See below Surgical history: See below Social history: See below Physical Exam: GENERAL: Well appearing, well nourished, NAD, non-toxic. EYE EXAM: Normal conjunctiva. PERRL, no anisocoria and EOM's grossly intact w/o pain. [OROPHARYNX: Moist mucus membranes. Grossly normal dentition. [No exudate, posterior pharynx is clear, no tonsillar/uvular deviation or swelling. No cervical adenopathy, no submental, submandibular, or sublingual swelling.]] NECK: Supple, no nuchal rigidity, no adenopathy, non-tender. No signs of meningismus. [FROM of the neck with good chin to chest and neck extension. No stridor.] LUNGS: Clear to auscultation. Normal chest wall mechanics. HEART: NSR, no MRG. ABDOMEN: Abdomen soft, non-tender, normo-active bowel sounds, no masses, no rebound or guarding. BACK: No CVA TTP. SKIN: No rashes and no bruising. UPPER EXTREMITIES: Upper extremities are grossly normal. LOWER EXTREMITIES: Grossly normal, no edema. NEURO EXAM: Awake alert follows basic commands, slow deliberate speech intermittent confusion,, cranial nerves II-XII grossly intact, moves all 4 extremities on command w/o issue. No sensory deficits. Differential diagnoses: Infection, dehydration, metabolic abnormality, hypo/hyperglycemia, electrolyte disturbance, anemia, hypoxia, cardiac sources, intracerebral event, toxicologic, neurologic, as well as other pathologies. Course: Patient was seen and evaluated the bedside. Full history physical exam was performed. EKG: Indication: Confusion Sinus bradycardia, rate of 57, normal intervals, left axis deviation no obvious ST elevations. No significant change from comparison EKG September 05, 2019. Imaging Studies: Radiology results as stated below per my review in the radiologist's interpreta tion: CT head/brain wo con CT DOSE: 1125.10 mGy.cm HISTORY: Stroke evaluation TECHNIQUE: Multiaxial CT images of the head were performed without the use of intravenous contrast. A dose lowering technique was utilized adhering to the principles of ALARA. Comparison: None. Findings: The paranasal sinuses and mastoid air cells are clear. The calvarium and skull base are intact. The ventricles and sulci are within normal limits. There is no mass, hematoma, midline shift, or acute infarct. There is a very small right prefrontal subdural hygroma. There are no parenchymal hemorrhagic component. There is no midline shift. Impression: No acute process. ACT 112: Negative or not required by law. The above report was generated using voice recognition software. It may contain grammatical, syntax or spelling errors. Electronically signed by: Irving Bashir M.D. 02/10/2020 11:34 AM Dictated: 02/10/20 1133 Transcribed: 02/10/[address] angio head w con HISTORY: Stroke evaluation TECHNIQUE: Multiaxial CT angiography of the head was performed IV contrast: None. Maximum intensity projection images were also obtained. A dose lowering technique was utilized adhering to the principles of ALARA. COMPARISON: None. FINDINGS: There is no mass, hematoma, midline shift, or acute infarct. Visualized intracranial internal carotid arteries, distal vertebral arteries, and basilar artery are widely patent. There is no significant stenosis, occlusion, or aneurysm seen within the bilateral ACAs, MCAs, or digital sales assistant. IMPRESSION: No significant stenosis, occlusion, or aneurysm within the [place]. ACT 112: Negative or not required by law. The above report was generated using voice recognition software. It may contain grammatical, syntax or spelling errors. Electronically signed by: Irving Bashir M.D. 02/10/2020 11:40 AM Dictated: 02/10/201136 Transcribed: 02/10/[address] ANGIOGRAM OF THE NECK CLINICAL HISTORY: Strokelike symptoms. Expressive aphasia. COMPARISON STUDY: CT angiogram of the neck dated 09/05/2019. TECHNIQUE: Following the IV administration of 119 of Optiray 320, CT angiogram of the neck was performed from the aortic arch to the skull base. Images are reviewed in the axial, sagittal, and coronal planes. 3-D MIPS images are created and assessed. IV contrast was administered without complication. All measurements were calculated based on NASCET criteria. A dose lowering technique was utilized adhering to the principles of ALARA. FINDINGS: Thoracic aorta: There is atherosclerotic calcification of the thoracic aorta. Vi sualized portions of the thoracic aorta are normal in caliber. The aortic arch demonstrates standard 3-vessel anatomy. Right carotid arterial system: The right common carotid artery is widely patent, as are the right internal and external carotid arteries. Calcified plaque is noted in the carotid bulb. Left carotid arterial system: The left common carotid artery is widely patent. There is approximately 50% stenosis at the origin of the left internal carotid artery secondary to calcified plaque. The remainder of the left internal carotid artery is patent. There is also stenosis at the origin of the left external carotid artery. Vertebral arteries: The vertebral arteries are patent bilaterally and codominant in the neck. Subclavian arteries: Widely patent bilaterally. Intracranial vasculature: The visualized intracranial vessels at the skull base are patent. Jugular veins: Widely patent bilaterally. Brain parenchyma: The visualized brain parenchyma the skull base is within normal limits. Lung apices: Midline sternotomy wires are noted. Partially visualized upper lobe lung parenchyma appears clear. Soft tissues: The visualized pharyngeal soft tissues are normal in appearance noting angiographic phase technique. The oropharyngeal airway appears widely patent. Thyroid nodules measure up to 10 mm. The salivary glands are normal in appearance. No cervical lymphadenopathy is seen. Skeletal structures: The skeletal structures are osteopenic. The visualized calvarium at the skull base appears intact. The imaged cervical spine is maintained noting multilevel spondylosis. No lytic or blastic lesion is seen. IMPRESSION: 1. There is approximately 50% focal stenosis at the origin of the left internal carotid artery. 2. Stenosis is also seen at the origin of the left external carotid artery. 3. Otherwise unremarkable CT angiogram of the neck. ACT 112: Negative or not required by law. Electronically signed by: Abdoul Shanks M.D. 02/10/2020 11:45 AM Dictated: 02/10/20 1140 Transcribed: 02/10/20 1140 Cardiac monitoring: An order was placed for continuous cardiac monitoring. The monitor shows a rate of 54 with bradycardia rhythm. MDM: Patient was seen and evaluated bedside after stroke alert was initiated. The patient did go to CT and had CT of the head and CT angiograms of the head and neck. Blood work was obtained I did consult tele-stroke neurology at [facility] did speak with Dr. Lorenzo. Dr. Asher kindly evaluated the patient at the bedside via tele-stroke cart. CT of the head is unremarkable and CT angiography show persistent left-sided carotid stenosis of 50%. EKG is unremarkable. Patient has a normal white count and only very mild anemia with hemoglobin of 11.6. Kidney function is unremarkable albeit may be a little dry given BUN to creatinine ratio of 25. Troponin is tracely elevated at 0.08 but no obvious ischemic changes. The patient is already on Plavix. Patient did have some mildly low calcium and magnesium which were ordered for replacement. I did touch base with Dr. Lorenzo who recommended inpatient treatment, MRI of the brain, treatment of headache monitoring blood pressure and to obtain an EEG as he was stating that if the urine appears clean potentially these could be related to seizures. The patient was ordered for medication for her headache. He only recommended continuing the Plavix but no aspirin at this time. Patient does have a slightly weighted troponin but the patient does not complain of any chest pains and has nonischemic EKG. Patient was admitted to the medicine [facility] under Dr. Escalera. Critical Care: I have personally spent 35 minutes of critical care time in direct management of this patient. This includes bedside care, interpretation of diagnostic studies, and testing, discussion with consultants, patient, and family members, and other require inpatient management activities. This 35 minutes is in excess of all separately billable procedures. Past Med/Surg History Medical History Acute kidney injury Cognitive impairment Sciatica Surgical History History of bunionectomy History of cardiac catheterization 2008 - NO STENTS/ANGIOPLASTY --> CABG History of carpal tunnel release of both wrists History of cataract surgery History of wisdom tooth extraction S/P CABG x 4 2007 - FOLLOWS W/ DR. SALDAÑA Family History Sister Diabetes Dyslipidemia Sister Dyslipidemia Brother Heart disease Father , age 59 of lung cancer. 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 Feels Safe at Home: Yes Smoking Status: Never smoker Second Hand Exposure: Yes (50 YEARS AGO) ; Hx Alcohol Use: No Hx Substance Use: No Allergies Allergies Allergy/AdvReac Type Severity Reaction Status Date / Time No Known Allergies Allergy Verified 02/10/20 13:10 Home Meds Home Medications Medication Instructions Recorded Confirmed clopidogrel 75 mg tablet 75 mg PO HS tab 05/03/19 02/10/20 insulin syringe-needle U-100 0.5 #10 ea 05/03/19 01/19/20 mL 31 gauge x 5/16" multivitamin with minerals 1 tab PO QAM tab 05/03/19 02/10/20 pen needle, diabetic 32 gauge x #10 ea 05/03/19 01/19/20 5/32" acetaminophen [Tylenol] 325 mg PO Q6H PRN 08/05/19 02/10/20 insulin lispro [Humalog KwikPen 6 unit SUBCUT BIDM 08/07/19 02/10/20 Insulin] Previous Rx's Medication Instructions Recorded OneTouch Ultra Blue Test Strip #400 ea NS 10/24/19 Lantus U-100 Insulin 100 unit/mL 15 units SUBCUT HS #20 ml NS 12/28/19 subcutaneous solution atorvastatin 40 mg tablet 40 mg PO HS #90 tab 01/01/20 Results & Data (ED) Vital Signs Vital Signs - 24 hr 02/10/20 11:21 02/10/20 11:36 02/10/20 11:37 Temperature 36.9 C Temperature Source Oral Pulse Rate 73 75 71 Pulse Rate [Apical] Pulse Rhythm Regular Pulse Rhythm [Apical] Pulse Strength Normal Respiratory Rate 20 20 22 Respiratory Effort / Characteristics Non-Labored Spontaneous Respiratory Depth Normal Respiratory Pattern Blood Pressure 187/53 H 187/53 H Blood Pressure [Right Arm] Blood Pressure Mean 97 97 Blood Pressure Mean [Right Arm] Blood Pressure Position Lying Pulse Oximetry 97 Oxygen Delivery Method Room Air Sepsis Recent Fever Within 48 Hours No Sepsis Action Taken by Nursing No Action Required 02/10/20 11:52 02/10/20 12:00 02/10/20 12:01 Temperature Temperature Source Pulse Rate 68 76 Pulse Rate [Apical] Pulse Rhythm Pulse Rhythm [Apical] Pulse Strength Respiratory Rate 22 17 Respiratory Effort / Characteristics Respiratory Depth Respiratory Pattern Blood Pressure 157/60 H Blood Pressure [Right Arm] Blood Pressure Mean 63 Blood Pressure Mean [Right Arm] Blood Pressure Position Pulse Oximetry Oxygen Delivery Method Room Air Sepsis Recent Fever Within 48 Hours Sepsis Action Taken by Nursing 02/10/20 12:30 02/10/20 12:31 02/10/20 13:00 Temperature Temperature Source Pulse Rate 56 L Pulse Rate [Apical] 54 L Pulse Rhythm Pulse Rhythm [Apical] Regular Pulse Strength Respiratory Rate 15 16 18 Respiratory Effort / Characteristics Non-Labored Spontaneous Respiratory Depth Normal Respiratory Pattern Regular Blood Pressure 147/50 H Blood Pressure [Right Arm] 140/48 L Blood Pressure Mean 89 Blood Pressure Mean [Right Arm] 78 Blood Pressure Position Pulse Oximetry 97 95 Oxygen Delivery Method Room Air Room Air Sepsis Recent Fever Within 48 Hours Sepsis Action Taken by [facility] Medications Current Medication List: was personally reviewed by me Laboratory Data Attestation: I reviewed the patient's lab results. Result diagrams: 02/10/20 11:32 02/10/20 11:32 Lab Results 02/10/20 02/10/20 02/10/20 Range/Units 11:32 11:32 11:32 WBC 6.59 (4.8-10.8) K/uL RBC 3.90 L (4.2-5.4) M/uL Hgb 11.6 L (12.0-16.0) g/dL Hct 34.4 L (37-47) % MCV 88.2 (80-100) fL MCH 29.7 (25-34) pg MCHC 33.7 (32-36) g/dL RDW Std Deviation 44.0 (36.4-46.3) fL RDW Coeff of [place] 13.6 (11.5-14.5) % Plt Count 123 L (130-400) K/uL MPV 11.4 H (7.4-10.4) fL Immature Gran % (Auto) 0.5 % Neut % (Auto) 69.3 % Lymph % (Auto) 24.1 % Eddy % (Auto) 5.6 % Eos % (Auto) 0.3 % Baso % (Auto) 0.2 % Neut # (Auto) 4.57 (1.4-6.5) K/uL Lymph # (Auto) 1.59 (1.2-3.4) K/uL Eddy # (Auto) 0.37 (0.11-0.59) K/uL Eos # (Auto) 0.02 (0-0.5) K/uL Baso # (Auto) 0.01 (0-0.2) K/uL Immature Gran # (Auto) 0.03 H (0.00-0.02) K/uL PT 10.7 (9.0-12.0) Seconds INR 1.0 (0.9-1.1) APTT 26.0 (21.0-31.0) Seconds PTT Ratio 0.9 Sodium (136-145) mmol/L Potassium (3.5-5.1) mmol/L Chloride (98-107) mmol/L Carbon Dioxide (21-32) mmol/L Anion Gap (3-11) BUN (7-18) mg/dl Creatinine (0.6-1.2) mg/dl Est Cr Clr Drug Dosing Est GFR ( Amer) Est GFR (Non-Af Amer) BUN/Creatinine Ratio (10-20) Glucose (70-99) mg/dl POC Glucose (70-99) mg/dl Calcium (8.5-10.1) mg/dl Magnesium (1.8-2.4) mg/dl Total Bilirubin (0.2-1) mg/dl AST (15-37) U/L ALT (12-78) U/L Alkaline Phosphatase (45-117) U/L Troponin I (0-0.045) ng/ml Total Protein (6.4-8.2) gm/dl Albumin (3.4-5.0) gm/dl Globulin (2.5-4.0) gm/dl Albumin/Globulin Ratio (0.9-2) Blood Type O Negative Antibody Screen NEGATIVE 02/10/20 02/10/20 Range/Units 11:32 11:39 WBC (4.8-10.8) K/uL RBC (4.2-5.4) M/uL Hgb (12.0-16.0) g/dL Hct (37-47) % MCV (80-100) fL MCH (25-34) pg MCHC (32-36) g/dL RDW Std Deviation (36.4-46.3) fL RDW Coeff of [place] (11.5-14.5) % Plt Count (130-400) K/uL MPV (7.4-10.4) fL Immature Gran % (Auto) % Neut % (Auto) % Lymph % (Auto) % Eddy % (Auto) % Eos % (Auto) % Baso % (Auto) % Neut # (Auto) (1.4-6.5) K/uL Lymph # (Auto) (1.2-3.4) K/uL Eddy # (Auto) (0.11-0.59) K/uL Eos # (Auto) (0-0.5) K/uL Baso # (Auto) (0-0.2) K/uL Immature Gran # (Auto) (0.00-0.02) K/uL PT (9.0-12.0) Seconds INR (0.9-1.1) APTT (21.0-31.0) Seconds PTT Ratio Sodium 133 L (136-145) mmol/L Potassium 5.1 (3.5-5.1) mmol/L Chloride 103 (98-107) mmol/L Carbon Dioxide 23 (21-32) mmol/L Anion Gap 7.0 (3-11) BUN 31 H (7-18) mg/dl Creatinine 1.20 (0.6-1.2) mg/dl Est Cr Clr Drug Dosing Not Reportable Est GFR ( Amer) 46.4 Est GFR (Non-Af Amer) 40.0 BUN/Creatinine Ratio 25.4 H (10-20) Glucose 225 H (70-99) mg/dl POC Glucose 239 H (70-99) mg/dl Calcium 8.0 L (8.5-10.1) mg/dl Magnesium 1.7 L (1.8-2.4) mg/dl Total Bilirubin 0.9 (0.2-1) mg/dl AST 26 (15-37) U/L ALT 31 (12-78) U/L Alkaline Phosphatase 87 (45-117) U/L Troponin I 0.082 H* (0-0.045) ng/ml Total Protein 6.7 (6.4-8.2) gm/dl Albumin 3.3 L (3.4-5.0) gm/dl Globulin 3.4 (2.5-4.0) gm/dl Albumin/Globulin Ratio 1.0 (0.9-2) Blood Type Antibody Screen Administered Medications Magnesium Sulfate/Dextrose (Magnesium Sulfate / D5w) 1 gm in 100 mls @ 100 mls/hr IV NOW STA Stop: 02/10/20 13:43 Last Admin: 02/10/20 13:18 Dose: 100 mls/hr Documented by: [id number] Ioversol (Optiray 320 125ml) 119 ml IV ONCE PRN PRN Reason: Interaction Checking Stop: 02/14/20 11:22 Last Admin: 02/10/20 11:24 Dose: 119 ml Documented by: [id number] Discontinued Medications Acetaminophen (Ofirmev) 65 mls @ 200 mls/hr IV NOW ONE; Protocol Stop: 02/10/20 13:04 Last Admin: 02/10/20 13:01 Dose: 200 mls/hr Documented by: [id number] Calcium Gluconate 2,000 mg/ (Sodium Chloride) 70 mls @ 280 mls/hr IV NOW STA Stop: 02/10/20 13:20 Last Admin: 02/10/20 13:18 Dose: 280 mls/hr Documented by: [id number] Discharge Plan Visit Data Chief Complaint: Stroke/CVA Symptoms Stated Complaint: Stroke Alert ED Provider: Claudio Núñez Discharge Problem: Stroke-like symptoms, Confusion, Headache, Dehydration, Hypocalcemia, Hypomagnesemia Forms Stand Alone Forms: My Dispop Prescriptions Prescriptions: No Action (DME) OneTouch Ultra Blue Test Strip Strip See Dose Instructions .ROUTE .MEDSUPPLY Qty: 400 RF: 3 Lantus U-100 Insulin 100 unit/mL solution 15 units subcut HS Qty: 20 RF: 3 atorvastatin 40 mg tablet 40 mg PO HS Qty: 90 RF: 3 clopidogrel 75 mg tablet 75 mg PO HS RF: 0 multivitamin with minerals [Multiple Vitamin-Minerals] tablet 1 tab PO QAM RF: 0 (DME) insulin syringe-needle U-100 [BD Insulin Syringe Ultra-Fine] 0.5 mL 31 gauge x 5/16" syringe See Dose Instructions .ROUTE .MEDSUPPLY Qty: 10 RF: 0 (DME) pen needle, diabetic [ReliOn Pen [place]] 32 gauge x 5/32" needle See Dose Instructions .ROUTE .MEDSUPPLY Qty: 10 RF: 0 acetaminophen [Tylenol] 325 mg Tablet 325 mg PO Q6H PRN (Reason: Pain) RF: 0 insulin lispro [Humalog KwikPen Insulin] 100 unit/mL insulin pen 6 unit subcut BIDM RF: 0 Discharge Problem: Headache Qualifiers: Headache type: unspecified Headache chronicity pattern: acute headache Intractability: not intractable Qualified Code(s): R51 - Headache
--- NOTE | 2020-02-10 11:42 | CT Scan Report ---
CT angio head w con HISTORY: Stroke evaluation TECHNIQUE: Multiaxial CT angiography of the head was performed IV contrast: None. Maximum intensit y projection images were also obtained. A dose lowering technique was utilized adhering to the princ i[place]. COMPARISON: None. FINDINGS: There is no mass, hematoma, midline shift, or acute infarct. Visualized intracranial internal audit senior manager al carotid arteries, distal vertebral arteries, and basilar artery are widely patent. There is no sig nificant stenosis, occlusion, or aneurysm seen within the bilateral ACAs, MCAs, or stretching press operator. IMPRESSION: No significant stenosis, occlusion, or aneurysm within the [place]. ACT 112: Negative or not required by law. The above report was generated using voice recognition software. It may contain grammatical, syntax or spelling errors. Electronically signed by: Irving Bashir M.D. 02/10/2020 11:40 AM
--- NOTE | 2020-02-10 11:47 | CT Scan Report ---
CT ANGIOGRAM OF THE NECK CLINICAL HISTORY: Strokelike symptoms. Expressive aphasia. COMPARISON STUDY: CT angiogram of the neck dated 09/05/2019. TECHNIQUE: Following the IV administration of 119 of Optiray 320, CT angiogram of the neck was perfor med from the aortic arch to the skull base. Images are reviewed in the axial, sagittal, and coronal p lanes. 3-D MIPS images are created and assessed. IV contrast was administered without complication. A ll measurements were calculated based on NASCET criteria. A dose lowering technique was utilized adh ering to the principles of ALARA. FINDINGS: Thoracic aorta: There is atherosclerotic calcification of the thoracic aorta. Visualized portions of the thoracic aorta are normal in caliber. The aortic arch demonstrates standard 3-vessel anatomy. Right carotid arterial system: The right common carotid artery is widely patent, as are the right int ernal and external carotid arteries. Calcified plaque is noted in the carotid bulb. Left carotid arterial system: The left common carotid artery is widely patent. There is approximately 50% stenosis at the origin of the left internal carotid artery secondary to calcified plaque. The re mainder of the left internal carotid artery is patent. There is also stenosis at the origin of the le ft external carotid artery. Vertebral arteries: The vertebral arteries are patent bilaterally and codominant in the neck. Subclavian arteries: Widely patent bilaterally. Intracranial vasculature: The visualized intracranial vessels at the skull base are patent. Jugular veins: Widely patent bilaterally. Brain parenchyma: The visualized brain parenchyma the skull base is within normal limits. Lung apices: Midline sternotomy wires are noted. Partially visualized upper lobe lung parenchyma appe ars clear. Soft tissues: The visualized pharyngeal soft tissues are normal in appearance noting angiographic pha se technique. The oropharyngeal airway appears widely patent. Thyroid nodules measure up to 10 mm. Th e salivary glands are normal in appearance. No cervical lymphadenopathy is seen. Skeletal structures: The skeletal structures are osteopenic. The visualized calvarium at the skull ba se appears intact. The imaged cervical spine is maintained noting multilevel spondylosis. No lytic or blastic lesion is seen. IMPRESSION: 1. There is approximately 50% focal stenosis at the origin of the left internal carotid artery. 2. Stenosis is also seen at the origin of the left external carotid artery. 3. Otherwise unremarkable CT angiogram of the neck. ACT 112: Negative or not required by law. Electronically signed by: Abdoul Shanks M.D. 02/10/2020 11:45 AM
[2020-02-10 12:02] LABS: Basophils # (auto) 0.01 K/uL (0-0.2); Basophils % (auto) 0.2 %; Eosinophils # (auto) 0.02 K/uL (0-0.5); Eosinophils % (auto) 0.3 %; Hematocrit (blood only) 34.4 % (37-47); Hemoglobin 11.6 g/dL (12.0-16.0); Immature Granulocytes # (auto) 0.03 K/uL (0.00-0.02); Immature Granulocytes % (auto) 0.5 %; Lymphocytes # (auto) 1.59 K/uL (1.2-3.4); Lymphocytes % (auto) 24.1 %; Mean Corpuscular Hemoglobin 29.7 pg (25-34); Mean Corpuscular Hgb Conc 33.7 g/dL (32-36); Mean Corpuscular Volume 88.2 fL (80-100); Mean Platelet Volume 11.4 fL (7.4-10.4); Monocytes # (auto) 0.37 K/uL (0.11-0.59); Monocytes % (auto) 5.6 %; Neutrophils # (auto) 4.57 K/uL (1.4-6.5); Neutrophils % (auto) 69.3 %; Platelet Count 123 K/uL (130-400); RDW Coefficient of Variation 13.6 % (11.5-14.5); White Blood Count 6.59 K/uL (4.8-10.8)
[2020-02-10 12:13] LABS: Partial Thromboplastin Ratio 0.9; Prothrombin Time 10.7 Seconds (9.0-12.0)
[2020-02-10 12:21] LABS: Alanine Aminotransferase 31 U/L (12-78); Albumin Level 3.3 gm/dl (3.4-5.0); Aspartate Aminotransferase 26 U/L (15-37); BUN Creatinine Ratio 25.4 (10-20); Blood Urea Nitrogen 31 mg/dl (7-18); Carbon Dioxide 23 mmol/L (21-32); Chloride 103 mmol/L (98-107); Est GFR (African American) 46.4; Glucose 225 mg/dl (70-99); Magnesium 1.7 mg/dl (1.8-2.4); Potassium 5.1 mmol/L (3.5-5.1); Sodium 133 mmol/L (136-145)
[2020-02-10 12:41] LABS: Alkaline Phosphatase 87 U/L (45-117); Bilirubin,Total 0.9 mg/dl (0.2-1); Globulin 3.4 gm/dl (2.5-4.0); Total Protein 6.7 gm/dl (6.4-8.2); Troponin I 0.082 ng/ml (0-0.045)
[2020-02-10] MEDS ORDERED: CALCIUM GLUCONATE 10% 10 ML VIAL IV STA (12:43)
[2020-02-10] MEDS ORDERED: MAGNESIUM SULFATE / D5W 1 GM/100 ML BAG IV STA (12:44)
[2020-02-10] MEDS ORDERED: ACETAMINOPHEN 65 ML IV ONE (12:45)
[2020-02-10] MEDS ORDERED: CALCIUM GLUCONATE 10% 2,000 MG in SODIUM CHLORIDE 0.9% 50 ML IV STA (13:06)
--- NOTE | 2020-02-10 14:54 | History & Physical Report ---
Date of Service February 10, 2020 Assessment & Plan (1) Stroke-like symptoms: Admit med tele Telestroke cart in the ED with tertiary care neurologist - recommended MRI, treatment of headache, monitoring blood pressure and possible EEG to rule out seizure as source of problems CT head negative, CTA head negative, CTA neck with 50% left ICA focal stenosis CBC, CMP, lipid panel am Continue home Plavix, statin Consult neurology PT/OT/Speech Urine with leuk esterase, WBCs, and bacteria. Does have some epithelial cells. Patient does report some urinary hesitancy. Will culture urine - no leukocytosis, no fevers, no dysuria (2) Hypertension: History of hypertensive encephalopathy If MRI brain is negative for stroke, will more aggressively treat htn to relieve that as a source of stroke like symptoms although blood pressures are urgently high - systolic 140s-160s this afternoon (3) Spinal stenosis of lumbar region: Sees Dr. Davis outpatient for pain management (4) Carotid stenosis, left: As seen on CTA and has been noted since 05/09/2019 (5) Dyslipidemia: Continue atorvastatin (6) Elevated troponin: Troponin 0.82, will trend No s/s of ischemia on EKG, no ischemic symptoms (7) Thrombocytopenia: Platelets 123,000 No history of tick bites or other s/s of tick related illness. Will trend (8) Hypomagnesemia: Replaced in the ED (9) Hypocalcemia: Replaced in the ED (10) Diabetes mellitus type II, controlled: Last A1c August 6.8 BSGs AC & HS consult pharmacy glycemic management (11) DVT prophylaxis: SCDs, heparin subq History of Present Illness Ms. Urbano woke up feeling unwell, unable to get her breakfast together and so pressed her medical alert button. Her last known well was last night at 9 pm per her son. She has a headache, slurred speech with aphasia. We are able to talk with yes and no questions but she has difficulty formulating sentences. Her daughter was bedside and also provided history. Patient was here in September with hypertension associated with encephalopathy. She denies any aches, chills, fevers, sob, chest pain, palpitations, n/v/d, constipation. No dysuria but she has been experiencing new urinary hesitancy. Pmhx: htn, DMII, sciatica Social: never smoker, no alcohol, lives alone Family: non contributory due to advanced age Primary Care Provider: Jez Swain DO Allergies Allergy/AdvReac Type Severity Reaction Status Date / Time No Known Allergies Allergy Verified 02/10/20 13:10 Home Medications Home Medications Medication Instructions Recorded Confirmed Type clopidogrel 75 mg tablet 75 mg PO HS tab 05/03/19 02/10/20 History insulin syringe-needle U-100 0.5 #10 ea 05/03/19 01/19/20 History mL 31 gauge x 16" multivitamin with minerals 1 tab PO QAM tab 05/03/19 02/10/20 History pen needle, diabetic 32 gauge x #10 ea 05/03/19 01/19/20 History 5/32" acetaminophen [Tylenol] 325 mg PO Q6H PRN 08/05/19 02/10/20 History insulin lispro [Humalog KwikPen 6 unit SUBCUT BIDM 08/07/19 02/10/20 History Insulin] OneTouch Ultra Blue Test Strip #400 ea NS 10/24/19 01/19/20 Rx Lantus U-100 Insulin 100 unit/mL 15 units SUBCUT HS #20 ml NS 12/28/19 02/10/20 Rx subcutaneous solution atorvastatin 40 mg tablet 40 mg PO HS #90 tab 01/01/20 02/10/20 Rx Past Med/Surg History Medical History Acute kidney injury Cognitive impairment Sciatica Surgical History History of bunionectomy History of cardiac catheterization 2007 - NO STENTS/ANGIOPLASTY --> CABG History of carpal tunnel release of both wrists History of cataract surgery History of wisdom tooth extraction S/P CABG x 4 2007 - FOLLOWS W/ DR. SALDAÑA Family History Sister Diabetes Dyslipidemia Sister Dyslipidemia Brother Heart disease Father , age 59 of lung cancer. 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 Feels Safe at Home: Yes Safety Concerns: Feels Safe At This Time Smoking Status: Unknown if ever smoked Hx Alcohol Use: No Hx Substance Use: No Review of Systems Review of Systems: All systems reviewed & are unremarkable except as noted in HPI & below Physical Exam Physical Exam: General: no distress Eyes: normal inspection, PERLL Respiratory: chest non tender, clear to auscultation, normal breath sounds, no respiratory distress, no accessory muscle use Cardiac: regular rate and rhythm, no rub or gallop, no murmur, no edema, no jvd GI/: active bowel sounds, no abd pain or tenderness, soft, non distended Extremities: normal range of motion, normal strength, non tender Neuro/Psych: alert and oriented, normal mood and affect, mild right arm drift, right facial droop, moderate aphasia and slurred speech, other hop picker intact Skin: normal color, dry Results & Data Results & Data ([facility]) Vital Signs (Past 12 Hours) Vital Signs Temp Pulse Pulse Resp BP BP Pulse Ox 02/10/20 13:30 47 L 18 144/57 H 96 02/10/20 13:00 54 L 18 140/48 L 95 02/10/20 12:31 56 L 16 147/50 H 97 02/10/20 12:30 15 02/10/20 12:01 76 17 157/60 H 02/10/20 12:00 68 22 02/10/20 11:37 71 22 187/53 H 02/10/20 11:36 75 20 02/10/20 11:21 36.9 C 73 20 187/53 H 97 Code Status & VTE Plan Code Status DNR Supervising Physician Co-Signing Physician Notes I supervised Deepali Mullen NP on this patient's care. I examined the patient today independently of her. I discussed the plan of care with her with the plan being as written in her note except for any following changes/exceptions: None. Word-finding is already improving. Ddx included TIA vs. complex migraine. MRI brain showed no stroke. - Will follow with what neurology recommends. PG Care Time/CCT Total # of Minutes Spent Total Time Spent with Patient: Total time spent is greater than 50% in coordination of care (as documented) at patient's floor/unit and/or counseling patient: Coding Level of Care Code 55750 Initial Inpt Care Lvl 3 Diagnoses Stroke-like symptoms R29.90 Hypertension I10 Hypertension type: unspecified Spinal stenosis of lumbar region M48.061 Carotid stenosis, left I65.22 Dyslipidemia E78.5 Elevated troponin R79.89 Thrombocytopenia D69.6 Hypomagnesemia E83.42 Hypocalcemia E83.51 Diabetes mellitus type II, controlled E11.9 DVT prophylaxis Z29.9 (1) Hypertension Hypertension type: unspecified Qualified Code(s): I10 - Essential (primary) hypertension
--- NOTE | 2020-02-10 15:13 | Magnetic Resonance Report ---
Brain MRI WITHOUT CONTRAST HISTORY: expressive aphasia TECHNIQUE: Multiplanar multisequence MRI of the brain was performed without the use of contrast. COMPARISON STUDY: Head CT 02/10/2020. Brain MRI 09/05/2019. FINDINGS: Mild motion artifact. There is no mass, hematoma, midline shift, or acute infarct. The para nasal sinuses are clear. The mastoid air cells are clear. The ventricles and sulci demonstrate mild a ge-related involutional changes. Scattered foci of T2 hyperintensity seen within the periventricular and subcortical white matter are nonspecific but suggestive of mild microvascular ischemic changes. T he major vascular flow voids at the skull base are well-maintained. IMPRESSION: No significant change compared to the prior study. No acute intracranial abnormality. ACT 112: Negative or not required by law. Electronically signed by: Hardik Navarrete M.D. 02/10/2020 3:12 PM
--- NOTE | 2020-02-10 15:55 | Electrocardiogram Report ---
Test Reason : Blood Pressure : / mmHG Vent. Rate : 057 BPM Atrial Rate : 057 BPM P-R Int : 138 ms QRS Dur : 098 ms QT Int : 454 ms P-R-T Axes : 072 -54 073 degrees QTc Int : 441 ms Poor data quality, interpretation may be adversely affected Sinus bradycardia Possible Left atrial enlargement Left axis deviation Septal infarct (cited on or before 28-NOV-2017) Abnormal ECG When compared with ECG of 05-SEP-2019 17:37, No significant change was found Confirmed by Edward Syed ([id number]) on 02/10/2020 3:55:00 PM Referred By: REFERRED SELF Confirmed By:Edward Syed
[2020-02-10] MEDS ORDERED: PHARMACIST DISCHARGE MED REC CONSULT PRN (16:22)
[2020-02-10] MEDS ORDERED: GLUCOSE 10 TABS/TUBE PO PRN (16:30)
[2020-02-10] MEDS ORDERED: GLUCOSE 40% GEL 15 GM TUBE PO PRN (16:30)
[2020-02-10] MEDS ORDERED: GLUCAGON FOR INJ 1 MG VIAL IM PRN (16:30)
[2020-02-10] MEDS ORDERED: DEXTROSE 50% 50 ML SYRINGE IV PRN (16:30)
[2020-02-10] MEDS ORDERED: CARBOHYDRATES FOR HYPOGLYCEMIA PO PRN (16:30)
[2020-02-10] MEDS ORDERED: PHARMACY GLYCEMIC MGMT CONSULT PRN (16:32)
[2020-02-10] MEDS: ACETAMINOPHEN 325 MG TAB PO PRN (17:57)
[2020-02-10] MEDS: INSULIN ASPART 100 UNITS/ML 3 ML PEN SC SCH ×2 (17:59→23:29)
[2020-02-10 19:18] LABS: Appearance Urine Cloudy (Clear); Bacteria Urine Automated 1+ (Negative); Bilirubin Urine Negative (Negative); Blood Urine 1+ (Negative); Color Urine Yellow; Epithelial Cell Urine Auto >30 /lpf (0-5); Glucose Urine UA Trace (Negative); Ketones Urine Negative (Negative); Leukocyte Esterase Urine Trace (Negative); Nitrite Urine Negative (Negative); Specific Gravity Urine 1.031 (1.000-1.030); Urobilinogen Urine Negative (Negative); pH Urine 7.5 (4.5-7.5)
[2020-02-10 19:20] LABS: Protein Urine Trace (Negative)
[2020-02-10 19:22] LABS: Sulfosalicylic Acid Urine Positive (Negative)
[2020-02-10] MEDS ORDERED: INSULIN GLARGINE SOLOSTAR 100 UNITS/ML 3 ML PEN SC SCH (21:00)
[2020-02-10] MEDS: CLOPIDOGREL BISULFATE 75 MG TAB PO SCH (21:14)
[2020-02-10] MEDS: HEPARIN SOD 5,000 UNIT/0.5 ML VIAL SQ SCH (21:14)
[2020-02-10] MEDS: ATORVASTATIN 40 MG TAB PO SCH (21:14)
[2020-02-11 08:01] LABS: Hematocrit (blood only) 34.3 % (37-47); Hemoglobin 11.3 g/dL (12.0-16.0); Mean Corpuscular Hemoglobin 29.9 pg (25-34); Mean Corpuscular Hgb Conc 32.9 g/dL (32-36); Mean Corpuscular Volume 90.7 fL (80-100); Mean Platelet Volume 11.8 fL (7.4-10.4); Platelet Count 130 K/uL (130-400); RDW Coefficient of Variation 13.8 % (11.5-14.5); RDW Standard Deviation 45.8 fL (36.4-46.3); Red Blood Count 3.78 M/uL (4.2-5.4)
[2020-02-11] MEDS: LACTATED RINGER'S 1,000 ML IV SCH ×2 (08:12→14:16)
[2020-02-11] MEDS: INSULIN ASPART 100 UNITS/ML 3 ML PEN SC SCH ×4 (08:14→21:15)
[2020-02-11] MEDS: HEPARIN SOD 5,000 UNIT/0.5 ML VIAL SQ SCH ×2 (08:15→21:15)
[2020-02-11 08:28] LABS: Basophils # (auto) 0.03 K/uL (0-0.2); Basophils % (auto) 0.4 %; Eosinophils # (auto) 0.24 K/uL (0-0.5); Eosinophils % (auto) 2.9 %; Immature Granulocytes # (auto) 0.01 K/uL (0.00-0.02); Immature Granulocytes % (auto) 0.1 %; Lymphocytes # (auto) 4.62 K/uL (1.2-3.4); Lymphocytes % (auto) 56.3 %; Monocytes # (auto) 0.44 K/uL (0.11-0.59); Monocytes % (auto) 5.4 %; Neutrophils # (auto) 2.86 K/uL (1.4-6.5); Neutrophils % (auto) 34.9 %
[2020-02-11 08:36] LABS: BUN Creatinine Ratio 24.7 (10-20); Calcium 8.9 mg/dl (8.5-10.1); Est GFR (African American) 28.4; Est GFR (Non-African American) 24.5; Potassium 5.2 mmol/L (3.5-5.1)
[2020-02-11] MEDS ORDERED: LACTATED RINGER'S 500 ML IV ONE (09:20)
--- NOTE | 2020-02-11 10:26 | Neurology Consultation ---
Date of Consultation February 11, 2020 Assessment & Plan (1) Diabetes mellitus type II, controlled: (2) Thrombocytopenia: (3) Hypertension: (4) Stroke-like symptoms: Leda Urbano is an 89 yo woman w/ PMH of DM, HLD, CAD s/p CABG, lumbar spinal stenosis, h/o recurrent TIAs and known mild L ICA stenosis who p/t [facility] after acute onset of confusion and word finding difficulty. # Possible TIA: headache is not uncommon prior to TIAs. Leda'jessica BP was much more elevated at admission than where it usually is, so cannot fully rule out hypertensive urgency. Symptom localization: L MCA territory Stroke mechanism: vessel to vessel embolus vs flow failure Stroke WorkUp: - CT head: no hemorrhage or hypodensity, mild generalized atrophy with mild small vessel disease. 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, diminished caliber of the basilar artery, mild to moderate left ICA stenosis, no other LVO, high-grade stenosis or aneurysm noted - MRI brain: no acute infarct, mild generalized atrophy with small vessel disease, stable from prior - TTE: pending - Telemetry: sinus bradycardia - A1c: pending - FLP: 50 - Troponin: 0.08 Stroke Management: - Continuous cardiac monitoring, consider Holter monitor as outpatient if telemetry here unrevealing - Vitals, Neurochecks, NIHSS per unit routine - BP parameters: SBP CAP 180, restart home anti-hypertensives when safe given current hypotension - Complete TIA workup with TTE without bubble, A1c, EEG - Consult speech, PT, OT for supportive management - Will funeral pre arrangement counselor concerning stroke education, smoking cessation, healthy diet, physical activity, weight loss - Follow up with PCP for assistance with outpatient goals (BP <135/85, LDL <70, A1c <7) - Follow up in neurology clinic in 6-8 weeks (can see SUJATHA Landers again) - r/o possible UTI given UA and new hypotension Secondary Stroke Prevention: - Antiplatelet: plavix 75mg po daily - Anticoagulation: Not indicated at this time - Statin: Atorvastatin 40mg daily HTN: - BP parameters, as above - Restart home medications with goal of lowering BP to normotension over next 3- 4 days FEN/GI: - Diet: Cardiac HH diet and PO meds given absence of bulbar signs or symptoms - Monitor lytes and replete PRN Glucose Control: - Sliding scale insulin and accuchecks per primary team to avoid hyperglycemia Thank you for this interesting consult. Plan of care was discussed with primary team. Please call with any questions. (5) Headache: History of Present Illness Attending Physician: Nathen Torres MD History of Present Illness Leda Urbano is an 89 yo woman w/ PMH of DM, HLD, CAD s/p CABG, lumbar spinal stenosis, h/o recurrent TIAs and known mild L ICA stenosis who p/t [facility] after acute onset of confusion and word finding difficulty. 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 In the ED, patient afebrile, BP 187/53, heart rate 73, respiratory rate 20, satting 97% on room air. Labs notable for WBC 6.29, hemoglobin 11.6, platelets 123, INR 1, sodium 133, potassium 5.1, BUN 31, creatinine 1.2, glucose 225, mildly low calcium 8.0, mildly low magnesium 1.7, LFTs within normal, troponin mildly elevated 0.08, LDL 50, recent A1c 6.8. UA positive for possible infection. Independently reviewed imaging. CT head showed no hemorrhage or hypodensity, mild generalized atrophy with mild small vessel disease. 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 MRI brain showed no acute infarct, mild generalized atrophy with small vessel disease, stable from prior. On examination today, she reports that she was playing with a possible on the evening of 02/09/2020 when she had acute onset of headache followed by slurred speech and word finding difficulty. She decided to lay down and go to bed and noticed that symptoms were still present and even worse when she woke up in the morning. She pressed her emergency alert button and was transferred to the hospital. She reports that all symptoms have resolved since she is in the hospital but has noticed that her blood pressure is much lower than it usually is. She is worried that she had a possible TIA. Reports that current symptoms are very similar to the ones that she had back in August 2019 except for the fact that those lasted for 3 days and current symptoms have resolved within 1 day. Denies any prior history of headaches in the past. Denies any recent i llnesses or medication changes. Reports that her blood pressures are usually in the 140s 150s systolic. Allergies Allergy/AdvReac Type Severity Reaction Status Date / Time No Known Allergies Allergy Verified 02/10/20 13:10 Home Medications Home Medications Medication Instructions Recorded Confirmed Type clopidogrel 75 mg tablet 75 mg PO HS tab 05/03/19 02/10/20 History insulin syringe-needle U-100 0.5 #10 ea 05/03/19 01/19/20 History mL 31 gauge x 12/30" multivitamin with minerals 1 tab PO QAM tab 05/03/19 02/10/20 History pen needle, diabetic 32 gauge x #10 ea 05/03/19 01/19/20 History " acetaminophen [Tylenol] 325 mg PO Q6H PRN 08/05/19 02/10/20 History insulin lispro [Humalog KwikPen 6 unit SUBCUT BIDM 08/07/19 02/10/20 History Insulin] OneTouch Ultra Blue Test Strip #400 ea NS 10/24/19 01/19/20 Rx Lantus U-100 Insulin 100 unit/mL 15 units SUBCUT HS #20 ml NS 12/28/19 02/10/20 Rx subcutaneous solution atorvastatin 40 mg tablet 40 mg PO HS #90 tab 01/01/20 02/10/20 Rx Patient History Medical History Acute kidney injury Cognitive impairment Sciatica Surgical History History of bunionectomy History of cardiac catheterization 2007 - NO STENTS/ANGIOPLASTY --> CABG History of carpal tunnel release of both wrists History of cataract surgery History of wisdom tooth extraction S/P CABG x 4 2007 - FOLLOWS W/ DR. SALDAÑA Family History Sister Diabetes Dyslipidemia Sister Dyslipidemia Brother Heart disease Father , age 59 of lung cancer. 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 Exam (Neuro) Physical Exam: General Exam: GEN: NAD, sitting in chair. HEENT: No conjunctival injection, no rhinorrhea. CV: RRR, no peripheral edema PULM: Nonlabored respirations on room air. Neuro Exam: MS: Awake and Alert. Oriented to person, place, and date. Speech fluent and appropriate without dysarthria or paraphasic errors. Language intact including naming, comprehension, repetition. Cognition and memory grossly intact. Attention intact. No neglect. CN: Visual guthrie full. No extinction to double simultaneous stimuli. Unable to visualize fundi on fundoscopic exam. PERRLA OU. EOMI without nystagmus. Facial sensation intact to LT. Facial muscles full and symmetric. Hearing intact to conversation. Uvula midline with symmetric palatal elevation. Shoulder shrug normal. Tongue midline. MOTOR: Normal bulk and tone. No pronator drift. BUE strength 5/5 at deltoids, biceps, triceps, wrist flexors and extensors, and hand grasp bilaterally. BLE strength 5/5 at iliopsoas, hamstrings, quadriceps, tibialis anterior, and gastrocnemius bilaterally. REFLEXES: 1+ at biceps, triceps, brachioradialis, 1+ patella and absent Achilles bilaterally. Flexor plantar responses bilaterally. SENSORY: Intact to LT without extinction to double simultaneous stimuli. Vibration intact throughout. COORDINATION: No dysmetria or ataxia on [id number] and [id number] bilaterally. Normal Amilcar bilaterally. GAIT: deferred, requires walker to ambulate Results & Data ([facility]) Vital Signs (Past 12 Hours) Vital Signs Temp Pulse Pulse Resp BP Pulse Ox 02/11/20 07:37 36.7 C 54 L 16 93/46 L 95 02/11/20 07:23 49 L 02/11/20 03:15 36.8 C 48 L 16 119/58 L 95 02/10/20 23:07 36.6 C 51 L 18 94/55 L 96 PG Care Time/CCT Total # of Minutes Spent Total Time Spent with Patient: Total time spent is greater than 50% in coordination of care (as documented) at patient's floor/unit and/or counseling patient: Coding Level of Care Code 89577 Initial Inpt Care Lvl 3 Diagnoses Diabetes mellitus type II, controlled E11.9 Thrombocytopenia D69.6 Hypertension I10 Hypertension type: unspecified Stroke-like symptoms R29.90 Headache R51 Headache chronicity pattern: acute headache Headache type: unspecified Intractability: not intractable (1) Hypertension Hypertension type: unspecified Qualified Code(s): I10 - Essential (primary) hypertension (2) Headache Headache chronicity pattern: acute headache Headache type: unspecified Intractability: not intractable Qualified Code(s): R51 - Headache
--- NOTE | 2020-02-11 10:48 | Pharmacy Report ---
Pharmacy Glycemic Short Note 2 - Date of Service February 11, 2020 - Glycemic Short BSG Results (Last 24 hours): 02/10/20 02/10/20 02/10/20 11:32 11:39 17:08 Glucose 225 H POC Glucose 239 H 155 H 02/10/20 02/10/20 02/11/20 21:03 23:28 07:27 Glucose POC Glucose 162 H 132 H 96 02/11/20 07:32 Glucose 86 POC Glucose OUTPATIENT ANTIDIABETIC REGIMEN: * Lantus 15 units SQ HS * Humalog 6 units SQ BIDM * A1c = 6.8% on 09/05/19 - reordered for 02/11 per protocol since this value is outdated ASSESSMENT: * 89yo T2DM female with unknown degree of outpatient control as recent A1c is outdated. Ordered per protocol for tomorrow AM * Pt is maintained on SQ basal bolus insulin regimen as an outpatient. Regimen continued on admission but dosing slightly reduced for NPO status * AM fasting BSG slightly below goal range for inpatient targets this AM at 96 mg/dl after receiving 10 units of Lantus last evening (home dose is 15 units). Unsure if this is below goal from dosing or NPO status. Will order BSG scale based Lantus dosing for this evening and continue to titrate based on BSG trends. * No changes needed to CF/CR - currently weight based parameters PLAN FOR INPATIENT GLYCEMIC CONTROL: * Basal insulin: change to BSG scale based dosing * Lantus 8-10 units SQ HS (outpatient dosing is 15 units HS) * BSG < 120 mg/dl --> 8 units * BSG 120mg/dl or above --> 10 units * Bolus insulin * NovoLog per scale ACHS or Q6hrs while NPO * Goal Range: Low 120 mg/dL - High 160 mg/dL * Correction Factor: 30 mg/dL/unit * Nutritional / Prandial insulin per carb ratio of 1 unit per 10 grams CHO consumed
--- NOTE | 2020-02-11 16:17 | Hospitalist Progress Note ---
Date of Service February 11, 2020 Assessment & Plan (1) Stroke-like symptoms: TIA Telestroke cart in the ED with tertiary care neurologist - recommended MRI, treatment of headache, monitoring blood pressure and possible EEG to rule out seizure as source of problems CT head negative, CTA head negative, CTA neck with 50% left ICA focal stenosis, MRI without acute finding Continue home Plavix, statin Consulted neurology - recommends EEG, consider Holter monitor outpatient, follow up withe neurology in 6-8 weeks with Ignaciaja Hernandez Recent echo in August - EF 65%, no RWMA, mild pulmonary hypertension PT/OT/Speech Urine with leuk esterase, WBCs, and bacteria. UC with mixed radha - no leukocyto sis, no fevers, no dysuria (2) Acute kidney injury: Secondary to dehydration Creat 1.8, mild hypokalemia at 5.2 Given 500 ml bolus this morning with good effect and will give 2L IVF at 100mls Recheck bmp am hold home lisinopril (3) Hypertension: History of hypertensive encephalopathy Hypotensive this morning with hypertension this afternoon after fluid administration Will hold lisinopril for MARICARMEN Hydralazine for SBP greater than 180 (4) Spinal stenosis of lumbar region: Sees Dr. Davis outpatient for pain management. Discussed with daughter that patient should probably push back her lumbar injection this week as she should not hold Plavix until following up with neurology (5) Carotid stenosis, left: As seen on CTA and has been noted since 05/09/2019 Discussed with daughter - patient has not wanted intervention in the past. Recommended that if they reconsidered they could be referred by her pcp to vascular surgery (6) Dyslipidemia: Continue atorvastatin (7) Elevated troponin: Troponin 0.82 and trended down to 0.7 No s/s of ischemia on EKG, no ischemic symptoms Continue statin and plavix (8) Thrombocytopenia: Resolved (9) Hypomagnesemia: Replaced in the ED (10) Hypocalcemia: Replaced in the ED (11) Diabetes mellitus type II, controlled: Last A1c August 22.8 BSGs AC & HS consult pharmacy glycemic management A1c pending (12) Lymphocytosis: 4.62 today Patient has intermittently elevated lymphocytes looking back through her history Continue to monitor (13) DVT prophylaxis: SCDs, heparin subq Daughter updated over the phone Admission and Anticipated Discharge Date Admission Date: February 10, 2020 Subjective Ms. Urbano is much improved today, speaking more fluently with only minor word finding difficulty. Her sciatica is bothering her. No further headaches this afternoon ROS Constitutional: no chills, aches, sweats or fever Respiratory: no sob,cough, sputum, or wheezing Cardiac: no chest pain, palpitations, edema, orthopnea or lightheadedness GI: no abdominal pain, nausea, vomiting, diarrhea or constipation : no dysuria or hesitancy Extremities: no joint pain or weakness Skin: no rash All other systems reviewed and negative Review of Systems Review of Systems: All systems reviewed & are unremarkable except as noted in HPI & below Physical Exam Physical Exam: General: no distress Eyes: normal inspection, PERLL Respiratory: chest non tender, clear to auscultation, normal breath sounds, no respiratory distress, no accessory muscle use Cardiac: regular rate and rhythm, no rub or gallop, no murmur, no edema, no jvd GI/: active bowel sounds, no abd pain or tenderness, soft, non distended Extremities: normal range of motion, normal strength, non tender Neuro/Psych: alert and oriented x 3, normal mood and affect Skin: normal color, dry Results & Data Results & Data ([facility]) Vital Signs (Past 12 Hours) Vital Signs Temp Pulse Pulse Resp BP Pulse Ox 02/11/20 15:26 36.3 C L 57 L 19 165/66 H 94 02/11/20 15:01 47 L 02/11/20 11:49 36.3 C L 51 L 16 95/48 L 96 02/11/20 07:37 36.7 C 54 L 16 93/46 L 95 02/11/20 07:23 49 L PG Care Time/CCT Total # of Minutes Spent Total Time Spent with Patient: Total time spent is greater than 50% in coordination of care (as documented) at patient's floor/unit and/or counseling patient: Coding Level of Care Code 33729 Subseq Hosp Care Lvl 3 Diagnoses Stroke-like symptoms R29.90 Acute kidney injury N17.9 Hypertension I10 Hypertension type: unspecified Spinal stenosis of lumbar region M48.061 Carotid stenosis, left I65.22 Dyslipidemia E78.5 Elevated troponin R79.89 Thrombocytopenia D69.6 Hypomagnesemia E83.42 Hypocalcemia E83.51 Diabetes mellitus type II, controlled E11.9 Lymphocytosis D72.820 DVT prophylaxis Z29.9 (1) Hypertension Hypertension type: unspecified Qualified Code(s): I10 - Essential (primary) hypertension
[2020-02-11 19:29] LABS: Calcium 8.7 mg/dl (8.5-10.1); Creatinine Clr Calc Pharmacy 22.4 ml/min; Est GFR (African American) 32.5; Est GFR (Non-African American) 28.1; Potassium 4.6 mmol/L (3.5-5.1)
[2020-02-11] MEDS ORDERED: INSULIN GLARGINE SOLOSTAR 100 UNITS/ML 3 ML PEN SC SCH (21:00)
[2020-02-11] MEDS: CLOPIDOGREL BISULFATE 75 MG TAB PO SCH (21:16)
[2020-02-11] MEDS: ATORVASTATIN 40 MG TAB PO SCH (21:16)
[2020-02-11] MEDS: ACETAMINOPHEN 325 MG TAB PO PRN (21:26)
[2020-02-12 07:11] LABS: Hematocrit (blood only) 35.2 % (37-47); Hemoglobin 11.5 g/dL (12.0-16.0); Mean Corpuscular Hemoglobin 29.6 pg (25-34); Mean Corpuscular Hgb Conc 32.7 g/dL (32-36); Mean Corpuscular Volume 90.5 fL (80-100); Mean Platelet Volume 11.5 fL (7.4-10.4); Platelet Count 127 K/uL (130-400); RDW Coefficient of Variation 13.8 % (11.5-14.5); RDW Standard Deviation 45.2 fL (36.4-46.3); Red Blood Count 3.89 M/uL (4.2-5.4)
[2020-02-12 07:40] LABS: ALC (manual) 4.16 K/uL (1.2-3.4); ANC (manual) 2.97 K/uL (1.4-6.5); Eosinophils % (manual) 2.6 %; Large Granular Lymph # (manua 3.24 K/uL; Large Granular Lymph % (manual) 42.6 %; Lymphocytes # (manual) 0.93 K/uL (1.2-3.4); Lymphocytes % (manual) 12.2 %; Metamyelocytes # (manual) 0.07 K/uL (0-0); Metamyelocytes % (manual) 0.9 %; Monocytes % (manual) 2.6 %; Neutrophils # (manual) 2.97 K/uL (1.4-6.5); Neutrophils % (manual) 39.1 %; RBC Morphology Unremarkable
[2020-02-12] MEDS: INSULIN ASPART 100 UNITS/ML 3 ML PEN SC SCH ×4 (07:57→20:59)
[2020-02-12] MEDS: HEPARIN SOD 5,000 UNIT/0.5 ML VIAL SQ SCH ×2 (07:58→21:03)
--- NOTE | 2020-02-12 08:43 | Neurology Progress Note ---
Date of Service February 12, 2020 Assessment & Plan (1) Diabetes mellitus type II, controlled: (2) Thrombocytopenia: (3) Hypertension: (4) Stroke-like symptoms: Leda Urbano is an 89 yo woman w/ PMH of DM, HLD, CAD s/p CABG, lumbar spinal stenosis, h/o recurrent TIAs and known mild L ICA stenosis who p/t [facility] after acute onset of confusion and word finding difficulty. # Possible TIA: headache is not uncommon prior to TIAs. Leda'jessica BP was much more elevated at admission than where it usually is, so cannot fully rule out hypertensive urgency. Symptom localization: L MCA territory Stroke mechanism: vessel to vessel embolus vs flow failure Stroke WorkUp: - CT head: no hemorrhage or hypodensity, mild generalized atrophy with mild small vessel disease. - CTA head/neck: right [employer], diminished caliber of the basilar artery, mild to moderate left ICA stenosis, no other LVO, high-grade stenosis or aneurysm noted - MRI brain: no acute infarct, mild generalized atrophy with small vessel disease, stable from prior - TTE: pending - Telemetry: sinus bradycardia - A1c: pending - FLP: 50 - Troponin: 0.08 Stroke Management: - Continuous cardiac monitoring, consider Holter monitor as outpatient if tele metry here unrevealing - Vitals, Neurochecks, NIHSS per unit routine - BP parameters: SBP CAP 180, restart home anti-hypertensives when safe given current hypotension - Complete TIA workup with TTE without bubble, A1c, EEG - Consult speech, PT, OT for supportive management - Will appliance counselor concerning stroke education, smoking cessation, healthy diet, physical activity, weight loss - Follow up with PCP for assistance with outpatient goals (BP <135/85, LDL <70, A1c <7) - Follow up in neurology clinic in 6-8 weeks (can see SUJATHA Landers again) - routine EEG to r/o seizure tendency - could try ubrelvy for acute headache treatment (not on formulary here but could call the neurology office on Thursday for a sample) Secondary Stroke Prevention: - Antiplatelet: plavix 75mg po daily - Anticoagulation: Not indicated at this time - Statin: Atorvastatin 40mg daily HTN: - BP parameters, as above - Restart home medications with goal of lowering BP to normotension over next 3- 4 days FEN/GI: - Diet: Cardiac HH diet and PO meds given absence of bulbar signs or symptoms - Monitor lytes and replete PRN Glucose Control: - Sliding scale insulin and accuchecks per primary team to avoid hyperglycemia Thank you for this interesting consult. Plan of care was discussed with primary team. Please call with any questions. (5) Headache: Admission and Anticipated Discharge Date Admission Date: February 10, 2020 Subjective NAEs overnight. BP closer to normal range for her this morning. Continues to have bradycardia. Reports that she had recurrence of word finding difficulty this morning. During examination, she had stuttering and pauses in her speech but could otherwise hold a conversation. Reported having a mild headache that resolved quickly without treatment. Review of Systems Review of Systems: 14 point review of systems completed and negative except as in HPI. Results & Data ([facility]) Vital Signs (Past 12 Hours) Vital Signs Temp Pulse Pulse Resp BP Pulse Ox 02/12/20 07:43 37 C 51 L 16 136/44 L 95 02/12/20 07:26 50 L 02/12/20 03:51 36.5 C 45 L 16 122/67 96 02/11/20 23:48 51 L 02/11/20 22:05 36.4 C L 48 L 18 134/52 L 96 Exam (Neuro) Physical Exam: General Exam: GEN: NAD, sitting in chair. HEENT: No conjunctival injection, no rhinorrhea. CV: RRR, no peripheral edema PULM: Nonlabored respirations on room air. Neuro Exam: MS: Awake and Alert. Oriented to person, place, and date. Speech fluent and appropriate without dysarthria or paraphasic errors. Language intact including naming, comprehension, repetition. Cognition and memory grossly intact. Attention intact. No neglect. CN: Visual guthrie full. No extinction to double simultaneous stimuli. Unable to visualize fundi on fundoscopic exam. PERRLA OU. EOMI without nystagmus. Facial sensation intact to LT. Facial muscles full and symmetric. Hearing intact to conversation. Uvula midline with symmetric palatal elevation. Shoulder shrug normal. Tongue midline. MOTOR: Normal bulk and tone. No pronator drift. BUE strength 5/5 at deltoids, biceps, triceps, wrist flexors and extensors, and hand grasp bilaterally. BLE strength 5/5 at iliopsoas, hamstrings, quadriceps, tibialis anterior, and gastrocnemius bilaterally. REFLEXES: 1+ at biceps, triceps, brachioradialis, 1+ patella and absent Achilles bilaterally. Flexor plantar responses bilaterally. SENSORY: Intact to LT without extinction to double simultaneous stimuli. Vibration intact throughout. COORDINATION: No dysmetria or ataxia on [id number] and [id number]-[id number] bilaterally. Normal Amilcar bilaterally. GAIT: deferred, requires walker to ambulate PG Care Time/CCT Total # of Minutes Spent Total Time Spent with Patient: Total time spent is greater than 50% in coordination of care (as documented) at patient's floor/unit and/or counseling patient: Coding Level of Care Code 44804 Subseq Hosp Care Lvl 3 Diagnoses Diabetes mellitus type II, controlled E11.9 Thrombocytopenia D69.6 Hypertension I10 Hypertension type: unspecified Stroke-like symptoms R29.90 Headache R51 Headache chronicity pattern: acute headache Headache type: unspecified Intractability: not intractable (1) Headache Headache chronicity pattern: acute headache Headache type: unspecified Intractability: not intractable Qualified Code(s): R51 - Headache (2) Hypertension Hypertension type: unspecified Qualified Code(s): I10 - Essential (primary) hypertension
[2020-02-12 09:18] LABS: Albumin Level 3.3 gm/dl (3.4-5.0); BUN Creatinine Ratio 30.5 (10-20); Creatinine Clr Calc Pharmacy 26.3 ml/min; Est GFR (African American) 39.5; Est GFR (Non-African American) 34.1; Potassium 4.6 mmol/L (3.5-5.1)
[2020-02-12 09:21] LABS: Albumin Globulin Ratio 0.9 (0.9-2); Bilirubin,Total 0.8 mg/dl (0.2-1); Globulin 3.9 gm/dl (2.5-4.0); Total Protein 7.2 gm/dl (6.4-8.2)
--- NOTE | 2020-02-12 10:01 | Pharmacy Report ---
Pharmacy Glycemic Short Note 2 - Date of Service February 12, 2020 - Glycemic Short BSG Results (Last 24 hours): 02/11/20 02/11/20 02/11/20 11:46 16:29 19:00 Glucose 183 H POC Glucose 86 125 H 02/11/20 02/12/20 02/12/20 20:09 07:36 08:32 Glucose 171 H POC Glucose 194 H 125 H OUTPATIENT ANTIDIABETIC REGIMEN: * Lantus 15 units SQ HS * Humalog 6 units SQ BIDM * A1c = 6.8% on 09/05/19 - reordered for 02/11 per protocol since this value is outdated ASSESSMENT: * 89yo T2DM female with unknown degree of outpatient control as recent A1c is outdated. Ordered per protocol * Pt is maintained on SQ basal bolus insulin regimen as an outpatient. Regimen continued on admission but dosing slightly reduced for NPO status. Regimen working well even with advanced diet yesterday. * Pt has received 18 units of insulin over the past 24hrs * 10 units of basal {Lantus} * 8 units of bolus {NovoLog} * BSGs 86 -194 mg/dl * No changes needed today. PLAN FOR INPATIENT GLYCEMIC CONTROL: * Basal insulin: * Lantus 10 units SQ HS (outpatient dosing is 15 units HS) * Bolus insulin * NovoLog per scale ACHS or Q6hrs while NPO * Goal Range: Low 120 mg/dL - High 160 mg/dL * Correction Factor: 30 mg/dL/unit * Nutritional / Prandial insulin per carb ratio of 1 unit per 10 grams CHO consumed
--- NOTE | 2020-02-12 10:13 | Hospitalist Progress Note ---
Date of Service February 12, 2020 Assessment & Plan (1) Stroke-like symptoms: TIA Telestroke cart in the ED with tertiary care neurologist - recommended MRI, treatment of headache, monitoring blood pressure and possible EEG to rule out seizure as source of problems CT head negative, CTA head negative, CTA neck with 50% left ICA focal stenosis, MRI without acute finding Continue home Plavix, statin Consulted neurology - recommends EEG which was ordered, consider Holter monitor outpatient, follow up withe neurology in 6-8 weeks with Ignaciaja Hernandez Recent echo in August - EF 65%, no RWMA, mild pulmonary hypertension PT/OT/Speech Urine with leuk esterase, WBCs, and bacteria. UC with mixed radha - no leukocytosis, no fevers, no dysuria (2) Hypertension: Improving History of hypertensive encephalopathy Hypotensive this morning with hypertension this afternoon after fluid administration Will hold lisinopril for MARICARMEN - will resume tomorrow morning Hydralazine for SBP greater than 180 Will give 1 further liter of fluid for slightly low urine output NSS @ 80 ml/hr (3) Spinal stenosis of lumbar region: Sees Dr. Davis outpatient for pain management. Discussed with daughter that patient should probably push back her lumbar injection this week as she should not hold Plavix until following up with neurology (4) Carotid stenosis, left: As seen on CTA and has been noted since 05/09/2019 Discussed with daughter - patient has not wanted intervention in the past. Recommended that if they reconsidered they could be referred by her pcp to vascular surgery (5) Dyslipidemia: Continue atorvastatin (6) Elevated troponin: Troponin 0.82 and trended down to 0.7 No s/s of ischemia on EKG, no ischemic symptoms Continue statin and plavix Will order echo (7) Thrombocytopenia: Resolved (8) Hypomagnesemia: Replaced in the ED (9) Hypocalcemia: Replaced in the ED (10) Diabetes mellitus type II, controlled: Last A1c August 22.8 BSGs AC & HS consult pharmacy glycemic management A1c pending (11) DVT prophylaxis: SCDs, heparin subq Admission and Anticipated Discharge Date Admission Date: February 10, 2020 Subjective Ms. Urbano no longer has any headache. She continues to have a little bit of word finding difficulties but is overall fluent in her conversation. Updated daughter Piper MILLER Constitutional: no chills, aches, sweats or fever Respiratory: no sob,cough, sputum, or wheezing Cardiac: no chest pain, palpitations, edema, orthopnea or lightheadedness GI: no abdominal pain, nausea, vomiting, diarrhea or constipation : no dysuria or hesitancy Extremities: no joint pain or weakness Skin: no rash All other systems reviewed and negative Physical Exam Physical Exam: General: no distress Eyes: normal inspection, PERLL Respiratory: chest non tender, clear to auscultation, normal breath sounds, no respiratory distress, no accessory muscle use Cardiac: regular rate and rhythm, no rub or gallop, no murmur, no edema, no jvd GI/: active bowel sounds, no abd pain or tenderness, soft, non distended Extremities: normal range of motion, normal strength, non tender Neuro/Psych: alert and oriented x 3, normal mood and affect, mild aphasia Skin: normal color, dry Results & Data Results & Data ([facility]) Vital Signs (Past 12 Hours) Vital Signs Temp Pulse Pulse Resp BP Pulse Ox 02/12/20 07:43 37 C 51 L 16 136/44 L 95 02/12/20 07:26 50 L 02/12/20 03:51 36.5 C 45 L 16 122/67 96 02/11/20 23:48 51 L PG Care Time/CCT Total # of Minutes Spent Total Time Spent with Patient: Total time spent is greater than 50% in coordination of care (as documented) at patient's floor/unit and/or counseling patient: Coding Level of Care Code 42986 Subseq Hosp Care Lvl 3 Diagnoses Stroke-like symptoms R29.90 Hypertension I10 Hypertension type: unspecified Spinal stenosis of lumbar region M48.061 Carotid stenosis, left I65.22 Dyslipidemia E78.5 Elevated troponin R79.89 Thrombocytopenia D69.6 Hypomagnesemia E83.42 Hypocalcemia E83.51 Diabetes mellitus type II, controlled E11.9 DVT prophylaxis Z29.9 (1) Hypertension Hypertension type: unspecified Qualified Code(s): I10 - Essential (primary) hypertension
[2020-02-12] MEDS ORDERED: SODIUM CHLORIDE 0.9% 1000ML 1,000 ML IV SCH (10:30)
--- NOTE | 2020-02-12 12:25 | XCELERA ---
[id number] \\[id number]
[2020-02-12] MEDS: ACETAMINOPHEN 325 MG TAB PO PRN (20:55)
[2020-02-12] MEDS: INSULIN GLARGINE SOLOSTAR 100 UNITS/ML 3 ML PEN SC SCH (21:02)
[2020-02-12] MEDS: ATORVASTATIN 40 MG TAB PO SCH (21:03)
[2020-02-12] MEDS: CLOPIDOGREL BISULFATE 75 MG TAB PO SCH (22:37)
[2020-02-12] MEDS: HydrALAZINE 10 MG TAB PO PRN (22:49)
[2020-02-13 07:26] LABS: Estimated Average Glucose 131 mg/dl; Hemoglobin A1C 6.2 % (4.5-5.6)
[2020-02-13 07:30] LABS: Hematocrit (blood only) 34.6 % (37-47); Hemoglobin 11.3 g/dL (12.0-16.0); Mean Corpuscular Hemoglobin 29.4 pg (25-34); Mean Corpuscular Hgb Conc 32.7 g/dL (32-36); Mean Corpuscular Volume 90.1 fL (80-100); Mean Platelet Volume 11.2 fL (7.4-10.4); Platelet Count 140 K/uL (130-400); RDW Coefficient of Variation 13.7 % (11.5-14.5); RDW Standard Deviation 45.3 fL (36.4-46.3); Red Blood Count 3.84 M/uL (4.2-5.4); White Blood Count 7.43 K/uL (4.8-10.8)
[2020-02-13 07:52] LABS: ALC (manual) 4.04 K/uL (1.2-3.4); ANC (manual) 2.67 K/uL (1.4-6.5); Eosinophils # (manual) 0.26 K/uL (0-0.5); Eosinophils % (manual) 3.5 %; Large Granular Lymph # (manua 3.06 K/uL; Large Granular Lymph % (manual) 41.2 %; Lymphocytes # (manual) 0.98 K/uL (1.2-3.4); Lymphocytes % (manual) 13.2 %; Monocytes # (manual) 0.45 K/uL (0.11-0.59); Monocytes % (manual) 6.1 %; Neutrophils # (manual) 2.67 K/uL (1.4-6.5); RBC Morphology Unremarkable
[2020-02-13] MEDS: HydrALAZINE 10 MG TAB PO PRN (08:03)
[2020-02-13] MEDS: HEPARIN SOD 5,000 UNIT/0.5 ML VIAL SQ SCH ×2 (08:04→20:45)
[2020-02-13] MEDS: lisinopriL 5 MG TAB PO SCH (08:04)
[2020-02-13] MEDS: INSULIN ASPART 100 UNITS/ML 3 ML PEN SC SCH ×4 (08:06→20:44)
[2020-02-13 11:14] LABS: BUN Creatinine Ratio 27.7 (10-20); Calcium 8.5 mg/dl (8.5-10.1); Creatinine Clr Calc Pharmacy 28.3 ml/min; Est GFR (African American) 42.9; Potassium 4.4 mmol/L (3.5-5.1)
--- NOTE | 2020-02-13 13:27 | Hospitalist Progress Note ---
Date of Service February 13, 2020 Assessment & Plan (1) Stroke-like symptoms: * Possible TIA -- > Telestroke cart in the ED with tertiary care neurologist - recommended MRI, treatment of headache, monitoring blood pressure and possible EEG to rule out seizure as source of problems * CT head negative, CTA head negative, CTA neck with 50% left ICA focal stenosis, MRI without acute finding * Continue home Plavix, atorvastatin * Consulted neurology - recommends EEG which was ordered (to be done 02/12), consider Holter monitor outpatient, follow up withe neurology in 6-8 weeks with Ignacia Hernandez * Repeat ECHO with mild LVH, normal systolic function, mild L atrial dilation, mild AR, mild-mod MR Patient has been running 40-50bpm on telemetry, sinus rhythm which increases to 90-100s with activity. Not on any AV coleman blocking agents or reported syncope/falls * Rec follow up with Neurology 6-8 weeks with SUJATHA Landers * PT/OT -- please continue to see while inpatient * Speech eval * UA with leuk esterase, WBCs, and bacteria. UC with mixed radha - no leukocytosis, no fevers, no dysuria (2) Hypertension: * Had still been elevated up to 181/63 this morning but after resuming lisinopril 5mg PO pressures improved to 134/63 (held for MARICARMEN) * Hydralazine prn SBP >180 * Continue to monitor (3) Acute kidney injury: * IMPROVING * No previous diagnosis listed for CKD, although patient's eGFR 30-60 since 2018, CKD III * Cr appears to be closer to 1.1 at baseline, but was elevated up to 1.8 on admission * Given IVF, Lisinopril held in setting of dehydration/TIA * Cr improved to 1.28 this morning --> lisinopril resumed for BP control * Continue to monitor (4) Spinal stenosis of lumbar region: * Sees Dr. Davis outpatient for pain management. Discussed with daughter that patient should probably push back her lumbar injection she should not hold Plavix until following up with neurology --> appointment cancelled per conversation with daughter ThursdayFebruary 12. (5) Carotid stenosis, left: * As seen on CTA and has been noted since 05/09/2019 * Discussed previously with daughter --> patient has not wanted intervention in the past --> Recommended that if they reconsidered they could be referred by her pcp to vascular surgery * continue statin and Plavix (6) Dyslipidemia: * Continue atorvastatin (7) Elevated troponin: * Troponin 0.082 and trended down to 0.07 -- no s/sx of ischemia * ECHO as above * Continue home plavix, atorvastatin (8) Thrombocytopenia: * Resolved (9) Hypomagnesemia: * Replaced in the ED (10) Hypocalcemia: * Replaced in the ED (11) Diabetes mellitus type II, controlled: * Last A1c August 6.8 --> repeat A1c 6.2. 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 Cr appears to be closer to 1.1 at baseline, but was elevated up to 1.8 on admission * See above -- IVF, Held lisinopril * Cr improved to 1.28 this morning --> lisinopril resumed for BP control * Continue to monitor (13) DVT prophylaxis: * SCDs, heparin subq Dispo: EEG pending, likely discharge Thursday CM set up [facility], pt on schedule for 02/14 Admission and Anticipated Discharge Date Admission Date: February 10, 2020 Supervising Physician Co-Signing Physician Notes SUJATHA Supervision Note: I did not personally see or examine the patient today, but I verified all mac points of SUJATHA Lopez's assessment and plan with the following exceptions/additions: None Awaiting EEG-unclear why was no done today. Hopeful for dc to home tomorrow, now with improved BP control Subjective Patient evaluated this morning. She states she feels better but still has occasional headache. Can be frontally located or off to the side and comes and goes. She states headache is improved compared to yesterday. She reports she has been having these headaches since August. Associated flashes in her vision when she first opens her eyes. No further episodes of confusion or disorientation per her report. She states she had not yet had EEG completed. Discussed getting better BP control to see if this may have been contributing to recent episodes. Updated daughter, Piper, by phone on plan. Denies fevers,chills, chest pain,shortness of breath, abdominal pain, dysuria at this time. Review of Systems Review of Systems: All systems reviewed & are unremarkable except as noted in HPI & below Physical Exam Constitutional: + frail appearing, cooperative and comfortable; no acute distress Eyes: + anicteric sclerae and PERRL ENMT: Ears: no hearing impairment Nose: no external nose abnormality Neck: trachea midline, no thyromegaly Respiratory: normal respiratory effort, lungs clear to auscultation Cardiovascular: Rate/Rhythm: regular rhythm and + bradycardic Heart Sounds: + murmur (systolic LSB) Gastrointestinal (Abdomen): normal bowel sounds, soft, nontender, no hepatosplenomegaly Musculoskeletal: no cyanosis or clubbing, extremities motor strength 5/5 Skin: no rashes, warm and dry Neurologic: patellar DTR's 2+ bilat, sensation intact and PERRL, EOMI, accommodation nl, no face palsy, no dysarthria Psychiatric: Orientation: alert and oriented x 3 Lymphatic: no cervical or axillary lymphadenopathy Results & Data Results & Data ([facility]) Vital Signs (Past 12 Hours) Vital Signs Temp Pulse Pulse Resp BP BP Pulse Ox 02/13/20 11:22 36.4 C L 75 18 134/63 98 02/13/20 07:52 36.7 C 55 L 18 181/63 H 95 02/13/20 07:41 43 L 02/13/20 02:22 36.6 C 64 18 183/56 H 98 Laboratory Results 02/13/20 02/13/20 02/13/20 Range/Units 11:26 07:25 07:10 WBC (4.8-10.8) K/uL RBC (4.2-5.4) M/uL Hgb (12.0-16.0) g/dL Hct (37-47) % MCV (80-100) fL MCH (25-34) pg MCHC (32-36) g/dL RDW Std Deviation (36.4-46.3) fL RDW Coeff of Galina (11.5-14.5) % Plt Count (130-400) K/uL MPV (7.4-10.4) fL Neutrophils % (Manual) % Lymphocytes % (Manual) % Monocytes % (Manual) % Eosinophils % (Manual) % Neutrophils # (Manual) (1.4-6.5) K/uL Total Absolute Neuts (1.4-6.5) K/uL Lymphocytes # (Manual) (1.2-3.4) K/uL Total Abs Lymphocytes (1.2-3.4) K/uL Monocytes # (Manual) (0.11-0.59) K/uL Eosinophils # (Manual) (0-0.5) K/uL Large Granular Lymphs % # Lrg Granular Lymphs K/uL RBC Morphology Sodium 141 (136-145) mmol/L Potassium 4.4 (3.5-5.1) mmol/L Chloride 112 H (98-107) mmol/L Carbon Dioxide 25 (21-32) mmol/L Anion Gap 4.0 (3-11) BUN 36 H (7-18) mg/dl Creatinine 1.28 H (0.6-1.2) mg/dl Est Cr Clr Drug Dosing 28.3 ml/min Est GFR ( Amer) 42.9 Est GFR (Non-Af Amer) 37.0 BUN/Creatinine Ratio 27.7 H (10-20) Glucose 121 H (70-99) mg/dl POC Glucose 127 H 134 H (70-99) mg/dl Estimat Average Glucose mg/dl Hemoglobin A1c (4.5-5.6) % Calcium 8.5 (8.5-10.1) mg/dl 02/13/20 02/12/20 02/12/20 Range/Units 07:09 20:14 16:39 WBC 7.43 (4.8-10.8) K/uL RBC 3.84 L (4.2-5.4) M/uL Hgb 11.3 L (12.0-16.0) g/dL Hct 34.6 L (37-47) % MCV 90.1 (80-100) fL MCH 29.4 (25-34) pg MCHC 32.7 (32-36) g/dL RDW Std Deviation 45.3 (36.4-46.3) fL RDW Coeff of Galina 13.7 (11.5-14.5) % Plt Count 140 (130-400) K/uL MPV 11.2 H (7.4-10.4) fL Neutrophils % (Manual) 36.0 % Lymphocytes % (Manual) 13.2 % Monocytes % (Manual) 6.1 % Eosinophils % (Manual) 3.5 % Neutrophils # (Manual) 2.67 (1.4-6.5) K/uL Total Absolute Neuts 2.67 (1.4-6.5) K/uL Lymphocytes # (Manual) 0.98 L (1.2-3.4) K/uL Total Abs Lymphocytes 4.04 H (1.2-3.4) K/uL Monocytes # (Manual) 0.45 (0.11-0.59) K/uL Eosinophils # (Manual) 0.26 (0-0.5) K/uL Large Granular Lymphs 41.2 % # Lrg Granular Lymphs 3.06 K/uL RBC Morphology Unremarkable Sodium (136-145) mmol/L Potassium (3.5-5.1) mmol/L Chloride (98-107) mmol/L Carbon Dioxide (21-32) mmol/L Anion Gap (3-11) BUN (7-18) mg/dl Creatinine (0.6-1.2) mg/dl Est Cr Clr Drug Dosing ml/min Est GFR ( Amer) Est GFR (Non-Af Amer) BUN/Creatinine Ratio (10-20) Glucose (70-99) mg/dl POC Glucose 138 H 127 H (70-99) mg/dl Estimat Average Glucose mg/dl Hemoglobin A1c (4.5-5.6) % Calcium (8.5-10.1) mg/dl 02/12/20 Range/Units 06:50 WBC (4.8-10.8) K/uL RBC (4.2-5.4) M/uL Hgb (12.0-16.0) g/dL Hct (37-47) % MCV (80-100) fL MCH (25-34) pg MCHC (32-36) g/dL RDW Std Deviation (36.4-46.3) fL RDW Coeff of Galina (11.5-14.5) % Plt Count (130-400) K/uL MPV (7.4-10.4) fL Neutrophils % (Manual) % Lymphocytes % (Manual) % Monocytes % (Manual) % Eosinophils % (Manual) % Neutrophils # (Manual) (1.4-6.5) K/uL Total Absolute Neuts (1.4-6.5) K/uL Lymphocytes # (Manual) (1.2-3.4) K/uL Total Abs Lymphocytes (1.2-3.4) K/uL Monocytes # (Manual) (0.11-0.59) K/uL Eosinophils # (Manual) (0-0.5) K/uL Large Granular Lymphs % # Lrg Granular Lymphs K/uL RBC Morphology Sodium (136-145) mmol/L Potassium (3.5-5.1) mmol/L Chloride (98-107) mmol/L Carbon Dioxide (21-32) mmol/L Anion Gap (3-11) BUN (7-18) mg/dl Creatinine (0.6-1.2) mg/dl Est Cr Clr Drug Dosing ml/min Est GFR ( Amer) Est GFR (Non-Af Amer) BUN/Creatinine Ratio (10-20) Glucose (70-99) mg/dl POC Glucose (70-99) mg/dl Estimat Average Glucose 131 mg/dl Hemoglobin A1c 6.2 H (4.5-5.6) % Calcium (8.5-10.1) mg/dl PG Care Time/CCT Total # of Minutes Spent Total Time Spent with Patient: Total time spent is greater than 50% in coordination of care (as documented) at patient's floor/unit and/or counseling patient: Coding Level of Care Code 98906 Subseq Hosp Care Lvl 2 Diagnoses Stroke-like symptoms R29.90 Hypertension I10 Hypertension type: unspecified Acute kidney injury N17.9 Spinal stenosis of lumbar region M48.061 Carotid stenosis, left I65.22 Dyslipidemia E78.5 Elevated troponin R79.89 Thrombocytopenia D69.6 Hypomagnesemia E83.42 Hypocalcemia E83.51 Diabetes mellitus type II, controlled E11.9 CKD (chronic kidney disease) stage 3, GFR 30-59 ml/min N18.3 DVT prophylaxis Z29.9 (1) Hypertension Hypertension type: unspecified Qualified Code(s): I10 - Essential (primary) hypertension
[2020-02-13] MEDS: ACETAMINOPHEN 325 MG TAB PO PRN ×2 (16:15→23:45)
[2020-02-13] MEDS: ATORVASTATIN 40 MG TAB PO SCH (20:45)
[2020-02-13] MEDS: CLOPIDOGREL BISULFATE 75 MG TAB PO SCH (20:45)
[2020-02-13] MEDS: INSULIN GLARGINE SOLOSTAR 100 UNITS/ML 3 ML PEN SC SCH (20:45)
[2020-02-14] MEDS: INSULIN ASPART 100 UNITS/ML 3 ML PEN SC SCH ×2 (08:42→12:08)
[2020-02-14] MEDS: HEPARIN SOD 5,000 UNIT/0.5 ML VIAL SQ SCH (08:43)
[2020-02-14] MEDS: lisinopriL 5 MG TAB PO SCH (08:43)
[2020-02-14 08:46] LABS: BUN Creatinine Ratio 32.6 (10-20); Calcium 9.1 mg/dl (8.5-10.1); Creatinine Clr Calc Pharmacy 30.8 ml/min; Est GFR (African American) 47.8; Est GFR (Non-African American) 41.3; Potassium 4.7 mmol/L (3.5-5.1)
--- NOTE | 2020-02-14 11:16 | Electroencephalogram ---
EEG Procedure Note Date of Service February 14, 2020 Start / End Times Start Time: 9:58 AM End Time: 10:18 AM Referring Physician Ophelia Lopez PA-C History Rule out seizure/seizure activity Home Medication List Home Medications Medication Instructions Recorded Confirmed Type clopidogrel 75 mg tablet 75 mg PO HS tab 05/03/19 02/10/20 History insulin syringe-needle U-100 0.5 #10 ea 05/03/19 01/19/20 History mL 31 gauge x 12/30" multivitamin with minerals 1 tab PO QAM tab 05/03/19 02/10/20 History pen needle, diabetic 32 gauge x #10 ea 05/03/19 01/19/20 History /32" acetaminophen [Tylenol] 325 mg PO Q6H PRN 08/05/19 02/10/20 History insulin lispro [Humalog KwikPen 6 unit SUBCUT BIDM 08/07/19 02/10/20 History Insulin] OneTouch Ultra Blue Test Strip #400 ea NS 10/24/19 01/19/20 Rx Lantus U-100 Insulin 100 unit/mL 15 units SUBCUT HS #20 ml NS 12/28/19 02/10/20 Rx subcutaneous solution atorvastatin 40 mg tablet 40 mg PO HS #90 tab 01/01/20 02/10/20 Rx Inpatient Medication List Acetaminophen (Tylenol) 650 mg PO Q4H PRN PRN Reason: Pain Stop: 03/11/20 17:42 Last Admin: 02/13/20 23:45 Dose: 650 mg Documented by: [id number] Admin: 02/13/20 16:15 Dose: 650 mg Documented by: [id number] Admin: 02/12/20 20:55 Dose: 650 mg Documented by: [id number] Admin: 02/11/20 21:26 Dose: 650 mg Documented by: [id number] Admin: 02/10/20 17:57 Dose: 650 mg Documented by: [id number] Atorvastatin Calcium (Lipitor) 40 mg PO HS ALEX Stop: 03/11/20 20:59 Last Admin: 02/13/20 20:45 Dose: 40 mg Documented by: [id number] Admin: 02/12/20 21:03 Dose: 40 mg Documented by: [id number] Admin: 02/11/20 21:16 Dose: 40 mg Documented by: [id number] Admin: 02/10/20 21:14 Dose: 40 mg Documented by: [id number] Clopidogrel Bisulfate (Plavix) 75 mg PO HS ALEX Stop: 03/11/20 20:59 Last Admin: 02/13/20 20:45 Dose: 75 mg Documented by: [id number] Admin: 02/12/20 22:37 Dose: 75 mg Documented by: [id number] Admin: 02/11/20 21:16 Dose: 75 mg Documented by: [id number] Admin: 02/10/20 21:14 Dose: 75 mg Documented by: [id number] Heparin Sodium (Porcine) (Heparin Sodium (Porcine)) 5,000 units SQ Q12 ALEX Stop: 03/11/20 20:59 Last Admin: 02/14/20 08:43 Dose: 5,000 units Documented by: [id number] Cosigned by: [id number] Admin: 02/13/20 20:45 Dose: 5,000 units Documented by: [id number] Cosigned by: [id number] Admin: 02/13/20 08:04 Dose: 5,000 units Documented by: [id number] Cosigned by: [id number] Admin: 02/12/20 21:03 Dose: 5,000 units Documented by: [id number] Cosigned by: [id number] Admin: 02/12/20 07:58 Dose: 5,000 units Documented by: [id number] Cosigned by: [id number] Admin: 02/11/20 21:15 Dose: 5,000 units Documented by: [id number] Cosigned by: [id number] Admin: 02/11/20 08:15 Dose: 5,000 units Documented by: [id number] Cosigned by: [id number] Admin: 02/10/20 21:14 Dose: 5,000 units Documented by: [id number] Cosigned by: [id number] Hydralazine HCl (Apresoline) 10 mg PO Q6H PRN PRN Reason: hypertension Stop: 03/12/20 16:29 Last Admin: 02/13/20 08:03 Dose: 10 mg Documented by: [id number] Admin: 02/12/20 22:49 Dose: 10 mg Documented by: [id number] Insulin Aspart (Novolog Flexpen) 0 units SC ACHS ALEX Stop: 03/12/20 07:29 Last Admin: 02/14/20 08:42 Dose: 4 units Documented by: [id number] Cosigned by: [id number] Admin: 02/13/20 20:44 Dose: 2 units Documented by: [id number] Cosigned by: [id number] Admin: 02/13/20 16:56 Dose: 6 units Documented by: [id number] Cosigned by: [id number] Admin: 02/13/20 13:16 Dose: 5 units Documented by: [id number] Cosigned by: [id number] Admin: 02/13/20 08:06 Dose: 4 units Documented by: [id number] Cosigned by: [id number] Admin: 02/12/20 20:59 Dose: Not Given Documented by: [id number] Cosigned by: [id number] Admin: 02/12/20 17:17 Dose: 5 units Documented by: [id number] Cosigned by: [id number] Admin: 02/12/20 12:15 Dose: 3 units Documented by: [id number] Cosigned by: [id number] Admin: 02/12/20 07:57 Dose: 4 units Documented by: [id number] Cosigned by: [id number] Admin: 02/11/20 21:15 Dose: 2 units Documented by: [id number] Cosigned by: [id number] Admin: 02/11/20 17:16 Dose: 3 units Documented by: [id number] Cosigned by: [id number] Admin: 02/11/20 13:14 Dose: Not Given Documented by: [id number] Admin: 02/11/20 08:14 Dose: 3 units Documented by: [id number] Cosigned by: [id number] Insulin Glargine (Lantus Solostar Pen) 10 units SC HS [facility] Stop: 03/13/20 20:59 Last Admin: 02/13/20 20:45 Dose: 10 units Documented by: [id number] Cosigned by: [id number] Admin: 02/12/20 21:02 Dose: 10 units Documented by: [id number] Cosigned by: [id number] Ioversol (Optiray 320 125ml) 119 ml IV ONCE PRN PRN Reason: Interaction Checking Stop: 02/14/20 11:22 Last Admin: 02/10/20 11:24 Dose: 119 ml Documented by: [id number] Lisinopril (Zestril) 5 mg PO QAM [facility] Stop: 03/14/20 08:59 Last Admin: 02/14/20 08:43 Dose: 5 mg Documented by: [id number] Admin: 02/13/20 08:04 Dose: 5 mg Documented by: [id number] Discontinued Medications Magnesium Sulfate/Dextrose (Magnesium Sulfate / D5w) 1 gm in 100 mls @ 100 mls/hr IV NOW STA Stop: 02/10/20 13:43 Last Infusion: 02/10/20 14:36 Dose: 0 mls/hr Documented by: [id number] Admin: 02/10/20 13:18 Dose: 100 mls/hr Documented by: [id number] Acetaminophen (Ofirmev) 65 mls @ 200 mls/hr IV NOW ONE; Protocol Stop: 02/10/20 13:04 Last Infusion: 02/10/20 13:18 Dose: 0 mls/hr Documented by: [id number] Admin: 02/10/20 13:01 Dose: 200 mls/hr Documented by: [id number] Calcium Gluconate 2,000 mg/ (Sodium Chloride) 70 mls @ 280 mls/hr IV NOW STA Stop: 02/10/20 13:20 Last Infusion: 02/10/20 13:39 Dose: 0 mls/hr Documented by: [id number] Admin: 02/10/20 13:18 Dose: 280 mls/hr Documented by: [id number] Lactated Ringer's (Lr) 1,000 mls @ 100 mls/hr IV .Q10H ALEX Stop: 02/12/20 03:59 Last Infusion: 02/12/20 00:37 Dose: 0 mls/hr Documented by: [id number] Admin: 02/11/20 14:16 Dose: 100 mls/hr Documented by: [id number] Infusion: 02/11/20 14:16 Dose: 100 mls/hr Documented by: [id number] Admin: 02/11/20 08:12 Dose: 100 mls/hr Documented by: [id number] Lactated Ringer's (Lr) 500 mls @ 999 mls/hr IV .Q31M ONE Stop: 02/11/20 09:50 Last Infusion: 02/11/20 10:28 Dose: 0 mls/hr Documented by: [id number] Admin: 02/11/20 09:30 Dose: 999 mls/hr Documented by: [id number] Sodium Chloride (Nss 1000ml) 1,000 mls @ 80 mls/hr IV .Q19L55M ALEX Stop: 02/12/20 22:59 Last Infusion: 02/12/20 23:55 Dose: 0 mls/hr Documented by: [id number] Admin: 02/12/20 11:20 Dose: 80 mls/hr Documented by: [id number] Insulin Aspart (Novolog Flexpen) 0 units SC Q6 ALEX Stop: 03/11/20 17:59 Last Admin: 02/10/20 23:29 Dose: Not Given Documented by: [id number] Cosigned by: [id number] Admin: 02/10/20 17:59 Dose: 2 units Documented by: [id number] Cosigned by: [id number] Insulin Glargine (Lantus Solostar Pen) 10 units SC HS ALEX Stop: 03/11/20 20:59 Last Admin: 02/10/20 21:15 Dose: 10 units Documented by: [id number] Cosigned by: [id number] Insulin Glargine (Lantus Solostar Pen) 0 units SC HS ALEX; Protocol Stop: 03/12/20 20:59 Last Admin: 02/11/20 21:14 Dose: 10 units Documented by: [id number] Cosigned by: [id number] Description This is a 21 electrode EEG with a single channel dedicated to limited EKG. The electrodes were placed in accordance with the International 10-20 system. There is a 10 Hz posterior dominant rhythm which is symmetrically distributed and attenuates with eye opening. There is a normal anterior to posterior organization. Photic stimulation is unremarkable. There is a symmetric frontal beta rhythm. There is a minimal degree of admixed theta activity seen in the latter part of the study with a few vertex waves. There is no focal or laterali zed slowing. No epileptiform abnormalities observed. Interpretation This is a normal-appearing awake/sleepy EEG. A normal EEG does not completely exclude a diagnosis of epilepsy. Additional clinical correlation may be needed. [facility] Procedure Codes Indication for Procedure (1) Seizure-like activity: Neurology Neurology: [id number] EEG include record awake & sleepy
--- NOTE | 2020-02-14 12:09 | Discharge Summary ---
Date of Service February 14, 2020 Admission HPI Per Admitting Provider Ms. Urbano woke up feeling unwell, unable to get her breakfast together and so pressed her medical alert button. Her last known well was last night at 9 pm per her son. She has a headache, slurred speech with aphasia. We are able to talk with yes and no questions but she has difficulty formulating sentences. Her daughter was bedside and also provided history. Patient was here in September with hypertension associated with encephalopathy. She denies any aches, chills, fevers, sob, chest pain, palpitations, n/v/d, constipation. No dysuria but she has been experiencing new urinary hesitancy. Pmhx: htn, DMII, sciatica Social: never smoker, no alcohol, lives alone Family: non contributory due to advanced age Primary Care Provider: Jez Jacob, DO Admission Exam Per Admitting Provider General: no distress Eyes: normal inspection, PERLL Respiratory: chest non tender, clear to auscultation, normal breath sounds, no respiratory distress, no accessory muscle use Cardiac: regular rate and rhythm, no rub or gallop, no murmur, no edema, no jvd GI/: active bowel sounds, no abd pain or tenderness, soft, non distended Extremities: normal range of motion, normal strength, non tender Neuro/Psych: alert and oriented, normal mood and affect, mild right arm drift, right facial droop, moderate aphasia and slurred speech, other manager semiconductor intact Skin: normal color, dry Principal Diagnosis Stroke-like symptoms, Headache Discharge Exam Constitutional + frail appearing, cooperative and comfortable; no acute distress Eyes + anicteric sclerae and PERRL ENMT Ears: no hearing impairment Nose: no external nose abnormality Neck trachea midline, no thyromegaly Respiratory normal respiratory effort, lungs clear to auscultation Cardiovascular Rate/Rhythm: regular rhythm and + bradycardic Heart Sounds: + murmur (systolic LSB) Gastrointestinal (Abdomen) normal bowel sounds, soft, nontender, no hepatosplenomegaly Musculoskeletal no cyanosis or clubbing, extremities motor strength 5/5 Skin no rashes, warm and dry Neurologic patellar DTR's 2+ bilat, sensation intact and PERRL, EOMI, accommodation nl, no face palsy, no dysarthria Psychiatric Orientation: alert and oriented x 3 Lymphatic no cervical or axillary lymphadenopathy Discharge Data Allergies Allergy/AdvReac Type Severity Reaction Status Date / Time No Known Allergies Allergy Verified 02/10/20 13:10 Consultations 02/10/20 12:56 ED Decision to Admit Stat 02/10/20 16:22 Consult Case Management - Discharge Planning Routine Consult Neurology Routine Ordered Studies 02/10/20 11:19 CT angio head w con Stat CT angio neck with con Stat CT head/brain wo con Stat 02/10/20 12:43 MR brain wo con Stat 02/11 ECHO Hospital Course (1) Stroke-like symptoms: * Possible TIA precluded by Headache. Also has history of L carotid stenosis which they have not wanted intervention for in the past. -- > Telestroke cart in the ED with tertiary care neurologist - rec ommended MRI, treatment of headache, monitoring blood pressure and possible EEG to rule out seizure as source of problems * CT head negative, CTA head negative, CTA neck with 50% left ICA focal stenosi s, MRI without acute finding * EEG normal-appearing awake/sleepy EEG * ECHO with mild LVH, mild AR, mild-mod MR * Continue home Plavix, atorvastatin * Consulted neurology - recommended EEG which was ordered and normal. Patient set up with event monitor and to follow up with cardiology outpatient Recommended following up with neurology in 6-8 weeks -- patient and daughter requesting to be seen by Dr. Medina in follow-up PT/OT/Speech evaluations completed Urine analysis and culture negative for infection Had been running 40-50bpm on telemetry, sinus rhythm, which increases to 90- 100s with activity. Not on any AV coleman blocking agents or reported syncope/falls (2) Hypertension: * Initially elevated up to 180s systolically on admission with reported headache * Headache improved with improvement of blood pressures * Instructed to keep BP log over the next two weeks and to follow up with her PCP * BP stable at 119/69 with resuming home lisinopril 5mg PO (3) Acute kidney injury: * RESOLVED -- Cr elevated to 1.8 on 02/10 and lisinopril had been held * Given IVF and Cr improved to 1.17, close to baseline * Not reported to have history of CKD, although patient's eGFR consistently 30- 60 since 2018 -- technically CKD III * Should follow up with PCP as outpatient (4) Spinal stenosis of lumbar region: * Sees Dr. Davis outpatient for pain management. Discussed with daughter that patient should probably push back her lumbar injection she should not hold Plavix until following up with neurology --> appointment cancelled per conversation with daughter ThursdayFebruary 12. (5) Carotid stenosis, left: * As seen on CTA and has been noted since 05/09/2019 * Discussed previously with daughter --> patient has not wanted intervention in the past --> Recommended that if they reconsidered they could be referred by her pcp to vascular surgery Continued statin and Plavix (6) Dyslipidemia: * Continue atorvastatin (7) Elevated troponin: * Troponin 0.082 and trended down to 0.07 -- no s/sx of ischemia * ECHO as above * Continued home plavix, atorvastatin (8) Thrombocytopenia: * Resolved (9) Hypomagnesemia: * Replaced in the ED (10) Hypocalcemia: * Replaced in the ED (11) Diabetes mellitus type II, controlled: * Last A1c August 6.8 --> repeat A1c 6.2. 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 Cr appears to be closer to 1.1 at baseline, but was elevated up to 1.8 during admission * See above -- IVF, Held lisinopril temporarily * Cr back to baseline, 1.17 (13) DVT prophylaxis: * SCDs, heparin subq while inpatient Discharged home with daughter. Total Time Total Time Spent Total Time Spent (In Minutes): 60 Discharge Plan Discharge Items Patient Disposition: Home - Home Health Services Reason For Visit: CVA Discharge Diagnosis: TIA, Headache Condition on Discharge: Good Goals: You have been hospitalized for an acute medical problem. During your stay at [facility], we have made an effort to correct the problem that brought you to the hospital while keeping you as comfortable as possible. Medications were used to bring your condition under control and your discharge instructions will include directions for any medications you should take after leaving the hospital. Please make sure you see your Primary Care Provider as part of your follow up plan. Activity: Resume your previous activity Non-emergency contact: Primary Care Provider and Neurologist Call non-emergency contact if: you have any medication questions and your symptoms worsen Follow-up/Referrals: Edward Syed MD [Physician] - (1 month for f/u Event Monitor ) Andrew Parrish MD [Physician] - 04/27/20 11:15 am (Please, follow up at [facility] with Dr. Parrish on ThursdayApril 27 at 11:15 am. *The office is located at [address] [place] [address] in [place]. If you need to change this appointment, call the office at [phone].) Jez Jacob DO [Primary Care Provider] - 02/20/20 1:10 pm (Please, follow up at Dr. Jez Jacob's office with his associate, Dr. Shankar Lynne, on ThursdayFebruary 19 at 1:10 pm. *If you need to change this appointment, call their office at [phone]. A CARDIAC EVENT MONITOR WILL BE MAILED TO YOUR HOME. THE KIT WILL INCLUDE EASY TO FOLLOW INSTRUCTIONS. THE RESULTS WILL BE SENT TO DR. JACOB'S OFFICE.) Blossom Hernandez PA-C [Physician Nut Cracker] - 03/27/20 11:00 am (Please, follow up at [facility] with Blossom Hernandez PA-C on ThursdayMarch 27 at 11:00 am. *The office is located at [address] [place] [address]. If you need to change this appointment, call the office at [phone].) Diet: Heart Healthy Addtl Attending Provider Instructions: You were hospitalized for stroke like symptoms. Neurology was consulted and imaging was negative for an acute stroke. An EEG was done to see if there was any seizure activity, and that was also negative. Imaging and urine were collected to rule out infection as a cause of your symptoms, and these were also negative. Your blood pressure had been elevated during this hospitalization, and in combination with your headache, it is possible that this may have been the cause of your symptoms. It is recommended that you check your blood pressure at home frequently and keep a log to bring to your primary care provider to see if you may need additional blood pressure control. Your blood pressures have been much better controlled and it is recommended that you continue your lisinopril at the 5mg by mouth daily dosing. You should follow up with neurology in the next 6-8 weeks, and per requested, you will be set up with the [facility] for follow up. You should follow up with your primary care provider in the next 5-7 days. An event monitor will be sent to your house to see if you possibly have underlying periods of atrial fibrillation. While on monitor in the hospital, this was not noted, but there is a possibility that you have periods of time when you could be and this would better help to picker packer on that. -- You should follow up with Dr. Syed in a month to review these results. Please return to the emergency if you have any worsening headache, visual changes, slurred or garbled speech, or for any symptoms that are concerning for you. It has been a pleasure being a part of the medical team providing for you while you have been in the hospital. Pending Studies at Discharge: No Stand-Alone Forms: Medications to Prevent Stroke, [facility] Medications and DC Order Prescriptions: New lisinopril [Zestril] 5 mg Tablet 5 mg PO QAM 30 Days Qty: 30 RF: 0 Continued (DME) OneTouch Ultra Blue Test Strip Strip See Dose Instructions .ROUTE .MEDSUPPLY Qty: 400 RF: 3 Lantus U-100 Insulin 100 unit/mL solution 15 units subcut HS Qty: 20 RF: 3 atorvastatin 40 mg tablet 40 mg PO HS Qty: 90 RF: 3 clopidogrel 75 mg tablet 75 mg PO HS RF: 0 multivitamin with minerals [Multiple Vitamin-Minerals] tablet 1 tab PO QAM RF: 0 (DME) insulin syringe-needle U-100 [BD Insulin Syringe Ultra-Fine] 0.5 mL 31 gauge x 5/16" syringe See Dose Instructions .ROUTE .MEDSUPPLY Qty: 10 RF: 0 (DME) pen needle, diabetic [ReliOn Pen [place]] 32 gauge x 5/32" needle See Dose Instructions .ROUTE .MEDSUPPLY Qty: 10 RF: 0 acetaminophen [Tylenol] 325 mg Tablet 325 mg PO Q6H PRN (Reason: Pain) RF: 0 insulin lispro [Humalog KwikPen Insulin] 100 unit/mL insulin pen 6 unit subcut BIDM RF: 0 Discharge Orders: Discharge Order (Routine); Ordered 02/14/20 Ordered By: Korin Garza/Other Patient Handouts: Managing Type 2 Diabetes Admission Data Admit Date/Time: 02/10/20 14:56 Attending Provider: Korin Hamilton Admit Provider: Nathen Torres Primary Care Provider: Jez Jacob Other Providers: Sara Tamez Other Interventions: Discharge Summary Assessment (RN) Last Done: 02/14/20 13:21 DC Date/Time DO NOT enter until pt leaves facility: 02/14/20 14:52 Supervising Physician Co-Signing Physician Notes PA Supervision Note: I personally saw and examined the patient. I verified all mac points and agree with SUJATHA Lopez with the following exceptions and/or additions: Patient feeling improved, no further speech issues. No concerns. Blood pressure with improved control Vitals reviewed Gen: AAOx3, NAD HEENT: Anicteric sclerae, EOMI CV: Regular rhythm, bradycardic, 2/6 systolic murmur at the lower sternal border, nl S1S2 Pulm: CTAB no wcr Abd: +BS soft NT ND no masses or hernias Ext: No edema, 2+ DP pulses Skin: No rashes, warm/dry Neuro: Full strength throughout 89-year-old female here with history of HTN, VANESSA, hyperlipidemia, DM 2, CKD stage III, here with possible TIA. Work-up as above negative for stroke, EEG was negative for seizures. Continue Plavix, statin and get cardiac event monitor as an outpatient Needs better blood pressure control-improved with resuming her home lisinopril -Stable for discharge to home Coding Level of Care Code D/C Day Management >30 mins Diagnoses Stroke-like symptoms R29.90 Hypertension I10 Hypertension type: unspecified Acute kidney injury N17.9 Spinal stenosis of lumbar region M48.061 Carotid stenosis, left I65.22 Dyslipidemia E78.5 Elevated troponin R79.89 Thrombocytopenia D69.6 Hypomagnesemia E83.42 Hypocalcemia E83.51 Diabetes mellitus type II, controlled E11.9 CKD (chronic kidney disease) stage 3, GFR 30-59 ml/min N18.3 DVT prophylaxis Z29.9
[2020-02-14] MEDS ORDERED: STROKE PATIENT DISCHARGE STA (13:43)
== END 2020-02-14 14:52 | disposition home health service (06) ==
LOC: ED 11:19 → 2N 14:56 → INTOOBSV 14:56 → SUATTDRO 14:56 → 2N 15:26